=== PATIENT | female | born 1965 | race Caucasian/White ===

== ENCOUNTER 2017-10-22 17:03 | Emergency (ER) | payer OTHER, SELFPAY ==
[2017-10-22 17:06] VITALS: BP 119/74; PULSE 96; RESP 20; TEMP 36.6; O2SAT 99; BMI 36.6
[2017-10-22 17:31] VITALS: BP 131/81; PULSE 89; RESP 20; TEMP 36.6; O2SAT 98; BMI 36.6
--- NOTE | 2017-10-22 17:33 | XR_ITS ---
XR foot RT min 3V HISTORY: Posttraumatic pain ITS.REASON: FALL ORDERING PHYSICIAN: Alessia Welsh PATIENT AGE: 51 years COMPARISON: None FINDINGS: No fracture or dislocation. No lytic or blastic change. There is normal mineralization.. The joint spaces are well-preserved. No significant degenerative/arthritic changes. No erosive changes evident. Nonspecific decreased density is noted at the distal fifth metatarsal and proximal aspect of the proximal phalanx of the toe may be due to subcortical cyst. IMPRESSION: No acute finding
--- NOTE | 2017-10-22 17:33 | XR_ITS ---
XR ankle RT min 3V HISTORY: Pain following injury ITS.REASON: FALL ORDERING PHYSICIAN: Alessia Welsh PATIENT AGE: 51 years COMPARISON: None FINDINGS: No fracture or dislocation. No lytic or blastic change. There is normal mineralization.. The joint spaces are well-preserved. No significant degenerative/arthritic changes. No erosive changes evident. Mild soft tissues swelling laterally IMPRESSION: No acute fracture. Soft tissue swelling laterally
--- NOTE | 2017-10-22 18:29 | HMH.EDUTC ---
[facility] [place] Impression: Right ankle sprain Qualifiers: Encounter type: initial encounter Involved ligament of ankle: unspecified ligament Qualified Code(s): S93.401A - Sprain of unspecified ligament of right ankle, initial encounter Disposition: Home, Self-Care Condition on Discharge: Good Instructions: DI for Ankle Sprain, How To Perform RICE (Rest, Ice, Compress, Elevate), How to Apply an Jeff Wrap, How to Use Crutches Additional Instructions: * weight bearing as tolerated * Rest * ice 15-20 mins 3-4 times a day * Jeff wrap and ankle brace for support and swelling unless in shower. Be sure not too tight but not too loose either * Elevate as discussed as much as possible to help reduce swelling and therefore, pain * Ibuprofen every 6 hours as needed for pain and inflammation. If you need something more, you can take tylenol every 4 hours as needed as long as your primary care provider has told you it is ok to take both. Referrals: Faith Russell MD [Primary Care Provider] - (Follow up IMMEDIATELY for new or worsening symptoms OR no noticeable improvement over the next 3-5 days.) Time of Disposition: 18:52 Medical Decision Making Vital Signs: 10/22/17 17:06 10/22/17 17:31 Temperature 98 F 97.9 F Temperature Source Tympanic Temporal Artery Scan Pulse Rate [Right Radial] 96 H 89 Respiratory Rate 20 20 Blood Pressure [Right Arm] 119/74 131/81 Blood Pressure Mean [Right Arm] 89 97 02 Sat by Pulse Oximetry 99 98 Oxygen Delivery Method Room Air Orders (Tests/Meds): ORDERS Category Date Time Status XR ankle RT min 3V Stat Exams 10/22/17 17:33 Taken XR foot RT min 3V Stat Exams 10/22/17 17:33 Taken - Radiology Data #1 Image(s): Ankle, Foot/Toes Image Reviewed: Yes I reviewed the patient's radiology image w/the ED provider Preliminary Findings: Normal/NAD Rvwd w/ MARCELLA Hernandez MD. - [place] Inquiry Pt receiving controlled substance: No [facility] [place] - General Stated complaint: AO 10/22/17 @ 1630 Fell inj to right ankle Time Seen by Provider: 10/22/17 17:30 Mode of Arrival: Wheelchair Source of Information: Patient Limitations: No Limitations Description of Symptoms (Recalled from Triage Doc. by RN): PT STATES SHE FELL AND HURT RIGHT FOOT AND IS NON WEIGHT BEARING. HEENT Symptoms (Recalled from RN notes): No Resp Symptoms (Recalled from RN notes): No Skin Symptoms (Recalled from RN notes): No MS Symptoms (Recalled from RN notes): Yes (RIGHT FOOT INJURY) Functional Status (Recalled from RN notes): NA - History of Present Illness Provider Complaint: c/o right ankle and foot pain. Reports that approx one hour before arrival she twisted her ankles. Walked down steps on porch and as she planted her left foot, ankle twisted causing her to twist the right. Minimal pain left ankle like a bruise. I am not worried about it. but having trouble bearing weight on right. No treatment before arrival. Pain worse with ambulation and ROM. Denies N/T - Related Data Allergies Allergy/AdvReac Type Severity Reaction Status Date / Time No Known Allergies Allergy Verified 10/22/17 17:37 - Worker's Comp Is this a Worker's Comp case?: No [facility] History I have reviewed the patient's past medical history: Yes (denies PMHx) Medical History: Denies:: Cancer, Diabetes Mellitus Type 1, Diabetes Mellitus Type 2, Hypertension, MRSA Other Surgeries: Yes: Other (cholecystectomy) Amputation: No Fractures: No - Social History Smoking Status: Current every day smoker Tobacco Type: cigarettes Alcohol Intake: never - Psychiatric History Expresses thoughts of harming self/others: None Suicide Plan Description: No Plan ROS Obtained: Yes Systems reviewed as appropriate & no additional complaints - Musculoskeletal Musculoskeletal: Reports as per HPI, Reports joint swelling (right ankle), Reports radiating pain into limb (into foot) - Integumentary/Breasts Skin/Breast: Denies change in skin color, Rama
--- NOTE | 2017-10-22 18:33 | ED_ITS ---
[facility] [place] Clinical Impression: Right ankle sprain Qualifiers: Encounter type: initial encounter Involved ligament of ankle: unspecified ligament Qualified Code(s): S93.401A - Sprain of unspecified ligament of right ankle, initial encounter Disposition: Home, Self-Care Condition on Discharge: Good Instructions: DI for Ankle Sprain, How To Perform RICE (Rest, Ice, Compress, Elevate), How to Apply an Jeff Wrap, How to Use Crutches Additional Instructions: * weight bearing as tolerated * Rest * ice 15-20 mins 3-4 times a day * Jeff wrap and ankle brace for support and swelling unless in shower. Be sure not too tight but not too loose either * Elevate as discussed as much as possible to help reduce swelling and therefore , pain * Ibuprofen every 6 hours as needed for pain and inflammation. If you need something more, you can take tylenol every 4 hours as needed as long as your primary care provider has told you it is ok to take both. Referrals: Faith Russell MD [Primary Care Provider] - (Follow up IMMEDIATELY for new or worsening symptoms OR no noticeable improvement over the next 3-5 days.) Time of Disposition: 18:52 Medical Decision Making Vital Signs: 10/22/17 17:06 10/22/17 17:31 Temperature 98 F 97.9 F Temperature Source Tympanic Temporal Artery Scan Pulse Rate [Right Radial] 96 H 89 Respiratory Rate 20 20 Blood Pressure [Right Arm] 119/74 131/81 Blood Pressure Mean [Right Arm] 89 97 02 Sat by Pulse Oximetry 99 98 Oxygen Delivery Method Room Air Orders (Tests/Meds): ORDERS Category Date Time Status XR ankle RT min 3V Stat Exams 10/22/17 17:33 Taken XR foot RT min 3V Stat Exams 10/22/17 17:33 Taken - Radiology Data #1 Image(s): Ankle, Foot/Toes Image Reviewed: Yes I reviewed the patient's radiology image w/the ED provider Preliminary Findings: Normal/NAD Rvwd w/ MARCELLA Hernandez MD. - Bienvenido Inquiry Pt receiving controlled substance: No [facility] [place] HPI - General Stated complaint: AO 10/22/17 @ 1630 Fell inj to right ankle Time Seen by Provider: 10/22/17 17:30 Mode of Arrival: Wheelchair Source of Information: Patient Limitations: No Limitations Description of Symptoms (Recalled from Triage Doc. by RN): PT STATES SHE FELL AND HURT RIGHT FOOT AND IS NON WEIGHT BEARING. HEENT Symptoms (Recalled from RN notes): No Resp Symptoms (Recalled from RN notes): No Skin Symptoms (Recalled from RN notes): No MS Symptoms (Recalled from RN notes): Yes (RIGHT FOOT INJURY) Functional Status (Recalled from RN notes): NA - History of Present Illness Provider Complaint: c/o right ankle and foot pain. Reports that approx one hour before arrival she twisted her ankles. Walked down steps on porch and as she planted her left foot, ankle twisted causing her to twist the right. Minimal pain left ankle like a bruise. I am not worried about it. but having trouble bearing weight on right. No treatment before arrival. Pain worse with ambulation and ROM. Denies N/T - Related Data Allergies Allergy/AdvReac Type Severity Reaction Status Date / Time No Known Allergies Allergy Verified 10/22/17 17:37 - Worker's Comp Is this a Worker's Comp case?: No [facility] History I have reviewed the patient's past medical history: Yes (denies PMHx) Medical History: Denies:: Cancer, Diabetes Mellitus Type 1, Diabetes Mellitus Type 2, Hypertension, MRSA Other Surgeries: Yes: Other (chol
[2017-10-22 18:45] VITALS: BP 126/85; PULSE 76; RESP 18; TEMP 36.8; O2SAT 99
== END 2017-10-22 18:45 | disposition home or self-care (01) ==
LOC: ER 17:11 → UTC 17:12
PROVIDERS: Emergency Provider Nurse Practitioner Family; Family Provider Family Medicine; PCP Family Medicine
DX: S93.401A Sprain of unspecified ligament of right ankle, initial encounter (principal); W10.9XXA Fall (on) (from) unspecified stairs and steps, initial encounter; Y92.019 Unspecified place in single-family (private) house as the place of occurrence of the external cause; Z90.49 Acquired absence of other specified parts of digestive tract; F17.210 Nicotine dependence, cigarettes, uncomplicated
CPT/HCPCS: 73610; 73630; 99202; 99281

== ENCOUNTER → 2019-05-14 08:18 | Outpatient (CLI) | payer OTHER, SELFPAY ==
--- NOTE | 2019-05-14 08:22 | CT_ITS ---
PROCEDURE: CT LUNG SCREENING CLINICAL INDICATION: CURRENT TOBACCO USE Eighty pack-year smoking history, asymptomatic for lung cancer. COMPARISON: No exams were available for comparison TECHNIQUE: The exam was performed on a GE Light Speed [address] scanner using 2.90 mGy CTDI. A low dose helical CT CHEST was performed on a multi-detector scanner. All CT scans at the facility use one or more dose reduction, viz: automated exposure control, ma/kV adjustment per patient size (including targeted exams where dose is matched to indication, i.e. head), or iterative reconstruction technique. The LDCT was performed in a facility that meets the criteria for the screening program. Data regarding this exam was submitted to ACR which is an approved registry. The order for this exam indicates that it came as a result of a lung cancer screening counseling shard decision-making visit that included all the elements required of such a visit including smoking cessation. The radiologist interpreting this exam meets the CMS criteria for the LDCT lung cancer screening program. The exam is reported using the Lung-RADS classification scale and reported to the ACR registry. NOTE: This study was performed for the specific purposes of lung cancer screening and is not an alternative to diagnostic chest CT. RADIATION DOSE: CTDI vol(CT dose Index-volume) = 2.90mG DLP (Dose Length Product) = 99.4 mGcm FINDINGS: Centrilobular emphysema. Bronchial thickening with hyperinflation consistent with bronchitis. There are 2 nodular densities in the right upper lobe measuring 3 mm each nonspecific. 4 mm noncalcified nodule right upper lobe anteriorly. 4 mm noncalcified nodule right middle lobe. Calcified granuloma right middle lobe. 4 mm nodule superior segment right lower lobe 5 mm nodule central aspect right lower lobe. Calcified nodule right lower lobe posterior laterally. 5 mm nodule lingula. Mild atelectatic or fibrotic changes are present in the lingula. Calcified nodule lingula inferiorly. OTHER FINDINGS: Left adrenal nodule at 2 cm consistent with an adenoma. IMPRESSION: Lung rads category 3 probably benign findings. There are multiple noncalcified nodules. Suggest 6 month follow-up COPD/centrilobular emphysema. Left adrenal adenoma Recommend six-month diagnostic CT to confirm short term stability of the multiple nodules Dictated by: Teo Maurice MD 05/16/2019 09:48 Electronically signed by Teo Maurice MD in [place] 05/20/2019 10:44
== END ==
PROVIDERS: PCP Family Medicine; Visit Provider Family Medicine
DX: Z87.891 Personal history of nicotine dependence (principal); Z12.2 Encounter for screening for malignant neoplasm of respiratory organs
CPT/HCPCS: 36415

== ENCOUNTER → 2020-03-26 11:09 | Outpatient (CLI) | payer OTHER, SELFPAY ==
[2020-03-26 11:45] VITALS: PULSE 89; PULSE 92
--- NOTE | 2020-03-26 12:10 | CT_ITS ---
PROCEDURE: CT CHEST W CON CLINCAL INDICATION: PULMONARY NODULE Follow-up pulmonary nodule COMPARISON: CT CT LUNG SCREENING from 05/14/2019 TECHNIQUE: IV Contrast: 75ml Optiray 350 Axial images obtained with sagittal and coronal reformats. All CT scans at the facility use one or more dose reduction, viz: automated exposure control, ma/kV adjustment per patient size (including targeted exams where dose is matched to indication, i.e. head), or iterative reconstruction technique. FINDINGS: HEART AND MEDIASTINAL STRUCTURES: No mediastinal or hilar mass or adenopathy. No evidence of aortic aneurysm or central pulmonary embolus. There is minimal thickening of the pericardium anteriorly. LUNGS AND PLEURAL SPACES: COPD with centrilobular emphysema. There is a mild degree of motion artifact which somewhat obscures fine detail. There are stable small bilateral pulmonary nodules as previously described. A subpleural nodular density noted in the superior segment right lower lobe series 3, image 45 is present along the major fissure measuring 4 mm not significantly changed. There is evidence of old granulomatous disease. There is some mild diffuse bronchial thickening. Minimal nodularity also noted in the left major fissure unchanged superiorly. Subpleural nodule superior segment left lower lobe at 3 mm image 35 series 3 unchanged faint 4 mm sub solid nodule in the lingula image 55 series 3 unchanged. No new nodules are evident. There are some fibrotic changes in the left lung base. The BONY STRUCTURES: No acute bony abnormalities apparent. UPPER ABDOMEN: The no change in the 1.3 cm left adrenal nodule the ADDITIONAL FINDINGS: No other significant abnormalities. IMPRESSION: COPD with centrilobular emphysema with stable appearance of the chest. No change in the small pulmonary nodules with no new nodules evident. Recommend annual LD CT for follow-up. Dictated b Teo Maurice MD 03/27/2020 10:17 Teo Maurice MD in [place] 03/27/2020 10:17
== END ==
PROVIDERS: PCP Family Medicine; Visit Provider Family Medicine
DX: R06.02 Shortness of breath (principal)
CPT/HCPCS: 71260; 94060; 94640; Q9967

== ENCOUNTER → 2021-06-17 12:18 | Outpatient (CLI) | payer OTHER, SELFPAY ==
--- NOTE | 2021-06-17 12:30 | XR_ITS ---
PROCEDURE: XR CHEST PORTABLE CLINICAL HISTORY: COVID TESTING, no symptoms, smoking history COMPARISON: CT CT CHEST W CON from 03/26/2020 FINDINGS: The cardiomediastinal silhouette and pulmonary vascularity are within normal limits. The lungs are clear without infiltrates, suspicious nodules, or pleural effusions. No acute bony abnormalities. IMPRESSION: No acute findings. Dictated by: Dr. Zackary Ovalles MD 06/17/2021 12:47 Dr. Zackary Ovalles MD in [place] 06/17/2021 12:47
[2021-06-17 13:12] LABS: Basophils % 0.4 % (0.1-2.0); Eosinophils # 0.1 K/mm3 (0.0-0.4); Eosinophils % 1.2 % (0.1-12.0); Hematocrit 45.1 % (37.0-47.0); Hemoglobin 14.3 g/dL (12.2-16.2); Lymphocytes # 1.8 K/mm3 (0.7-4.5); Lymphocytes % 20.8 % (10-50); Mean Corpuscular HGB Conc 31.7 g/dL (31.8-35.4); Mean Corpuscular Hemoglobin 28.7 pg (27.0-31.2); Mean Corpuscular Volume 90.5 fl (81-99); Mean Platelet Volume 7.5 fl (7.4-10.4); Monocytes # 0.3 K/mm3 (0.1-1.0); Monocytes % 3.3 % (1.7-9.3); Neutrophils # 6.5 K/mm3 (1.8-7.8); Neutrophils % 74.2 % (37.0-80.0); Platelet Count 328 K/mm3 (142-424); Red Blood Count 4.99 M/mm3 (4.20-5.40); Red Cell Distribution Width 13.4 % (11.5-17.5); White Blood Count 8.7 K/mm3 (4.8-10.8)
== END ==
PROVIDERS: PCP Family Medicine; Visit Provider Family Medicine
DX: Z20.822 Contact with and (suspected) exposure to COVID-19 (principal)
CPT/HCPCS: 36415; 71045; 85025; C9803; U0003; U0005

== ENCOUNTER → 2021-09-28 17:36 | Outpatient (CLI) | payer OTHER, SELFPAY ==
[2021-09-28 18:14] VITALS: BMI 22.3
== END ==
PROVIDERS: Visit Provider Nurse Practitioner
DX: U07.1 COVID-19 (principal)
CPT/HCPCS: C9803; U0003; U0005

== ENCOUNTER → 2021-11-17 09:44 | Outpatient (CLI) | payer OTHER, SELFPAY ==
--- NOTE | 2021-11-17 | US_ITS ---
FINAL REPORT CLINICAL HISTORY: .sore throat FINDINGS: THYROID ULTRASOUND Sonographic images of the thyroid was obtained. The right lobe of the thyroid measures 4.1 x 1.5 x 1.3 cm. The left lobe of the thyroid measures 4.0 x 1.7 x 1.4 cm. The isthmus measures 3 mm. There is a 1.4 x 0.8 x 0.9 cm nodule in the right lobe which is predominantly solid and hypoechoic, TI-RADS 4. In the left lobe there are the following nodules: 1.2 x 1.1 x 0.9 cm predominately cystic with septations, TI-RADS 1. 0.3 x 0.3 x 0.3 cm in the lower pole which is solid and hypoechoic, TI-RADS 4. A 0.7 x 0.6 solid and hypoechoic, TI-RADS 4. IMPRESSION: Bilateral nodules as described. Recommend follow-up ultrasound in 6 months. Reviewed, Interpreted and Dictated by Tony Bar III, MD Transcribed by Billie Wilkes Authenticated by Tony Bar III, MD on 11/17/2021 11:28:[address] [facility]
--- NOTE | 2021-11-17 09:47 | US_ITS ---
FINAL REPORT CLINICAL HISTORY: CERVICAL LYMPHADENOPATHY; SORE THROAT; AREA OF PAIN UPPER RT NECK FINDINGS: Sonographic images of the neck soft tissue were obtained. There are small normal size lymph nodes in the neck bilaterally. No other mass or fluid collection is identified. IMPRESSION: No abnormal mass or fluid collection identified. Reviewed, Interpreted and Dictated by Tony Bar III, MD Transcribed by Krystal Anderson Authenticated by Tony Bar III, MD on 11/17/2021 03:47:39 PM [facility]
== END ==
LOC: RAD 09:44
PROVIDERS: PCP Family Medicine; Visit Provider Nurse Practitioner
DX: R59.0 Localized enlarged lymph nodes (principal)
CPT/HCPCS: 76536

== ENCOUNTER → 2022-04-06 07:01 | Outpatient (CLI) | payer OTHER, SELFPAY | LOC: LAB.DROPOF 04-07 07:01 | PROVIDERS: PCP Nurse Practitioner; Visit Provider Nurse Practitioner | DX: N30.01 Acute cystitis with hematuria (principal); R30.0 Dysuria | CPT/HCPCS: 87086 ==

== ENCOUNTER 2022-05-28 18:09 | Emergency (ER) | payer OTHER, SELFPAY ==
[2022-05-28 19:10] VITALS: BP 122/69; PULSE 87; RESP 19; TEMP 36.8; O2SAT 96; BMI 32.9
--- NOTE | 2022-05-28 19:27 | EXP.UTC ---
Discharge Plan Disposition Patient Disposition: Home, Self-Care Condition: Good Prescriptions Prescriptions: New benzonatate [benzonatate] 100 mg capsule 100 mg PO TIDP PRN (Reason: Cough) Qty: 30 0RF ondansetron 4 mg Tablet,Disintegrating 4 mg PO Q8H PRN (Reason: Nausea) Qty: 12 0RF No Action cefuroxime axetil 500 mg tablet 500 mg PO BID 7 Days Qty: 14 0RF Referrals Follow up/Referrals: Newton Chatterjee MD [Primary Care Provider] - See instructions Activity Restrictions/Add. Instructions Additional Instructions/Restrictions: Drink plenty of fluids. Take tylenol or ibuprofen for pain or fever. Take the medications as directed. Follow up with your regular doctor. GO TO THE ER FOR ANY WORSENING SYMPTOMS Quarantine until you know the results of your covid-19 test. Notify your school or workplace of your results and follow their instructions regarding return to work/school. Clinical Impressions Clinical Impression: Viral syndrome Instructions Patient Instructions: Coronavirus Disease 2019, Preventing the Spread of Coronavirus Discharge Instructions Discharge ED Provider: Anoop Walker [facility] General Stated complaint: covid test Mode of Arrival: Ambulatory Source of Information: Patient Limitations: No Limitations Time Seen by Provider: 05/28/22 19:26 HEENT Symptoms (Recalled from RN notes): Yes Resp Symptoms (Recalled from RN notes): Yes Skin Symptoms (Recalled from RN notes): No MS Symptoms (Recalled from RN notes): No Functional Status (Recalled from RN notes): n/a History of Present Illness Provider Complaint: pt here for covid test. She was exposed Tuesday. symptoms include headache, body aches, fever, chills, cough. Related Data Previous Rx's Medication Instructions Recorded cefuroxime axetil 500 mg tablet 500 mg PO BID 7 days #14 tabs 04/06/22 benzonatate 100 mg capsule 100 mg PO TIDP PRN Cough #30 caps 05/28/22 ondansetron 4 mg disintegrating 4 mg PO Q8H PRN Nausea #12 tabs 05/28/22 tablet Allergies Allergy/AdvReac Type Severity Reaction Status Date / Time No Known Allergies Allergy Verified 05/28/22 19:13 Worker's Comp Is this a Worker's Comp case?: No [facility] Social History Smoking Status: Current every day smoker tobacco type: cigarettes alcohol intake: never current occupational status: employed Travel in the last 8 weeks: None ROS Obtained: Yes All systems reviewed & no additional complaints except as documented Constitutional Constitutional: Reports chills and Reports fever(s) Eyes Eyes: Denies eye discharge ENT Ears, Nose, Mouth, and Throat: Reports as per HPI Cardiovascular Cardiovascular: Denies chest pain Respiratory Respiratory: Denies chest congestion and Reports cough Gastrointestinal Gastrointestingal: Reports nausea; Denies abdominal pain, constipation, cramping, diarrhea or vomiting Musculoskeletal Musculoskeletal: Denies arthralgias Integumentary/Breasts Skin/Breast: Denies rash Neurologic Neurologic: Denies paresthesias Physical Exam General General appearance: alert and in no apparent distress Head Head exam: atraumatic, normocephalic and normal inspection Eye Eye exam: Present normal appearance, PERRL and EOMI ENT ENT exam: Present normal exam, normal oropharynx, mucous membranes moist, TM's normal bilaterally and normal external ear exam Neck Neck exam: Present normal inspection, full ROM and trachea midline; Absent meningismus or lymphadenopathy Chest Chest inspection: Present normal inspection and symmetric chest wall rise; Absent tenderness Respiratory Respiratory exam: Present normal lung sounds bilaterally; Absent respiratory distress Cardiovascular Cardiovascular exam: Present regular rate and normal rhythm; Absent JVD Abdominal Exam Abdominal exam: Present soft and normal bowel sounds; Absent distention, tenderness or guarding Extremities Exam Ex
[2022-05-28 19:35] VITALS: BP 122/69; PULSE 87; RESP 19; TEMP 36.8
== END 2022-05-28 19:52 | disposition home or self-care (01) ==
PROVIDERS: Emergency Provider Nurse Practitioner Family; PCP Family Medicine
DX: U07.1 COVID-19 (principal)
CPT/HCPCS: 99212; C9803; G0463; U0003; U0005

== ENCOUNTER → 2022-07-12 13:57 | Outpatient (CLI) | payer OTHER, SELFPAY ==
--- NOTE | 2022-07-12 14:01 | XR_ITS ---
FINAL REPORT CLINICAL HISTORY: COPD exacerbation, RLL pneumonia, former smoker, quit today. COMPARISON: 06/17/2021 FINDINGS: 2 views of the chest were obtained . The heart is normal in size. The mediastinum is within normal limits. There is mild bronchial wall thickening which may represent bronchitis. There is no pneumothorax. Osseous structures are unremarkable. IMPRESSION: Mild bronchial wall thickening which may represent bronchitis . Reviewed, Interpreted and Dictated by Tony Bar III, MD Transcribed by Bertha Alonzo Authenticated and [facility]
== END ==
PROVIDERS: PCP Family Medicine; Visit Provider Nurse Practitioner
DX: J18.9 Pneumonia, unspecified organism (principal); J44.1 Chronic obstructive pulmonary disease with (acute) exacerbation
CPT/HCPCS: 71046

== ENCOUNTER → 2022-07-14 16:58 | Outpatient (CLI) | payer OTHER, SELFPAY ==
[2022-07-14 17:02] LABS: Adenovirus,PCR Not Detected (NotDetected); Bordetella Pertussis Not Detected (NotDetected); Chlamydophila Pneumoniae, PCR Not Detected (NotDetected); Coronavirus 19, PCR Not Detected (NotDetected); Coronavirus 229E Not Detected (NotDetected); Coronavirus NL63 Not Detected (NotDetected); Coronavirus OC43 Not Detected (NotDetected); Coronovirus HKU1,PCR Not Detected (NotDetected); Human Metapneumovirus Not Detected (NotDetected); Influenza A, PCR Not Detected (NotDetected); Influenza AH1, 2009 Not Detected (NotDetected); Influenza AH1, PCR Not Detected (NotDetected); Influenza AH3,PCR Not Detected (NotDetected); Influenza B, PCR Not Detected (NotDetected); Mycoplasma Pneumoniae, PCR Not Detected (NotDetected); Parainfluenza 1, PCR Not Detected (NotDetected); Parainfluenza 2, PCR Not Detected (NotDetected); Parainfluenza 3, PCR Not Detected (NotDetected); Parainfluenza 4, PCR Not Detected (NotDetected); Rhinovirus/Enterovirus Not Detected (NotDetected)
[2022-07-14 17:33] LABS: Basophils # 0.1 K/mm3 (0-0.2); Basophils % 1.2 % (0.1-2.0); Eosinophils # 0.2 K/mm3 (0.0-0.4); Eosinophils % 2.2 % (0.1-12.0); Hematocrit 46.6 % (37.0-47.0); Lymphocytes # 2.9 K/mm3 (0.7-4.5); Lymphocytes % 29.5 % (10-50); Mean Corpuscular HGB Conc 32.3 g/dL (31.8-35.4); Mean Corpuscular Hemoglobin 27.7 pg (27.0-31.2); Mean Corpuscular Volume 85.8 fl (81-99); Mean Platelet Volume 8.4 fl (7.4-10.4); Monocytes # 0.3 K/mm3 (0.1-1.0); Monocytes % 3.3 % (1.7-9.3); Neutrophils # 6.3 K/mm3 (1.8-7.8); Neutrophils % 63.7 % (37.0-80.0); Platelet Count 322 K/mm3 (142-424); Red Blood Count 5.43 M/mm3 (4.20-5.40); Red Cell Distribution Width 14.8 % (11.5-17.5); White Blood Count 9.9 K/mm3 (4.8-10.8)
[2022-07-14 18:52] LABS: Chloride 98 mmol/L (98-107); Potassium 5.1 mmoL/L (3.5-5.1); Sodium 137 mmol/L (136-145)
[2022-07-14 18:55] LABS: Alanine Aminotransferase 64 U/L (12-78); Albumin/Globulin Ratio 1.3 (1.1-1.8); Alkaline Phosphatase 111 U/L (38-126); Anion Gap 10.1 mEq/L (5-15); Aspartate Amino Transferase 43 U/L (14-36); Bilirubin,Total 0.2 mg/dl (0.2-1.3); Blood Urea Nitrogen 14 mg/dl (7-17); Carbon Dioxide 34 mmol/L (22.0-30.0); Estimated Glomerular Filt Rate 74 ml/min (>60); GFR (African American) 89 ML/MIN (>60)
[2022-07-14 18:56] LABS: Calcium 9.7 mg/dl (8.4-10.2); Glucose 94 mg/dl (74-100)
[2022-07-14 21:15] LABS: Respiratory Syncytial Virus Detected (NotDetected)
[2022-07-19 17:54] LABS: Histoplasma Gal'mannan Ag Ur <0.5 (<0.5 ng/mL)
== END ==
LOC: LAB 16:58
PROVIDERS: PCP Family Medicine; Visit Provider Nurse Practitioner
DX: J18.9 Pneumonia, unspecified organism (principal); J44.1 Chronic obstructive pulmonary disease with (acute) exacerbation; B97.4 Respiratory syncytial virus as the cause of diseases classified elsewhere
CPT/HCPCS: 36415; 80053; 85025; 87070; 87116; 87186; 87205; 87206; 87385; 87581; 87632; 87798; C9803; U0003; U0005

== ENCOUNTER → 2022-07-20 14:54 | Outpatient (CLI) | payer OTHER, SELFPAY ==
--- NOTE | 2022-07-20 15:00 | CT_ITS ---
FINAL REPORT TECHNIQUE: Axial CT images of the chest were obtained with contrast. Coronal reformatted images were also obtained. This study was performed with techniques to keep radiation doses as low as reasonably achievable, (ALARA). Individualized dose reduction techniques using automated exposure control or adjustment of mA and/or KV according to the patient's size were employed. CLINICAL HISTORY: LLL pneumonia COMPARISON: March 2020 FINDINGS: There is no evidence of mediastinal or hilar mass or adenopathy. No axillary mass or adenopathy is identified. Scattered tiny nodular areas are stable compatible with inflammatory nodules. No acute pulmonary opacity. Chronic bronchial wall thickening compatible with bronchitis. Underlying emphysema. Stable left adrenal nodule most likely an adenoma. IMPRESSION: No acute lung disease. Stable scattered tiny nodules, most likely postinflammatory. Reviewed, Interpreted and Dictated by Faith Claudio MD Transcribed by Fuad Jimenez Authenticated and . [facility]
== END ==
LOC: RAD 14:57
PROVIDERS: PCP Family Medicine; Visit Provider Nurse Practitioner
DX: J44.1 Chronic obstructive pulmonary disease with (acute) exacerbation (principal); J18.9 Pneumonia, unspecified organism
CPT/HCPCS: 71260; Q9967

== ENCOUNTER 2023-05-29 21:03 | Inpatient (IN) | payer OTHER, SELFPAY ==
[2023-05-29] VITALS (7 sets, daily range): BP systolic 120–142; BP diastolic 70–91; PULSE 100–124; RESP 18–29; TEMP 36.6–36.8; O2SAT 88–95; BMI 36.6; BMI 36.1
--- NOTE | 2023-05-29 21:06 | ECG_ITS ---
APPROVED REPORT Exam: Resting ECG HR:119 bpm ECG Measurements Heart Rate 119 AXES [place] 161 P 80 QRSd 73 QRS 77 QT 288 T 68 QTc 359 Conclusion SINUS TACHYCARDIA ABNORMAL RHYTHM ECG UNCONFIRMED REPORT Electronically signed by : Elan Ley MD 05/30/2023 19:39:14
--- NOTE | 2023-05-29 21:26 | XR_ITS ---
PROCEDURE INFORMATION: Exam: XR Chest Exam date and time: 05/29/2023 9:52 PM Age: 57 years old Clinical indication: Cough and shortness of breath and other: Tightness; Smoker's cough; Additional info: Dyspnea TECHNIQUE: Imaging protocol: Radiologic exam of the chest. Views: 1 view. COMPARISON: CT CHEST W CON 07/20/2022 3:13 PM FINDINGS: Lungs: No evidence of acute pulmonary disease or infiltrates; lung bland appear clear. Pleural spaces: No evidence of pleural effusion, pneumothorax, or pleural thickening in the visualized pleural spaces. Heart/Mediastinum: No evidence of mediastinal widening or cardiac silhouette enlargement; the mediastinum and heart appear within normal limits for contour and size. Diaphragm: Slight elevation of left hemidiaphragm Bones/joints: No evidence of acute osseous abnormalities within the visualized portions of the thoracic spine and ribs. Osseous structures appear appropriate for patient age. IMPRESSION: No dense parenchymal consolidation, pleural effusion, or pneumothorax.
--- NOTE | 2023-05-29 21:28 | HMH.EDGENADL ---
Discharge Plan Disposition Patient Disposition: Still a Patient Prescriptions Prescriptions: No Action No Known Home Medications Referrals Follow up/Referrals: Annette Resendiz APRN [Primary Care Provider] - See instructions Clinical Impressions Clinical Impression: Acute exacerbation of chronic obstructive airways disease, Hypoxemia requiring supplemental oxygen, Acute hypercapnic respiratory failure Discharge ED Provider: Cheli Flowers General Adult HPI General Chief complaint: Shortness of Breath/Dyspnea Stated complaint: chest tightness/COPE Time Seen by Provider: 05/29/23 21:16 Mode of Arrival: Ambulatory Source of Information: Patient Limitations: No Limitations Description of Symptoms (Recalled from ER Triage Doc. by RN): pt reports increase SOA and chest tightness since yesterday am, reports productive cough. States she has COPD. History of Present Illness HPI narrative: Patient is a 57-year-old female with a history of COPD who for the last 2 days has had cough fevers chills headache cough increasing sputum production increasing wheezing and shortness of breath over the last 48 hours. She has not had her flu vaccine or COVID vaccines in the past. She has not had any sick contacts that she is aware of. Tmax has been 98 but she states she is felt febrile at home. No chest pain chest tightness. Denies any history of heart failure or any other past medical history. Related Data Home Medications Medication Instructions Recorded Confirmed No Known Home Medications 05/29/23 05/29/23 Allergies Allergy/AdvReac Type Severity Reaction Status Date / Time No Known Allergies Allergy Verified 07/14/22 15:29 [facility] Disclaimer: The information contained in this section may have been updated after the patient was seen, as this information can be updated by other users. Medical History (Updated 05/29/23 @ 22:24 by Cheli Flowers MD) Chronic obstructive pulmonary disease Surgical History (Updated 07/14/22 @ 15:31 by Veronica Saeed) History of cholecystectomy Family History (Updated 07/14/22 @ 15:31 by Veronica Saeed) Other Cancer Diabetes Hyperlipidemia Hypertension Social History Smoking Status: Current every day smoker tobacco type: cigarettes alcohol intake: never current occupational status: employed Travel in the last 8 weeks: None ROS Obtained: Yes All systems reviewed & no additional complaints except as documented Physical Exam General General appearance: alert and in no apparent distress Respiratory Respiratory exam: Present other (Diffuse expiratory wheezing primarily in the bilateral bases no excess or muscle use no respiratory distress oxygen saturations 88% on room air onto his nasal cannula oxygen saturations 94%) Cardiovascular Cardiovascular exam: Present regular rate; Absent tachycardia Neurological Exam Neurological exam: Present alert and oriented X3 Medical Decision Making Bienvenido Inquiry Pt receiving controlled substance: No Vital Signs: 05/29/23 21:03 05/29/23 21:31 05/29/23 22:01 Temperature 98.2 F Temperature Source Oral Pulse Rate 112 H 108 H Pulse Rate [Right] 124 H Respiratory Rate 24 22 Blood Pressure 139/72 Blood Pressure [Right Arm] 142/91 H Blood Pressure Mean 101 Blood Pressure Mean [Right Arm] 108 Blood Pressure Source [Right Arm] Automatic Cuff Blood Pressure Position [Right Arm] Supine 02 Sat by Pulse Oximetry 88 L 95 Oxygen Delivery Method Room Air Room Air 05/29/23 22:01 Temperature Temperature Source Pulse Rate 111 H Pulse Rate [Right] Respiratory Rate Blood Pressure Blood Pressure [Right Arm] Blood Pressure Mean Blood Pressure Mean [Right Arm] Blood Pressure Source [Right Arm] Blood Pressure Position [Right Arm] 02 Sat by Pulse Oximetry Oxygen Delivery Method Lab Data Lab results reviewed: Yes I
[2023-05-29 21:44] LABS: Basophils % 0.3 % (0.1-2.0); Eosinophils # 0.2 K/mm3 (0.0-0.4); Eosinophils % 2.3 % (0.1-12.0); Hematocrit 48.6 % (37.0-47.0); Hemoglobin 15.4 g/dL (12.2-16.2); Lymphocytes # 1.6 K/mm3 (0.7-4.5); Lymphocytes % 19.8 % (10-50); Mean Corpuscular HGB Conc 31.7 g/dL (31.8-35.4); Mean Corpuscular Hemoglobin 27.3 pg (27.0-31.2); Mean Platelet Volume 8.4 fl (7.4-10.4); Monocytes # 0.4 K/mm3 (0.1-1.0); Monocytes % 4.8 % (1.7-9.3); Neutrophils # 5.7 K/mm3 (1.8-7.8); Neutrophils % 72.8 % (37.0-80.0); Platelet Count 306 K/mm3 (142-424); Red Blood Count 5.66 M/mm3 (4.20-5.40); Red Cell Distribution Width 13.9 % (11.5-17.5); White Blood Count 7.8 K/mm3 (4.8-10.8)
[2023-05-29 21:47] LABS: Alanine Aminotransferase 30 U/L (12-78); Albumin Level 4.6 g/dl (3.5-5.0); Alkaline Phosphatase 109 U/L (38-126); Anion Gap 14.2 mEq/L (5-15); Aspartate Amino Transferase 35 U/L (14-36); Bilirubin,Total 0.4 mg/dl (0.2-1.3); Blood Urea Nitrogen 10 mg/dl (7-17); Calcium 8.9 mg/dl (8.4-10.2); Carbon Dioxide 29 mmol/L (22.0-30.0); Chloride 100 mmol/L (98-107); Creatinine Clearance Estimated 145 mL/min (50-200); Estimated Glomerular Filt Rate 102 ml/min (>60); GFR (African American) 124 ML/MIN (>60); Globulin 4.5 g/dL (1.3-3.2); Glucose 117 mg/dl (74-100); Potassium 4.2 mmoL/L (3.5-5.1); Sodium 139 mmol/L (136-145); Total Protein,Serum 9.1 g/dl (6.3-8.2)
[2023-05-29 21:58] LABS: VBG Base Excess -0.7 mmol/L (-2.4-2.3); VBG HCO3 26.5 mmol/L (23-30); VBG Oxygen Saturation 85.1 % (50-70); VBG PH 7.25 mmol/L (7.31-7.41); VBG PO2 51.8 mmol/L (28-40); VBG Total CO2 28.4 mmol/L (23-27)
[2023-05-29 21:58] LABS: NT Pro Brain Natriuretic Pep. 115 pg/mL (0-125)
[2023-05-29 22:02] LABS: VBG PCO2 61.2 mmol/L (35-51)
[2023-05-29 22:03] LABS: Troponin I < 0.01 ng/ml (0.00-0.034)
--- NOTE | 2023-05-29 22:04 | PC.NURSE ---
Will from [facility] called with critical values from the ABG. CO2- 61.2. PO2- 51. O2 sat- 85%. Advised RN and MD of results. CR
--- NOTE | 2023-05-29 22:26 | PC.NURSE ---
Called house for admission
[2023-05-29 22:48] LABS: Coronavirus 19, PCR Not Detected (NotDetected); Influenza A, PCR Not Detected (NotDetected); Influenza B, PCR Not Detected (NotDetected)
--- NOTE | 2023-05-29 22:55 | EXP.HP ---
History of Present Illness *Admission Date: 05/29/23 *Reason for visit:: SOB *History of present illness: This is a 57-year-old female with a PMHx of COPD and obesity who has had chills, headache and cough, increased wheezing and shortness of breath over the last 48 hours. She has not had any sick contacts that she is aware of. Tmax has been 98 but she states she is felt febrile at home. No chest pain chest tightness. Denied any history of heart failure or any other past medical history. Admitted for further treatment. [facility] Disclaimer: The information contained in this section may have been updated after the patient was seen, as this information can be updated by other users. Medical History (Updated 05/30/23 @ 04:14 by Wilfredo Rosenbaum APRN) Chronic obstructive pulmonary disease Surgical History (Updated 07/14/22 @ 15:31 by Veronica Saeed) History of cholecystectomy Family History (Updated 07/14/22 @ 15:31 by Veronica Saeed) Diabetes Hyperlipidemia Cancer Hypertension Social History Smoking Status: Current every day smoker tobacco type: cigarettes alcohol intake: never current occupational status: employed Travel in the last 8 weeks: None Review of Systems Review of Systems Review of systems:: pertinent systems reviewed and negative unless documented below Meds Home Medications and Allergies Home Medications Medication Instructions Recorded Confirmed Type albuterol sulfate 90 mcg/actuation 1 inh inhalation QIDP PRN 05/29/23 05/30/23 History aerosol inhaler (ProAir HFA) Shortness Of Breath ipratropium 0.5 mg-albuterol 3 mg 3 ml inhalation Q4HP PRN Shortness 05/29/23 05/30/23 History (2.5 mg base)/3 mL nebulization Of Breath soln umeclidinium 62.5 mcg-vilanterol 1 ea inhalation DAILY Breathing 05/29/23 05/29/23 History 25 mcg/actuation powdr for Problems inhalation (Anoro Ellipta) New Prescriptions to Start Prescriptions: Allergies Allergy/AdvReac Type Severity Reaction Status Date / Time No Known Allergies Allergy Verified 07/14/22 15:29 Exam Data for Last 24 hours Vital signs and Labs for Last 24 Hours: Temp Pulse Resp BP Pulse Ox O2 Del Method 97.9 F 100 H 24 120/71 94 L BiPAP 05/29/23 22:48 05/29/23 22:48 05/29/23 22:48 05/29/23 22:48 05/29/23 22:30 05/29/23 22:48 Laboratory Results - last 24 hr 05/29/23 21:08: WBC 7.8, RBC 5.66 H, Hgb 15.4, Hct 48.6 H, MCV 86.0, MCH 27.3, MCHC 31.7 L, RDW 13.9, Plt Count 306, MPV 8.4, Neut % (Auto) 72.8, Lymph % (Auto) 19.8, Mcculloch % (Auto) 4.8, Eos % (Auto) 2.3, Baso % (Auto) 0.3, Neut # (Auto) 5.7, Lymph # (Auto) 1.6, Mcculloch # (Auto) 0.4, Eos # (Auto) 0.2, Baso # (Auto) 0.0, Sodium 139, Potassium 4.2, Chloride 100, Carbon Dioxide 29, Anion Gap 14.2, BUN 10, Creatinine 0.60, Estimated Creat Clear 145, Estimated GFR 102, Est GFR ( Amer) 124, Glucose 117 H, Calcium 8.9, Total Bilirubin 0.4, AST 35, ALT 30, Alkaline Phosphatase 109, Troponin I < 0.01, NT-Pro-B Natriuret Pep 115, Total Protein 9.1 H D, Albumin 4.6, Globulin 4.5 H, Albumin/Globulin Ratio 1.0 L 05/29/23 21:29: VBG pH 7.25 L, VBG pCO2 61.2 H, VBG pO2 51.8 H, VBG HCO3 26.5, VBG Total CO2 28.4 H, VBG O2 Saturation 85.1 H, VBG Base Excess -0.7 05/29/23 22:14: Lactate 1.0 I & O for Last 24 hours: Intake & Output 05/26/23 05/27/23 05/28/23 05/29/23 23:59 23:59 23:59 23:59 Weight 90.718 kg Constitutional Constitutional: mild distress and cooperative *Routine HEENT Exam Head: Present normocephalic and atraumatic Eye: Present EOMI, PERRL and normal accommodation ENT: Present mucous membranes moist *Routine Neck Exam Neck: Present supple, full ROM and trachea midline *Routine Respiratory Exam Respiratory: Present wheezes, diminished air movement, normal respiratory effort and able to speak in complete sentences *Routine Cardiovascular Exam Cardiovascular: Present RRR, Normal S1,
--- NOTE | 2023-05-29 23:13 | PC.NURSE ---
Patient arrived to floor via stretcher at 22:56.
[2023-05-30] VITALS (9 sets, daily range): BP systolic 119–141; BP diastolic 65–78; PULSE 86–105; RESP 16–20; TEMP 36.7–37; O2SAT 90–96; BMI 36.1
[2023-05-30 00:58] LABS: Troponin I < 0.01 ng/ml (0.00-0.034)
[2023-05-30 04:09] LABS: Troponin I < 0.01 ng/ml (0.00-0.034)
[2023-05-30 06:58] LABS: Basophils % 0.2 % (0.1-2.0); Eosinophils # 0.1 K/mm3 (0.0-0.4); Hematocrit 44.6 % (37.0-47.0); Hemoglobin 14.4 g/dL (12.2-16.2); Lymphocytes # 0.7 K/mm3 (0.7-4.5); Mean Corpuscular HGB Conc 32.3 g/dL (31.8-35.4); Mean Corpuscular Hemoglobin 27.8 pg (27.0-31.2); Monocytes # 0.1 K/mm3 (0.1-1.0); Monocytes % 1.7 % (1.7-9.3); Neutrophils # 5.5 K/mm3 (1.8-7.8); Platelet Count 265 K/mm3 (142-424); Red Blood Count 5.18 M/mm3 (4.20-5.40); Red Cell Distribution Width 13.9 % (11.5-17.5); White Blood Count 6.4 K/mm3 (4.8-10.8)
[2023-05-30 07:02] LABS: MANUAL DIFFERENTIAL MANUAL DIFFERENTIAL (MANUAL DIFF)
[2023-05-30 07:04] LABS: Chloride 103 mmol/L (98-107); Potassium 4.7 mmoL/L (3.5-5.1); Sodium 137 mmol/L (136-145)
[2023-05-30 07:06] LABS: Alanine Aminotransferase 23 U/L (12-78); Aspartate Amino Transferase 30 U/L (14-36); Blood Urea Nitrogen 9 mg/dl (7-17); Creatinine Clearance Estimated 142 mL/min (50-200); Estimated Glomerular Filt Rate 102 ml/min (>60); GFR (African American) 124 ML/MIN (>60)
[2023-05-30 07:07] LABS: Albumin Level 4.2 g/dl (3.5-5.0); Albumin/Globulin Ratio 1.1 (1.1-1.8); Alkaline Phosphatase 98 U/L (38-126); Anion Gap 13.7 mEq/L (5-15); Bilirubin,Total 0.3 mg/dl (0.2-1.3); Calcium 8.4 mg/dl (8.4-10.2); Carbon Dioxide 25 mmol/L (22.0-30.0); Globulin 3.9 g/dL (1.3-3.2); Glucose 158 mg/dl (74-100); Magnesium 2.5 mg/dl (1.6-2.3); Total Protein,Serum 8.1 g/dl (6.3-8.2)
--- NOTE | 2023-05-30 07:19 | PC.NURSE ---
pt admitted for resp acidosis, pt alert and oriented x3, o2@2l/nc, blood cx.v sputum cx pending, abx given
[2023-05-30 07:53] LABS: Lymphocytes % 6 % (10-50); Monocytes % 2 % (2-9); Neutrophils % 90 % (42-76); Total Cells Counted 100
[2023-05-30 07:58] LABS: Platelet Estimate Normal; RBC Morphology Normal
[2023-05-30 08:30] LABS: Adenovirus,PCR Not Detected (NotDetected); Coronavirus 19, PCR Not Detected (NotDetected); Coronavirus 229E Not Detected (NotDetected); Coronavirus NL63 Not Detected (NotDetected); Coronovirus HKU1,PCR Not Detected (NotDetected); Human Metapneumovirus Not Detected (NotDetected); Influenza A, PCR Not Detected (NotDetected); Influenza AH1, 2009 Not Detected (NotDetected); Influenza AH1, PCR Not Detected (NotDetected); Influenza AH3,PCR Not Detected (NotDetected); Influenza B, PCR Not Detected (NotDetected); Parainfluenza 1, PCR Not Detected (NotDetected); Parainfluenza 2, PCR Not Detected (NotDetected); Parainfluenza 3, PCR Not Detected (NotDetected); Parainfluenza 4, PCR Not Detected (NotDetected); Respiratory Syncytial Virus Not Detected (NotDetected); Rhinovirus/Enterovirus Not Detected (NotDetected)
--- NOTE | 2023-05-30 11:18 | EXP.ACUTE.PN ---
Subjective *Date: 05/30/23 *Time: 12:58 Interval history: Continues to have dyspnea and new oxygen requirement this morning. Wheezy on exam. Afebrile overnight. No nausea or vomiting. Unable to move without drops in her oxygen saturation. Denies chest pain or confusion. On 1 L oxygen this morning. Medical Exam Vital signs and Labs for Last 24 Hours: Vital Signs Temp Pulse Pulse Resp BP BP Pulse Ox 05/30/23 11:14 101 H 05/30/23 11:14 105 H 05/30/23 11:14 94 L 05/30/23 09:00 05/30/23 08:00 94 L 05/30/23 07:59 98.6 F 99 H 18 141/77 H 90 L 05/30/23 07:20 94 L 05/30/23 07:00 05/30/23 05:00 05/30/23 04:00 98.2 F 86 20 134/78 96 05/30/23 03:00 05/30/23 01:00 05/29/23 23:00 05/29/23 23:34 05/29/23 23:24 98.1 F 103 H 18 124/73 95 05/29/23 22:48 97.9 F 100 H 24 120/71 05/29/23 22:30 101 H 29 H 120/71 94 L 05/29/23 22:00 108 H 28 H 123/70 95 05/29/23 22:01 111 H 05/29/23 22:01 108 H 05/29/23 21:31 112 H 22 139/72 95 05/29/23 21:03 98.2 F 124 H 24 142/91 H 88 L O2 Del Method O2 Flow Rate 05/30/23 11:14 05/30/23 11:14 05/30/23 11:14 Nasal Cannula 2 05/30/23 09:00 Room Air 05/30/23 08:00 Room Air 05/30/23 07:59 Room Air 05/30/23 07:20 Room Air 05/30/23 07:00 Nasal Cannula 2 05/30/23 05:00 Nasal Cannula 2 05/30/23 04:00 Nasal Cannula 05/30/23 03:00 Nasal Cannula 2 05/30/23 01:00 Nasal Cannula 2 05/29/23 23:00 Nasal Cannula 2 05/29/23 23:34 Nasal Cannula 2 05/29/23 23:24 Nasal Cannula 2 05/29/23 22:48 BiPAP 05/29/23 22:30 05/29/23 22:00 05/29/23 22:01 05/29/23 22:01 05/29/23 21:31 Room Air 05/29/23 21:03 Room Air Intake and Output 05/29/23 05/30/23 05/30/23 23:59 07:59 15:59 Intake Total 840 / 840 Output Total 0 / 0 0 / 0 Balance 0 / 0 840 / 840 0 / 840 Intake: Intake, Oral Amount 840 / 840 Output: Output, Urine Amount 0 / 0 0 / 0 Other: Number of Unmeasured Voids 1 3 1 Weight 88.989 kg 88.989 kg Patient Weight 05/30/23 23:59 Weight 88.989 kg Laboratory Results - last 24 hr 05/29/23 21:08: WBC 7.8, RBC 5.66 H, Hgb 15.4, Hct 48.6 H, MCV 86.0, MCH 27.3, MCHC 31.7 L, RDW 13.9, Plt Count 306, MPV 8.4, Neut % (Auto) 72.8, Lymph % (Auto) 19.8, Morton % (Auto) 4.8, Eos % (Auto) 2.3, Baso % (Auto) 0.3, Neut # (Auto) 5.7, Lymph # (Auto) 1.6, Morton # (Auto) 0.4, Eos # (Auto) 0.2, Baso # (Auto) 0.0, Sodium 139, Potassium 4.2, Chloride 100, Carbon Dioxide 29, Anion Gap 14.2, BUN 10, Creatinine 0.60, Estimated Creat Clear 145, Estimated GFR 102, Est GFR ( Amer) 124, Glucose 117 H, Calcium 8.9, Total Bilirubin 0.4, AST 35, ALT 30, Alkaline Phosphatase 109, Troponin I < 0.01, NT-Pro-B Natriuret Pep 115, Total Protein 9.1 H D, Albumin 4.6, Globulin 4.5 H, Albumin/Globulin Ratio 1.0 L 05/29/23 21:29: VBG pH 7.25 L, VBG pCO2 61.2 H, VBG pO2 51.8 H, VBG HCO3 26.5, VBG Total CO2 28.4 H, VBG O2 Saturation 85.1 H, VBG Base Excess -0.7 05/29/23 22:14: Lactate 1.0 05/29/23 22:43: SARS-CoV-2 (PCR) Not detected, Influenza A Untype (PCR) Not detected, Influenza Type B (PCR) Not detected 05/30/23 00:15: Troponin I < 0.01 05/30/23 03:32: Troponin I < 0.01 05/30/23 06:10: WBC 6.4, RBC 5.18, Hgb 14.4, Hct 44.6, MCV 86.0, MCH 27.8, MCHC 32.3, RDW 13.9, Plt Count 265, MPV 9.0, Neut % (Auto) 86.0 H, Lymph % (Auto) 11.0, Morton % (Auto) 1.7, Eos % (Auto) 1.0, Baso % (Auto) 0.2, Neut # (Auto) 5.5, Lymph # (Auto) 0.7, Morton # (Auto) 0.1, Eos # (Auto) 0.1, Baso # (Auto) 0.0, Total Counted 100, Neutrophils % (Manual) 90 H, Band Neutrophils % 2.0, Lymphocytes % (Manual) 6 L, Monocytes % (Manual) 2, Platelet Estimate Normal, RBC Morphology Normal, Sodium 137, Potassium 4.7, Chloride 103, Carbon Dioxide 25, Anion Gap 13.7, BUN 9, Creatinine 0.60, Estimated Creat Clear 142, Estimated GFR 102, Est GFR ( Amer) 124,
[2023-05-30 12:39] LABS: Coronavirus OC43 Detected (NotDetected)
[2023-05-31 04:00] VITALS: BP 130/73; PULSE 89; RESP 16; TEMP 36.7; O2SAT 96; BMI 36.1
--- NOTE | 2023-05-31 05:07 | PC.NURSE ---
Patient has had a restful night. Has remained on 1L NC and not complained of being SOB. Has been up to the bathroom independently. No issues noted by patient
[2023-05-31 06:14] VITALS: PULSE 93; PULSE 96; O2SAT 96
[2023-05-31 06:35] LABS: Basophils % 0.2 % (0.1-2.0); Eosinophils # 0.1 K/mm3 (0.0-0.4); Eosinophils % 0.9 % (0.1-12.0); Hemoglobin 12.8 g/dL (12.2-16.2); Lymphocytes # 1.7 K/mm3 (0.7-4.5); Lymphocytes % 24.6 % (10-50); Mean Corpuscular Hemoglobin 27.9 pg (27.0-31.2); Mean Corpuscular Volume 87.1 fl (81-99); Mean Platelet Volume 8.2 fl (7.4-10.4); Monocytes # 0.4 K/mm3 (0.1-1.0); Monocytes % 5.3 % (1.7-9.3); Neutrophils # 4.8 K/mm3 (1.8-7.8); Platelet Count 232 K/mm3 (142-424); Red Blood Count 4.59 M/mm3 (4.20-5.40); Red Cell Distribution Width 14.1 % (11.5-17.5); White Blood Count 6.9 K/mm3 (4.8-10.8)
[2023-05-31 06:47] LABS: Chloride 103 mmol/L (98-107); Potassium 3.7 mmoL/L (3.5-5.1); Sodium 137 mmol/L (136-145)
[2023-05-31 06:50] LABS: Anion Gap 9.7 mEq/L (5-15); Blood Urea Nitrogen 7 mg/dl (7-17); Calcium 7.9 mg/dl (8.4-10.2); Carbon Dioxide 28 mmol/L (22.0-30.0); Creatinine Clearance Estimated 142 mL/min (50-200); Estimated Glomerular Filt Rate 102 ml/min (>60); GFR (African American) 124 ML/MIN (>60); Glucose 99 mg/dl (74-100)
[2023-05-31 07:44] VITALS: BP 124/68; PULSE 94; RESP 18; TEMP 36.5; O2SAT 97
[2023-05-31 08:00] VITALS: O2SAT 95
--- NOTE | 2023-05-31 10:21 | EXP.DC.SUM ---
General Admission date:: 05/29/23 Discharge date: 05/31/23 HPI HPI HPI: This is a 57-year-old female with a PMHx of COPD and obesity who has had chills, headache and cough, increased wheezing and shortness of breath over the last 48 hours. She has not had any sick contacts that she is aware of. Tmax has been 98 but she states she is felt febrile at home. No chest pain chest tightness. Denied any history of heart failure or any other past medical history. Admitted for further treatment. Hospital Course Hospital Course Hospital Course: The patient was admitted to the telemetry unit with continuous pulse oximetry monitoring. Tobacco cessation was provided and nicotine replacement therapy was added to her regiment. Her laboratory studies and inflammatory markers were trended and identified stability. Her chest x-ray identified no acute disease. Nursing staff reported that she remained afebrile with stable vital signs and saturated appropriately on room air. A 6-minute walk test was acquired prior to discharge. She identified improvement and inquired about discharge home. She was encouraged to discontinue smoking and speak with her PCP concerning an outpatient sleep study. She will be discharged on a short course of steroids with PPI therapy and doxycycline twice daily for 7 days. I spent 35 minutes in [id number] time with the patient and nursing staff concerning the discharge process. We discussed the admitting diagnoses and hospital course. We discussed identified improvement and the patient's desire to be discharged. We reviewed inpatient studies and imaging. The patient voiced understanding on the importance of follow-up with her primary care provider and specialist(s). The patient plans to be compliant with the medication regimen prescribed and follow-up appointments. She understands that she can return to the emergency department with any sudden changes or concerns. Exam Data for Last 24 hours Vital signs and Labs for Last 24 Hours: Temp Pulse Resp BP Pulse Ox O2 Del Method O2 Flow Rate 97.7 F 94 H 18 124/68 95 Nasal Cannula 1 05/31/23 07:44 05/31/23 07:44 05/31/23 07:44 05/31/23 07:44 05/31/23 08:00 05/31/23 09:58 05/31/23 09:58 Laboratory Results - last 24 hr 05/30/23 08:15: Chlamy pneumoniae PCR TNP, Adenovirus (PCR) Not detected, B. pertussis DNA (PCR) TNP, Coronavirus OC43 (PCR) Detected A, Coronavirus HKU1 (PCR) Not detected, Coronavirus 229E (PCR) Not detected, SARS-CoV-2 (PCR) Not detected, Coronavirus NL63 (PCR) Not detected, Human Metapneumovir PCR Not detected, Influenza A (H1) PCR Not detected, Influ A (H1N1/09) PCR Not detected, Influenza A (H3) PCR Not detected, Influenza Type A (PCR) Not detected, Influenza Type B (PCR) Not detected, M. pneumoniae (PCR) TNP, Parainfluenza 1 (PCR) Not detected, Parainfluenza 2 (PCR) Not detected, Parainfluenza 3 (PCR) Not detected, Parainfluenza 4 (PCR) Not detected, RSV (PCR) Not detected, Entero/Rhino (PCR) Not detected 05/31/23 06:15: WBC 6.9, RBC 4.59, Hgb 12.8, Hct 40.0, MCV 87.1, MCH 27.9, MCHC 32.0, RDW 14.1, Plt Count 232, MPV 8.2, Neut % (Auto) 69.0, Lymph % (Auto) 24.6, Delta % (Auto) 5.3, Eos % (Auto) 0.9, Baso % (Auto) 0.2, Neut # (Auto) 4.8, Lymph # (Auto) 1.7, Delta # (Auto) 0.4, Eos # (Auto) 0.1, Baso # (Auto) 0.0, Sodium 137, Potassium 3.7 D, Chloride 103, Carbon Dioxide 28, Anion Gap 9.7, BUN 7, Creatinine 0.60, Estimated Creat Clear 142, Estimated GFR 102, Est GFR ( Amer) 124, Glucose 99, Calcium 7.9 L I & O for Last 24 hours: Intake & Output 05/28/23 05/29/23 05/30/23 05/31/23 23:59 23:59 23:59 23:59 Intake Total 1550 / 1700 370 / 370 Output Total 0 / 0 0 / 0 0 / 0 Balance 0 / 0 1550 / 1700 370 / 370 Weight 88.989 kg 88.989 kg 89 kg Constitutional Constitutional: no acute distress and cooperative *Routine HEENT Exam Head: Present normocephalic *Routine Respiratory Exam Respiratory: Present rhonchi, normal respiratory effort
--- NOTE | 2023-05-31 10:43 | HMH.PHAINT1 ---
Pharmacy Intervention Comments: DISCHARGE MEDICATION COUNSELING PROVIDED. DISCUSSED STARTING THE FOLLOWING: -PROTONIX (FOR REFLUX/SOUR STOMACH, DAILY, TAKE 30 MINUTES BEFORE BREAKFAST, HEADACHE POSSIBLE) -DOXYCYCLINE (ANTIBIOTIC, TWICE DAILY, TAKE WITH FOOD, N/V/D, SUN SENSITIVITY POSSIBLE) -PREDNISONE (DAILY, TAKE WITH BREAKFAST, UPSET STOMACH, INSOMNIA POSSIBLE) PATIENT VERBALIZED NO QUESTIONS AT THIS TIME.
[2023-05-31 11:58] VITALS: PULSE 89
--- NOTE | 2023-05-31 13:02 | PC.NURSE ---
walking ra 87% 91% resting.
--- NOTE | 2023-05-31 13:42 | SW/DCPLANNER ---
Addendum entered by Destiney Hdez 05/31/23 14:01: Caro ackerman/ [facility] stated that portable O2 tank will be delivered to [facility] soon. Original Note: Patient information/order has been faxed to [facility] for home O2 (failed 6 minute walk test). I will follow up tyron/ [facility] once information/order is reviewed. Patient will discharge home today.
--- NOTE | 2023-06-01 16:24 | CARE MANAGER ---
Called and spoke with patient regarding recent discharge. Patient stated that she is doing well, no concerns at time of call. Discussed some issues that the patient had while in our facility and I will notify Nichelle Angel and Krystal Romero.
--- NOTE | 2023-06-03 15:52 | CARE MANAGER ---
CM received a phone call from [facility] today. Patient has refused a home concentrator and is planning to return the portable tank to [facility]. I called and spoke with patient who stated that her PCP is working on getting her a portable device that she can carry to work (maybe an [employer]). I explained that she should not be without supplemental oxygen and she stated that she would be fine, that she only needs it when she walks . I called to let [facility] know what I discussed with patient.
== END 2023-05-31 14:28 | disposition home or self-care (01) | DRG 189 ==
LOC: ER 22:24 → 2ND 22:30
PROVIDERS: Nurse Practitioner Family; Admitting Provider Internal Medicine Adolescent Medicine; Emergency Provider Student in an Organized Health Care Education/Training Program; PCP Nurse Practitioner; Visit Provider Internal Medicine Adolescent Medicine
DX: J96.01 Acute respiratory failure with hypoxia (principal); U07.1 COVID-19; J44.1 Chronic obstructive pulmonary disease with (acute) exacerbation; J96.02 Acute respiratory failure with hypercapnia; F17.210 Nicotine dependence, cigarettes, uncomplicated; E66.9 Obesity, unspecified; Z68.36 Body mass index [BMI] 36.0-36.9, adult; Z28.310 Unvaccinated for COVID-19; Z71.6 Tobacco abuse counseling
CPT/HCPCS: 36415; 71045; 80048; 80053; 82803; 83605; 83735; 83880; 84484; 85007; 85025; 87040; 87070; 87205; 87632; 87635; 87636; 93005; 94618; 94640; 94760; 99291; J0131; J0696; J3475

== ENCOUNTER → 2023-06-10 09:03 | Outpatient (CLI) | payer OTHER, SELFPAY ==
[2023-06-09 19:37] LABS: Anion Gap 15.7 mEq/L (5-15); Blood Urea Nitrogen 9 mg/dl (7-17); Carbon Dioxide 29 mmol/L (22.0-30.0); Chloride 97 mmol/L (98-107); Estimated Glomerular Filt Rate 102 ml/min (>60); GFR (African American) 124 ML/MIN (>60); Glucose 98 mg/dl (74-100); Potassium 4.7 mmoL/L (3.5-5.1); Sodium 137 mmol/L (136-145)
[2023-06-09 19:39] LABS: Hemoglobin A1C 5.4 % (4.0-6.0)
[2023-06-09 19:44] LABS: Basophils # 0.1 K/mm3 (0-0.2); Basophils % 0.3 % (0.1-2.0); Eosinophils # 0.1 K/mm3 (0.0-0.4); Eosinophils % 0.5 % (0.1-12.0); Hematocrit 45.2 % (37.0-47.0); Lymphocytes # 2.9 K/mm3 (0.7-4.5); Lymphocytes % 20.4 % (10-50); Mean Corpuscular HGB Conc 33.1 g/dL (31.8-35.4); Mean Corpuscular Volume 87.6 fl (81-99); Mean Platelet Volume 10.1 fl (7.4-10.4); Monocytes # 0.6 K/mm3 (0.1-1.0); Monocytes % 3.9 % (1.7-9.3); Neutrophils # 10.5 K/mm3 (1.8-7.8); Neutrophils % 74.8 % (37.0-80.0); Platelet Count 351 K/mm3 (142-424); Red Blood Count 5.17 M/mm3 (4.20-5.40); Red Cell Distribution Width 13.8 % (11.5-17.5); White Blood Count 14.1 K/mm3 (4.8-10.8)
[2023-06-09 20:08] LABS: Thyroid Stimulating Hormone 1.31 uIU/mL (0.465-4.68)
[2023-06-09 20:27] LABS: Vitamin B12 467 pg/mL (239-931)
== END ==
LOC: LAB.DROPOF 09:05
PROVIDERS: PCP Nurse Practitioner; Visit Provider Nurse Practitioner
DX: R42 Dizziness and giddiness (principal); R20.2 Paresthesia of skin
CPT/HCPCS: 80048; 82607; 83036; 84443; 85025

== ENCOUNTER 2024-02-13 10:46 | Emergency (ER) | payer OTHER, SELFPAY ==
[2024-02-13 12:10] VITALS: BP 152/81; PULSE 83; RESP 18; TEMP 36.8; O2SAT 96; BMI 36.6
--- NOTE | 2024-02-13 12:21 | EXP.UTC ---
Discharge Plan Disposition Patient Disposition: Home, Self-Care Condition: Good Prescriptions Prescriptions: No Action acetaminophen-codeine 300-30 mg tablet 1 tab PO TID PRN (Reason: pain) Qty: 20 0RF doxycycline hyclate 100 mg tablet 100 mg PO BID 10 Days Qty: 20 0RF methylprednisolone [Medrol (Gerald)] 4 mg tablets,dose pack See Rx Instructions PO PER PKG DIR Qty: 21 0RF Rx Instructions: PO PER PKG DIR ipratropium-albuterol 0.5 mg-3 mg(2.5 mg base)/3 mL Solution For Nebulization 3 ml INHALATION Q4HP PRN (Reason: Shortness Of Breath) albuterol sulfate [ProAir HFA] 90 mcg/actuation Hfa Aerosol Inhaler 1 inh INHALATION QIDP PRN (Reason: Shortness Of Breath) Anoro Ellipta 62.5-25 mcg/actuation Blister With Device 1 ea INHALATION DAILY pantoprazole 40 mg Tablet,Delayed Release (Dr/Ec) 40 mg PO DAILY Qty: 30 0RF Referrals Follow up/Referrals: Newton Chatterjee MD [Primary Care Provider] - See instructions Activity Restrictions/Add. Instructions Additional Instructions/Restrictions: Take Tylenol/Motrin as need for pain. Keep site clean and dry. Clinical Impressions Clinical Impression: Laceration of left knee without complication Instructions Patient Instructions: DI for Laceration Repair-Skin Glue Discharge ED Provider: Beverly Clement [facility] General Stated complaint: cut on left knee Time Seen by Provider: 02/13/24 12:21 History of Present Illness Provider Complaint: Pt reports that she was hanging wall paper and as she came down a ladder the gill box fixer came down and cut her left knee. She states that as the night went on she had a lot of pain in that knee. Related Data Home Medications Medication Instructions Recorded Confirmed albuterol sulfate 90 mcg/actuation 1 inh inhalation QIDP PRN 05/29/23 06/20/23 aerosol inhaler (ProAir HFA) Shortness Of Breath ipratropium 0.5 mg-albuterol 3 mg 3 ml inhalation Q4HP PRN Shortness 05/29/23 06/20/23 (2.5 mg base)/3 mL nebulization Of Breath soln umeclidinium 62.5 mcg-vilanterol 1 ea inhalation DAILY Breathing 05/29/23 06/20/23 25 mcg/actuation powdr for Problems inhalation (Anoro Ellipta) Previous Rx's Medication Instructions Recorded pantoprazole 40 mg tablet,delayed 40 mg PO DAILY #30 tabs 05/31/23 release acetaminophen 300 mg-codeine 30 mg 1 tab PO TID PRN pain #20 tabs 06/17/23 tablet Allergies Allergy/AdvReac Type Severity Reaction Status Date / Time No Known Allergies Allergy Verified 02/13/24 12:27 [facility] Disclaimer: The information contained in this section may have been updated after the patient was seen, as this information can be updated by other users. Medical History Chronic obstructive pulmonary disease Obesity (BMI 30-39.9) Surgical History History of cholecystectomy Family History Other Cancer Diabetes Hyperlipidemia Hypertension Social History Smoking Status: Current every day smoker tobacco type: cigarettes alcohol intake: never current occupational status: employed Travel in the last 8 weeks: None ROS Obtained: Yes All systems reviewed & no additional complaints except as documented Constitutional Constitutional: Reports system reviewed and no additional complaints, except as documented Eyes Eyes: Reports system reviewed and no additional complaints, except as documented ENT Ears, Nose, Mouth, and Throat: Reports system reviewed and no additional complaints, except as documented Cardiovascular Cardiovascular: Reports system reviewed and no additional complaints, except as documented Respiratory Respiratory: Reports system reviewed and no additional complaints, except as documented Gastrointestinal Gastrointestingal: Reports system reviewed and no additional complaints, except as documented Musculoskeletal Musculoskeletal: Reports system reviewed and no additional complaints, except as documented Comments: left knee pain Integumentary/Breasts Skin/Breast: Reports system reviewed and no additional complaints, except as documented, Reports as per HPI and Reports wounds Neurologic Neurologic: Reports system reviewed and no additional complaints, except as documented Endocrine Endocrine: Reports system reviewed and no additional complaints, except as documented Hematologic/Lymphatic Henatologic/Lymphatic: Reports system reviewed and no additional complaints, except as documented Allergic/Immunologic Allergic/Immunologic: Reports system reviewed and no additional complaints, except as documented Physical Exam General General appearance: alert and in no apparent distress Head Head exam: atraumatic and normocephalic Eye Eye exam: Present normal appearance and PERRL ENT ENT exam: Present normal exam and normal oropharynx Neck Neck exam: Present normal inspection Chest Chest inspection: Present normal inspection and symmetric chest wall rise Respiratory Respiratory exam: Present normal lung sounds bilaterally Cardiovascular Cardiovascular exam: Present regular rate, normal rhythm and normal heart sounds Abdominal Exam Abdominal exam: Present soft and normal bowel sounds Extremities Exam Extremities exam: Present normal inspection, full ROM and tenderness (left knee around laceration site.) Back Exam Back exam: Present normal inspection Neurological Exam Neurological exam: Present alert and oriented X3 Psychiatric Psychiatric exam: Present normal affect and normal mood Skin Skin exam: Present warm, dry and other Expanded Skin Exam Type of lesion: Present laceration Distribution: LLE Description: Present size (1/4 inch) and tenderness Comment: Site glued Medical Decision Making Bienvenido Inquiry Pt receiving controlled substance: No Bienvenido was queried for this patient: No Procedures Laceration Laceration 1: Site: lower extremity Side (If applicable): left Size (cm): 0.6 Description: linear and clean Depth: involves subcutaneous layer Skin layer closed with: Dermabond
[2024-02-13] MEDS: TET/DIPHTH/PERT-ADULT 0.5ML SYRINGE 0.5 ML IM (12:42)
[2024-02-13 12:50] VITALS: BP 152/81; PULSE 83; RESP 18; TEMP 36.8; O2SAT 96
== END 2024-02-13 12:50 | disposition home or self-care (01) ==
PROVIDERS: Emergency Provider Nurse Practitioner Family; PCP Family Medicine
DX: S81.012A Laceration without foreign body, left knee, initial encounter (principal); W26.8XXA Contact with other sharp object(s), not elsewhere classified, initial encounter; Z23 Encounter for immunization
CPT/HCPCS: 12001; 90471; 90715; 99213; 99214; G0463

== ENCOUNTER 2024-07-11 09:23 | Outpatient (CLI) | payer OTHER, SELFPAY ==
[2024-07-11 18:06] LABS: Basophils % 0.5 % (0.1-2.0); Eosinophils # 0.2 K/mm3 (0.0-0.4); Eosinophils % 2.6 % (0.1-12.0); Hematocrit 45.9 % (37.0-47.0); Hemoglobin 15.3 g/dL (12.2-16.2); Lymphocytes # 1.6 K/mm3 (0.7-4.5); Lymphocytes % 24.7 % (10-50); Mean Corpuscular HGB Conc 33.3 g/dL (31.8-35.4); Mean Corpuscular Hemoglobin 29.1 pg (27.0-31.2); Mean Corpuscular Volume 87.3 fl (81-99); Mean Platelet Volume 9.6 fl (7.4-10.4); Monocytes # 0.3 K/mm3 (0.1-1.0); Neutrophils # 4.5 K/mm3 (1.8-7.8); Neutrophils % 68.2 % (37.0-80.0); Platelet Count 285 K/mm3 (142-424); Red Blood Count 5.26 M/mm3 (4.20-5.40); Red Cell Distribution Width 14.1 % (11.5-17.5); White Blood Count 6.6 K/mm3 (4.8-10.8)
[2024-07-11 18:28] LABS: Alanine Aminotransferase 17 U/L (12-78); Albumin Level 4.2 g/dl (3.5-5.0); Albumin/Globulin Ratio 1.4 (1.1-1.8); Alkaline Phosphatase 118 U/L (38-126); Anion Gap 14.1 mEq/L (5-15); Aspartate Amino Transferase 21 U/L (14-36); Bilirubin,Total 0.5 mg/dl (0.2-1.3); Blood Urea Nitrogen 6 mg/dl (7-17); Calcium 9.1 mg/dl (8.4-10.2); Carbon Dioxide 27 mmol/L (22.0-30.0); Chloride 102 mmol/L (98-107); Estimated Glomerular Filt Rate 102 ml/min (>60); GFR (African American) 123 ML/MIN (>60); Glucose 95 mg/dl (74-100); Lipase 374 U/L (23-300); Potassium 4.1 mmoL/L (3.5-5.1); Sodium 139 mmol/L (136-145); Total Protein,Serum 7.2 g/dl (6.3-8.2)
[2024-07-11 20:00] LABS: Vitamin B12 413 pg/mL (239-931)
[2024-07-11 20:15] LABS: Hemoglobin A1C 5.5 % (4.0-6.0)
[2024-07-11 21:29] LABS: Thyroid Stimulating Hormone 2.57 uIU/mL (0.465-4.68)
== END 2024-07-11 23:59 | disposition home or self-care (01) ==
LOC: LAB.DROPOF 07-12 06:59
PROVIDERS: PCP Nurse Practitioner; Visit Provider Nurse Practitioner
DX: E66.9 Obesity, unspecified (principal); J44.1 Chronic obstructive pulmonary disease with (acute) exacerbation; Z13.220 Encounter for screening for lipoid disorders; Z13.1 Encounter for screening for diabetes mellitus; Z68.38 Body mass index [BMI] 38.0-38.9, adult; Z72.0 Tobacco use
CPT/HCPCS: 80050; 80053; 82607; 83036; 83690; 84443; 85025

== ENCOUNTER → 2024-07-12 10:40 | Outpatient (CLI) | payer OTHER, SELFPAY | LOC: SL 10:41 | PROVIDERS: PCP Nurse Practitioner Family; Visit Provider Nurse Practitioner Family | DX: G47.33 Obstructive sleep apnea (adult) (pediatric) (principal); R06.83 Snoring; R40.0 Somnolence; F17.200 Nicotine dependence, unspecified, uncomplicated | CPT/HCPCS: G0399 ==

== ENCOUNTER 2024-07-18 10:32 | Outpatient (CLI) | payer OTHER, SELFPAY ==
--- NOTE | 2024-07-18 10:37 | XR_ITS ---
FINAL REPORT CLINICAL HISTORY: COPD exacerbation, SOBOE COMPARISON: 07/12/2022 FINDINGS: PA and lateral views of the chest are obtained. The cardiac and mediastinal silhouettes are within normal limits. Lingular atelectasis is noted. The lungs are otherwise clear. There is no pleural effusion, pneumothorax, or acute osseous abnormality. IMPRESSION: No radiographic evidence of acute cardiac or pulmonary disease. Reviewed, Interpreted and Dictated by Nadira Moreira MD Transcribed by Portia Castañeda Authenticated and [facility]
--- NOTE | 2024-07-18 11:03 | ECG_ITS ---
APPROVED REPORT Exam: Resting ECG HR:84 bpm ECG Measurements Heart Rate 84 AXES NJ 155 P 70 QRSd 62 QRS 80 QT 337 T 52 QTc 378 Conclusion SINUS RHYTHM LOW QRS VOLTAGE IN PRECORDIAL LEADS [QRS DEFLECTION < 1.0 mV IN CHEST LEADS] BORDERLINE ECG UNCONFIRMED REPORT Electronically signed by : Elan Ley MD 07/20/2024 14:13:43
[2024-07-18 20:15] LABS: Chol/HDL Ratio 3.3 (1-3.5); Cholesterol 192 mg/dl (140-200); HDL Cholesterol 59 mg/dl (40-60); Lipase 191 U/L (23-300); Triglycerides 119 mg/dl (30-150); VLDL Cholesterol 24 mg/dL (0-40)
[2024-07-18 20:27] LABS: Direct LDL Cholesterol 118.63 mg/dL (100-129)
== END 2024-07-18 23:59 | disposition home or self-care (01) ==
LOC: RAD 10:34
PROVIDERS: PCP Nurse Practitioner; Visit Provider Nurse Practitioner
DX: J44.1 Chronic obstructive pulmonary disease with (acute) exacerbation (principal); R06.00 Dyspnea, unspecified; R74.8 Abnormal levels of other serum enzymes
CPT/HCPCS: 71046; 80061; 83690; 93005

== ENCOUNTER 2025-03-03 20:18 | Emergency (ER) | payer OTHER, SELFPAY ==
[2025-03-03] VITALS (7 sets, daily range): BP systolic 119–149; BP diastolic 54–91; PULSE 101–124; RESP 16–18; TEMP 36.4–37.3; O2SAT 88–99; BMI 36.6
--- NOTE | 2025-03-03 20:28 | XR_ITS ---
PROCEDURE INFORMATION: Exam: XR Chest Exam date and time: 03/03/2025 8:47 PM Age: 59 years old Clinical indication: Cough; Additional info: Shortness of breath, cough TECHNIQUE: Imaging protocol: Radiologic exam of the chest. Views: 2 views. COMPARISON: CR XR CHEST 2V 07/18/2024 10:47 AM FINDINGS: Lungs: Unremarkable. No consolidation. Pleural spaces: Unremarkable. No pleural effusion. No pneumothorax. Heart/Mediastinum: Unremarkable. No cardiomegaly. Bones/joints: Unremarkable. IMPRESSION: No acute findings. No infiltration identified.
--- NOTE | 2025-03-03 20:36 | ED_ITS ---
Discharge Plan Disposition Patient Disposition: Home, Self-Care Prescriptions Prescriptions: New azithromycin 250 mg tablet 250 mg PO DAILY 4 Days Qty: 4 0RF Rx Instructions: start on day 2 of therapy prednisone 20 mg tablet 40 mg PO DAILY 5 Days Qty: 10 0RF No Action Esme Thompson 100-62.5-25 mcg blister with device 1 inh inhalation DAILY 90 Days Qty: 3 1RF ipratropium-albuterol 0.5 mg-3 mg(2.5 mg base)/3 mL solution for nebulization 3 ml INHALATION Q4HP PRN (Reason: Shortness Of Breath) Qty: 180 3RF Referrals Follow up/Referrals: Annette Resendiz APRN [Primary Care Provider, Family Practice] - See instructions Activity Restrictions/Add. Instructions Additional Instructions/Restrictions: Follow-up with your primary care physician if symptoms do not improve. You are being prescribed azithromycin and steroids for treatment of your COPD exacerbation. You can call the hospital to get the results of your viral swab. If you develop any new or worsening symptoms, or if you become concerned for your health for any reason, return to the emergency department for evaluation. Clinical Impressions Clinical Impression: COPD exacerbation Print Language Print Language: Ugandan Discharge ED Provider: August Flores Adult HPI General Chief complaint: Shortness of Breath/Dyspnea Stated complaint: SOA,Cough Time Seen by Provider: 03/03/25 20:23 Mode of Arrival: Ambulatory Source of Information: Patient Description of Symptoms (Recalled from ER Triage Doc. by RN): pt presents to the Ed d/t cough going on a couple of days. pt states daughter was sick on thrusday and she has been having productive cough. pt states hx of copd and soa. pt is alert and ambulatory into room. History of Present Illness HPI narrative: Mariann Barr is a 59-year-old female with history of COPD not on oxygen who presents to the ED for complaints of shortness of breath. Patient states that she was exposed to her daughter who had a viral illness yesterday and then became more short of breath with a productive cough with yellow sputum that worsened today. She states that her chest feels tight. She tried at home nebulizer treatments without relief of her symptoms. She denies any history of heart failure, fever or abdominal pain. She states that this feels similar to her previous COPD exacerbation. She denies any history of heart attacks or heart failure. Related Data Previous Rx's ?Medication ?Instructions ?Recorded ipratropium 0.5 mg-albuterol 3 mg 3 ml inhalation Q4HP PRN Shortness 03/27/24 (2.5 mg base)/3 mL nebulization Of Breath #180 mL soln fluticasone fur. 100 mcg-umeclid 1 inh inhalation JEANCARLOS Y 90 days #3 07/11/24 62.5 mcg-vilant 25 mcg ea inhalat.powder (Trelegy Ellipta) azithromycin 250 mg tablet 250 mg PO DAILY 4 days #4 t abs 03/03/25 prednisone 20 mg tablet 40 mg (2 x 20 mg) PO DAILY 5 days 03/03/25 #10 tabs Allergies Allergy/AdvReac Type Severity Reaction Status Date / Time No Known Allergies Allergy Verified 01/30/25 10:15 [facility] Disclaimer: The information contained in this section may have been updated after the patient was seen, as this information can be updated by other users. Medical History MCKENNA (obstructive sleep apnea) Nocturnal hypoxia Elevated lipase Obesity (BMI 30-39.9) Chronic obstructive pulmonary disease Surgical History History of cholecystectomy Family History Other Cancer Diabetes Hyperlipidemia Hypertension Social History Smoking Status: Current every day smoker tobacco type: cigarettes packs per day: 1 alcohol intake: never substance use type: denies use current occupational status: employed Travel in the last 8 weeks?: None household members: spouse housing: house marital status: number of children: 3 Have you lived/traveled outside US in past 30 days?: No Contact w/someone who lives/traveled outside US past 30 days?: No Exposure to someone with infectious disease in past 14 days?: No Do you have a fever (greater than 100.4 F or 38 C)?: No Have you tested positive for COVID-19?: No Exposed to someone with COVID-19 in past 14 days?: No Do you have a sore throat?: No Do you have a cough?: No Do you have any weakness?: No Do you have any diarrhea?: No Are you experiencing any unusual bleeding?: No Do you have any muscle aches/pain?: No Do you have any abdominal pain?: No Are you experiencing loss of taste or smell?: No Other Medical History Have you received the Flu Vaccine for this season: No Have you received the Pneumonia Vaccine: No ROS Obtained: Yes Systems reviewed as appropriate & no additional complaints except as documented Physical Exam General General appearance: alert Comment: Mild to moderate respiratory distress. Head Head exam: atraumatic Eye Eye exam: Present normal appearance ENT ENT exam: Present normal external ear exam Neck Neck exam: Present full ROM Chest Chest inspection: Present symmetric chest wall rise Respiratory Respiratory exam: Present respiratory distress (increased work with breathing, speaking in shortened sentences); Absent normal lung sounds bilaterally (Diminished breath sounds bilaterally with mild end expiratory wheezing) Cardiovascular Cardiovascular exam: Present normal rhythm and tachycardia Abdominal Exam Abdominal exam: Present soft; Absent tenderness or guarding Extremities Exam Extremities exam: Present normal inspection Back Exam Back exam: Present normal inspection Neurological Exam Neurological exam: Present alert and oriented X3 Psychiatric Psychiatric exam: Present normal affect Skin Skin exam: Present warm and dry Medical Decision Making Medical Records Screening: Per USPSTF and CDC recommendations, given the prevalence of disease in our region, it is our hospital?s policy to screen for HIV and viral Hepatitis for all patients aged 18 and over and those with ongoing risk factors. Bienvenido Inquiry Pt receiving controlled substance: No Vital Signs: 03/03/25 20:29 03/03/25 21:30 03/03/25 22:00 Temperature 99.1 F Temperature Source Oral Pulse Rate 106 H 105 H Pulse Rate [Right Radial] 124 H Respiratory Rate 18 16 Blood Pressure 119/54 L 145/75 H Blood Pressure [Right Arm] 149/87 H Blood Pressure Mean 75 86 Blood Pressure Mean [Right Arm] 107 Blood Pressure Position Blood Pressure Position [Right Arm] Supine 02 Sat by Pulse Oximetry 88 L 95 94 L Oxygen Delivery Method Room Air 03/03/25 22:14 03/03/25 22:30 03/03/25 23:00 Temperature 97.6 F Temperature Source Pulse Rate 117 H 105 H 101 H Pulse Rate [Right Radial] Respiratory Rate 16 16 Blood Pressure 132/70 149/91 H Blood Pressure [Right Arm] Blood Pressure Mean 94 105 Blood Pressure Mean [Right Arm] Blood Pressure Position Blood Pressure Position [Right Arm] 02 Sat by Pulse Oximetry 94 L 94 L Oxygen Delivery Method 03/03/25 23:18 Temperature 97.6 F Temperature Source Oral Pulse Rate 101 H Pulse Rate [Right Radial] Respiratory Rate 16 Blood Pressure 149/91 H Blood Pressure [Right Arm] Blood Pressure Mean Blood Pressure Mean [Right Arm] Blood Pressure Position Supine Blood Pressure Position [Right Arm] 02 Sat by Pulse Oximetry Oxygen Delivery Method Room Air Lab Data Lab Results 03/03/25 20:28: VBG pH 7.30 L, VBG pCO2 57.3 H, VBG pO2 33.5, VBG HCO3 27.2, VBG Total CO2 29.0 H, VBG O2 Saturation 63.2, VBG Base Excess 0.7, VBG Lactic Acid 2.6 H 03/03/25 20:52: WBC 15.8 H, RBC 5.13, Hgb 14.2, Hct 44.3, MCV 86.4, MCH 27.7, MCHC 32.1, RDW 13.2, Plt Count 312, MPV 9.9, Neut % (Auto) 85.8 H, Lymph % (Auto) 9.1 L, [place] % (Auto) 4.1, Eos % (Auto) 0.3, Baso % (Auto) 0.3, Neut # (Auto) 13.6 H, Lymph # (Auto) 1.4, [place] # (Auto) 0.7, Eos # (Auto) 0.1, Baso # (Auto) 0.0, Sodium 137, Potassium 3.7, Chloride 93 L, Carbon Dioxide 31 H, Anion Gap 16.7 H, BUN 6 L, Creatinine 0.70, Estimated Creat Clear 85, Estimated GFR 85, Est GFR ( Amer) 103, Glucose 117 H, Calcium 9.3, Total Bilirubin 1.1, AST 29, ALT 25, Alkaline Phosphatase 124, Troponin I < 0.01, NT-Pro-B Natriuret Pep 143 H, Total Protein 8.7 H, Albumin 4.5, Globulin 4.2 H, Albumin/Globulin Ratio 1.1 03/03/25 22:41: Chlamy pneumoniae PCR Not detected, Adenovirus (PCR) Not detected, B. pertussis DNA (PCR) Not detected, Coronavirus OC43 (PCR) Not detected, Coronavirus HKU1 (PCR) Not detected, Coronavirus 229E (PCR) Not detected, SARS-CoV-2 (PCR) Not detected, Coronavirus NL63 (PCR) Not detected, Human Metapneumovir PCR Not detected, Influenza A (H1) PCR Not detected, Influ A (H1N1/09) PCR Not detected, Influenza A (H3) PCR Not detected, Influenza Type A (PCR) Not detected, Influenza Type B (PCR) Not detected, M. pneumoniae (PCR) Not detected, Parainfluenza 1 (PCR) Not detected, Parainfluenza 2 (PCR) Not detected, Parainfluenza 3 (PCR) Not detected, Parainfluenza 4 (PCR) Not detected, RSV (PCR) Not detected, Entero/Rhino (PCR) Not detected 03/03/25 20:52 03/03/25 20:52 Orders (Tests/Meds): ED MEDICATIONS Discontinued Medications Generic Name Dose Route Start Last Admin Trade Name Freq PRN Reason Stop Dose Admin Albuterol/Ipratropium 9 ml 03/03/25 20:28 03/03/25 20:50 Ipratropium/Albuterol 3 Ml Neb IH 03/03/25 20:29 9 ml ONCE ONE Administration Magnesium Sulfate 2 gm in 50 mls @ 50 mls/hr 03/03/25 20:28 03/03/25 20:40 Magnesium Sulfate 2gm/50ml Premix IV 03/03/25 21:27 50 mls/hr ONCE ONE Administration Azithromycin 500 mg/ Sodium 250 mls @ 250 mls/hr 03/03/25 20:30 03/03/25 20:39 Chloride IV 03/03/25 20:31 250 mls/hr ONCE ONE Administration Methylprednisolone Sodium Succinate 125 mg 03/03/25 20:28 03/03/25 20:39 Methylprednisolone Sod Succ 125mg Vial IV 03/03/25 20:29 125 mg ONCE ONE Administration ORDERS Category Date Time Status CXR 2 view (NOT portable) [XR chest 2V] Stat Exams 03/03/25 20:28 Completed BNP [NT Pro Brain Natriuretic Pep.] Stat Lab 03/03/25 20:52 Completed CBC w/Auto Diff [Complete Blood Count Auto Diff] Stat Lab 03/03/25 20:52 Completed CMP [Comprehensive Metabolic Panel] Stat Lab 03/03/25 20:52 Completed Full Resp Panel w/COVID ([facility]) Routine Lab 03/03/25 22:41 Completed Troponin I Stat Lab 03/03/25 20:52 Completed VBG [Venous Blood Gas] Stat RT 03/03/25 20:28 Completed EKG Request [ECG Request] Stat Y 03/03/25 20:35 Ordered Medical Decision Narrative: Mariann Barr is a 59-year-old female with history of COPD not on oxygen who presents to the ED for complaints of shortness of breath. Patient states that she was exposed to her daughter who had a viral illness yesterday and then became more short of breath with a productive cough with yellow sputum that worsened today. She states that her chest feels tight. She tried at home nebulizer treatments without relief of her symptoms. She denies any history of heart failure, fever or abdominal pain. She states that this feels similar to her previous COPD exacerbation. She denies any history of heart attacks or heart failure. On arrival, patient is tachycardic with a heart rate of 124, mildly hypertensive, oxygen 88% on room air and was placed on 2 L nasal cannula upon arrival with improvement to 95% SpO2. Afebrile. Physical exam, as stated above, revealed an overall well-appearing female in mild to moderate respiratory distress, speaking in shortened sentences. She has an active cough. Cardiopulmonary exam revealed tachycardia but no murmurs. She has diminished breath sounds bilaterally and some mild end expiratory wheezing. Abdomen is soft, nontender nondistended. She does not have any significant peripheral edema. She is mentating appropriately. Differential diagnosis includes, but is not limited to: COPD exacerbation, pneumonia, pneumothorax, viral respiratory illness, ACS. Patient has not had any hemoptysis, leg swelling or history of DVT and there is low concern for pulmonary embolism at this time. Patient states that her symptomatology is consistent with previous COPD exacerbations. Will administer 125 mg IV Solu- Medrol, continuous DuoNeb treatment (9 mL), and 2 g IV magnesium sulfate over 20 minutes. Workup in the emergency department included: Chest x-ray, CBC, VBG with lactate, CMP, troponin, BNP, full respiratory panel. Chest x-ray interpreted by me personally. No focal consolidation, pneumothorax, widening of the mediastinum. Cardiac silhouette does not appear enlarged. See final radiology report for details. Laboratory studies show leukocytosis with left shift with white blood cell count of 15.8 and 85.8% neutrophils. pH mildly low at 7.3 with mild hypercapnia with pCO2 57.3. Lactic acid mildly elevated at 2.6. Patient's anion gap is mildly elevated at 16.7 (likely related to patient's mildly elevated lactic acid)., Dioxide mildly elevated at 31. No IZA. Glucose normal at 117. No troponin less than 0.01. BNP very mildly elevated at 143 but no evidence of volume overload on chest x-ray or physical exam. Viral respiratory panel pending at this time (machine that runs test is currently not working). EKG interpreted by me personally. Sinus tachycardia with ventricular rate of [address] elevation or depression. QTc normal at 386. No ischemic changes. On reassessment, patient reports objective improvement in her ease of breathing and no longer has chest tightness. On lung exam, she has much improved breath sounds without wheezing. She is no longer on oxygen and maintaining oxygen saturations above 92% SpO2. She is eager to get home at this time. While sleeping, her heart rate was within normal limits but came very slightly tachycardic with awakening. Is felt that her symptomatology is still best explained by COPD exacerbation and will improve over time with course of prednisone and azithromycin for increased cough production. She is in agreement with this plan. She was instructed to follow with her primary care physician if symptoms do not improve. She was encouraged to follow-up the results of her viral panel on [facility] or to call the hospital for the results as the results will not private branch exchange service advisor at this time. Strict return precautions were given. All questions were answered. She demonstrated understanding and was in agreement this plan. She was then discharged from the emergency department in stable condition. Critical Care Critical Care Time Critical Care Time: Yes Attestation: On 03/03/25, the high probability of a clinically significant, sudden or life threatening deterioration of the following system(s) required my full and direct attention, intervention and personal management. The time I documented below is in addition to time spent performing reported procedures but includes the following listed in this critical care notation. Total Time Total Critical Care Time: 35
--- OUTSIDE RECORDS SUMMARY | 2025-03-03 20:38 | XMS_ITS | Clinical Summary ---
Author Organization [facility] Address [address] [place] [address] Phone Care Team Providers Care Driver'S Education Instructor Name Role Phone Unavailable Primary Care Provider Unavailabl e Allergies No known active allergies Medical History Medical History Date Comments Anxiety COPD (chronic obstructive pulmonary disease) (HC C) Social History Tobacco Use Types Packs/Day Years Used Date Smoking Tobacco: Every Day Cigarettes Alcohol Use Standard Drinks/Week Comments No 0 (1 standard drink = 0.6 oz pur e alcohol) Comments No Sex and Gender Information Value Date Recorded Sex Assigned at Not on file Legal Sex Female 7:02 AM EDT Gender Identity Not on file Sexual Orientation Not on file Obstetrics History Last Filed Vital Signs Vital Sign Reading Time Taken Comments Blood Pressure 127/78 08/04/2012 3:23 PM EST Pulse 90 08/04/2012 3:23 PM EST Temperature 36.4 C (97.5 F) 08/04/2012 3:23 PM EST Respiratory Rate 20 08/04/2012 3:23 PM EST Oxygen Saturation 99% 08/04/2012 3:23 PM EST Inhaled Oxygen Concentration - - Weight 81.6 kg (180 lb) 08/04/2012 3:23 PM EST Height 154.9 cm (5' 1 ) 08/04/2012 3:23 PM EST Body Mass Index 34.01 08/04/2012 3:23 PM EST Plan of Treatment Health Maintenance Due Date Last Done Comments Annual Wellness Exam 11/29/1966 Hepatitis C Screening 11/29/1981 DTaP/TDaP/Td (1 - Tdap) 11/29/1982 Cervical Cancer Screening 11/29/1984 Pap Smear 11/29/1984 HPV/Pap Cotest 11/29/1993 Breast Cancer Screening 12/24/2007 12/24/19, 12/29/2004, 12/24/2004 Cologuard 11/29/2008 Colon Cancer Screening 11/29/2008 Colonoscopy 11/29/2008 FIT 11/29/2008 Sigmoidoscopy 11/29/2008 Virtual Colonography 11/29/2008 Pneumococcal Vaccine 50+ (1 of 1 - PCV) 11/29/2013 Zoster (1 of 2) 11/29/2013 COVID-19 Vaccine (1 - 2023-2 5 season) 2024 Influenza Vaccine (#1) 2025 Hepatitis B Vaccine Aged Out No longe r eligible based on patient's age to complete this topic Meningococcal B Vaccine Aged Out No l onger eligible based on patient's age to complete this topic Procedures Procedure Name Priority Date/Time Associated Diagnosis Comments MV MAMMO SCREEN W/CAD PANEL Routine 12/23/2005 2:00 PM EDT from Last 3 Months or Most Recently Relevant to Health Maintenance Results * MM MAMMO SCREEN W/CAD PANEL (12/23/2005 2:00 PM EDT) Anatomical Region Laterality Modality Other 12/23/2005 2:00 PM EDT Narrative 12/26/2005 8:25 AM EDT Procedure-MV MAMMO SCREEN W/CAD PANEL Mobile Screening Mammogram Bilateral CC and MLO view(s) were taken. Prior study comparison- December 24, 2004, bilateral mobile screening mammogram. There are scattered fibroglandular densities. No significant changes when compared with prior studies. IMPRESSION- No radiographic evidence of malignancy ([id number]) RECOMMENDATION- Routine screening mammogram in 1 year. * The patient with a palpable abnormality, unexplained by breast imaging, should be managed on clinical basis by the attending physician. * Breast imaging has a false negative rate of 15%. * The patient was notified by mail of the results of this examination. The mammogram was reviewed by a Radiologist and CAD. Septic Tank Servicer- MIRELA LEMUS Reading Radiologist- ELAN MELENDEZ MD Released Date Time- 12/26/05 2133 Procedure Note Elan Melendez - 10/29/2009 Procedure-MV MAMMO SCREEN W/CAD PANEL Mobile Screening Mammogram Bilateral CC and MLO view(s) were taken. Prior study comparison- December 24, 2004, bilateral mobile screening mammogram. There are scattered fibroglandular densities. No significant changes when compared with prior studies. IMPRESSION- No radiographic evidence of malignancy ([id number]) RECOMMENDATION- Routine screening mammogram in 1 year. * The patient with a palpable abnormality, unexplained by breast imaging, should be managed on clinical basis by the attending physician. * Breast imaging has a false negative rate of 15%. * The patient was notified by mail of the results of this examination. The mammogram was reviewed by a Radiologist and CAD. Septic Tank Servicer- MIRELA Patel Radiologist- ELAN MELENDEZ MD Released Date Time- 12/26/05 2133 [facility] Justino Perez [facility] HISTORICAL Fin al Result from Last 3 Months or Most Recently Relevant to Health Maintenance Insurance [employer]
[2025-03-03] MEDS: METHYLPREDNISOLONE SOD SUCC 125MG VIAL 125 MG IV (20:39)
[2025-03-03] MEDS: AZITHROMYCIN 500 MG in 0.9 % SODIUM CHLORIDE 250 ML 250 MG IV (20:39)
[2025-03-03] MEDS: MAGNESIUM SULFATE IN WATER 2 GM/50 ML PIGGYBACK IV (20:40)
[2025-03-03] MEDS: IPRATROPIUM/ALBUTEROL 3 ML NEB 9 ML IH (20:50)
[2025-03-03 21:01] LABS: VBG HCO3 27.2 mmol/L (23-30); VBG PH 7.30 mmol/L (7.31-7.41); VBG PO2 33.5 mmol/L (28-40)
[2025-03-03 21:03] LABS: Lactate Venous 2.6 mmol/L (0.4-2.0); VBG PCO2 57.3 mmol/L (35-51)
[2025-03-03 21:07] LABS: Hematocrit 44.3 % (37.0-47.0); Hemoglobin 14.2 g/dL (12.2-16.2); Immature Granulocytes % 0.4 %; Mean Corpuscular HGB Conc 32.1 g/dL (31.8-35.4); Mean Corpuscular Hemoglobin 27.7 pg (27.0-31.2); Mean Corpuscular Volume 86.4 fl (81-99); Nucleated Red Blood Cells % 0 %; Platelet Count 312 K/mm3 (142-424); Red Blood Count 5.13 M/mm3 (4.20-5.40); Red Cell Distribution Width-SD 41.5 fL; White Blood Count 15.8 K/mm3 (4.8-10.8)
[2025-03-03 21:19] LABS: Albumin Level 4.5 g/dl (3.5-5.0); Chloride 93 mmol/L (98-107); Potassium 3.7 mmoL/L (3.5-5.1); Sodium 137 mmol/L (136-145)
[2025-03-03 21:22] LABS: Alanine Aminotransferase 25 U/L (12-78); Albumin/Globulin Ratio 1.1 (1.1-1.8); Alkaline Phosphatase 124 U/L (38-126); Anion Gap 16.7 mEq/L (5-15); Aspartate Amino Transferase 29 U/L (14-36); Bilirubin,Total 1.1 mg/dl (0.2-1.3); Blood Urea Nitrogen 6 mg/dl (7-17); Carbon Dioxide 31 mmol/L (22.0-30.0); Creatinine Clearance Estimated 85 mL/min (50-200); Creatinine,Serum 0.70 mg/dl (0.52-1.04); Estimated Glomerular Filt Rate 85 ml/min (>60); GFR (African American) 103 ML/MIN (>60); Globulin 4.2 g/dL (1.3-3.2); Total Protein,Serum 8.7 g/dl (6.3-8.2)
[2025-03-03 21:23] LABS: Calcium 9.3 mg/dl (8.4-10.2); Glucose 117 mg/dl (74-100)
[2025-03-03 21:32] LABS: NT Pro Brain Natriuretic Pep. 143 pg/mL (0-125)
[2025-03-03 21:38] LABS: Troponin I < 0.01 ng/ml (0.00-0.034)
--- NOTE | 2025-03-03 22:39 | ECG_ITS ---
APPROVED REPORT Exam: Resting ECG HR:106 bpm ECG Measurements Heart Rate 106 AXES NC 161 P 71 QRSd 83 QRS 67 QT 324 T 69 QTc 386 Conclusion SINUS TACHYCARDIA NONSPECIFIC T-WAVE ABNORMALITY ABNORMAL RHYTHM ECG UNCONFIRMED REPORT Sinus tachycardia with ventricular rate of [address] elevation or depression. PAC noted Electronically signed by : PAVAN SANCHEZ, 03/04/2025 11:07:09
[2025-03-03 22:50] LABS: Adenovirus,PCR Not Detected (NotDetected); Chlamydophila Pneumoniae, PCR Not Detected (NotDetected); Coronavirus 19, PCR Not Detected (NotDetected); Coronovirus HKU1,PCR Not Detected (NotDetected); Influenza A, PCR Not Detected (NotDetected); Influenza AH1, 2009 Not Detected (NotDetected); Influenza AH1, PCR Not Detected (NotDetected); Influenza AH3,PCR Not Detected (NotDetected); Influenza B, PCR Not Detected (NotDetected); Mycoplasma Pneumoniae, PCR Not Detected (NotDetected); Parainfluenza 1, PCR Not Detected (NotDetected); Parainfluenza 2, PCR Not Detected (NotDetected); Parainfluenza 3, PCR Not Detected (NotDetected); Parainfluenza 4, PCR Not Detected (NotDetected)
[2025-03-04 01:02] LABS: Reflex Lactic Add Lactic Reflex
== END 2025-03-03 23:22 | disposition home or self-care (01) ==
PROVIDERS: Emergency Provider Student in an Organized Health Care Education/Training Program; PCP Nurse Practitioner
DX: J44.1 Chronic obstructive pulmonary disease with (acute) exacerbation (principal); R07.89 Other chest pain; J43.9 Emphysema, unspecified; G47.33 Obstructive sleep apnea (adult) (pediatric); F17.210 Nicotine dependence, cigarettes, uncomplicated
CPT/HCPCS: 0223U; 71046; 80053; 82803; 83880; 84484; 85025; 87633; 93005; 96365; 96375; 99291; J0456; J2919; J3475; J7050

== ENCOUNTER 2025-03-05 15:49 | Inpatient (IN) | payer OTHER, SELFPAY ==
[2025-03-05] VITALS (10 sets, daily range): BP systolic 125–149; BP diastolic 70–79; PULSE 99–104; RESP 16–20; TEMP 36.4–37; O2SAT 92–96; BMI 36.6; BMI 36.8
--- NOTE | 2025-03-05 17:35 | ECG_ITS ---
APPROVED REPORT Exam: Resting ECG HR:102 bpm ECG Measurements Heart Rate 102 AXES ME 155 P 74 QRSd 85 QRS 74 QT 330 T 73 QTc 389 Conclusion SINUS TACHYCARDIA ABNORMAL RHYTHM ECG UNCONFIRMED REPORT Electronically signed by : Anoop Flowers, 03/05/2025 23:29:03
--- OUTSIDE RECORDS SUMMARY | 2025-03-05 17:35 | XMS_ITS | Clinical Summary ---
Author Organization [facility] Address [address] [place] [address] Phone Care Team Providers Care Quarter Backer Name Role Phone Unavailable Primary Care Provider [...] studies. IMPRESSION- No radiographic evidence of malignancy ([id number]) RECOMMENDATION- Routine screening mammogram in 1 year. * The patient with a palpable abnormality, unexplained by breast imaging, should be managed on clinical basis by the attending physician. * Breast imaging has a false negative rate of 15%. * The patient was notified by mail of the results of this examination. The mammogram was reviewed by a Radiologist and CAD. Bank Teller Machine Mechanic- MIRELA LEMUS Reading Radiologist- ELAN MELENDEZ MD Released Date Time- 12/26/05 2133 Procedure Note Elan Melendez - 10/29/2009 Procedure-MV MAMMO SCREEN W/CAD PANEL Mobile Screening Mammogram Bilateral CC and MLO view(s) were taken. Prior study comparison- December 24, 2004, bilateral mobile screening mammogram. There are scattered fibroglandular densities. No significant changes when compared with prior studies. IMPRESSION- No radiographic evidence of malignancy ([id number]) RECOMMENDATION- Routine screening mammogram in 1 year. * The patient with a palpable abnormality, unexplained by breast imaging, should be managed on clinical basis by the attending physician. * Breast imaging has a false negative rate of 15%. * The patient was notified by mail of the results of this examination. The mammogram was reviewed by a Radiologist and CAD. Bank Teller Machine Mechanic- MIRELA Patel Radiologist- ELAN MELENDEZ MD Released Date Time- 12/26/05 2133 [facility] Justino Perez [facility] RAD HISTORICAL Fin al Result from Last 3 Months or Most Recently Relevant to Health Maintenance Insurance [employer]
--- NOTE | 2025-03-05 17:50 | ED_ITS ---
<Statement entered by Cheli Flowers MD - 03/05/25 23:24> I was consulted by the RAIZA, and we discussed the complexity of the problems being addressed. I approved the treatment and management plan for this patient's care in the emergency department, thus performing a substantive portion of the medical decision making. Cheli Flowers MD, BRENDA, FACEP Discharge Plan Disposition Chief Complaint: Shortness of Breath/Dyspnea Prescriptions Prescriptions: No Action Trelegy Ellipta 100-62.5-25 mcg blister with device 1 inh inhalation DAILY 90 Days Qty: 3 1RF ipratropium-albuterol 0.5 mg-3 mg(2.5 mg base)/3 mL solution for nebulization 3 ml INHALATION Q4HP PRN (Reason: Shortness Of Breath) Qty: 180 3RF azithromycin 250 mg tablet 250 mg PO DAILY 4 Days Qty: 4 0RF Rx Instructions: start on day 2 of therapy prednisone 20 mg tablet 40 mg PO DAILY 5 Days Qty: 10 0RF Referrals Follow up/Referrals: Provider,Referral, [Primary Care Provider, Medical] - See instructions Print Language Print Language: Moldovan Discharge ED Provider: Cheli Flowers HPI <SERAFIN Quintero - Last Filed: 03/05/25 19:23> General Chief Complaint: Shortness of Breath/Dyspnea Stated Complaint: harish PHILIPPE is low Time Seen by Provider: 03/05/25 17:38 Mode of Arrival: Wheelchair Source of Information: Patient Description of Symptoms (Recalled from ER Triage Doc. by RN): Patient states she has been feeling short of breath for 3 days. States she was seen in the ER on Tuesday03/03/25 and had testing done and was given presciptions for presnisone, breathing treatments and antibiotics. Patient states she saw Dr. Russell today for follow up and was sent to the ER because she isn't feeling any better. History of Present Illness HPI narrative: 59-year-old female presents to the emergency department with productive cough, shortness of air for the last 2 days, patient was recently seen in the emergency department on 03/03/2025 for similar complaint, treated/diagnosed with COPD exacerbation, was treated with DuoNebs, IV steroids, was sent home with p.o. azithromycin and p.o. prednisone he been taking as prescribed, patient states she has had little no relief of her symptomatology, and complains of more dyspnea on exertion today with her oxygen saturation dropping into the 80s , according to patient and at the bedside, patient is not currently on any at home oxygen therapy. Patient admits to recent sick contact on 03/02/2025, with a nonspecific viral illness, denies any fever or chills, denies any overt chest pain, denies any abdominal pain, does have some nausea at times, denies any constipation diarrhea no urinary type symptomatology, patient is a current everyday smoker, denies any alcohol or drug use. Patient was seen by her PCP today, who advised her to come to the emergency department to be admitted . Other past medical history consistent with COPD, MCKENNA, obesity. Related Data Previous Rx's ?Medication ?Instructions ?Recorded ipratropium 0.5 mg-albuterol 3 mg 3 ml inhalation Q4HP PRN Shortness 03/27/24 (2.5 mg base)/3 mL nebulization Of Breath #180 mL soln fluticasone fur. 100 mcg-umeclid 1 inh inhalation JEANCARLOS Y 90 days #3 07/11/24 62.5 mcg-vilant 25 mcg ea inhalat.powder (Trelegy Ellipta) azithromycin 250 mg tablet 250 mg PO DAILY 4 days #4 t abs 03/03/25 prednisone 20 mg tablet 40 mg (2 x 20 mg) PO DAILY 5 days 03/03/25 #10 tabs Allergies Allergy/AdvReac Type Severity Reaction Status Date / Time No Known Allergies Allergy Verified 03/05/25 14:21 [facility] <SERAFIN Quintero - Last Filed: 03/05/25 19:23> [facility] Disclaimer: The information contained in this section may have been updated after the patient was seen, as this information can be updated by other users. Medical History MCKENNA (obstructive sleep apnea) Nocturnal hypoxia Elevated lipase Obesity (BMI 30-39.9) Chronic obstructive pulmonary disease Surgical History History of cholecystectomy Family History Other Cancer Diabetes Hyperlipidemia Hypertension Social History Smoking Status: Current every day smoker tobacco type: cigarettes packs per day: 1 alcohol intake: never substance use type: denies use current occupational status: employed Travel in the last 8 weeks?: None household members: spouse housing: house marital status: number of children: 3 Have you lived/traveled outside US in past 30 days?: No Contact w/someone who lives/traveled outside US past 30 days?: No Exposure to someone with infectious disease in past 14 days?: No Do you have a fever (greater than 100.4 F or 38 C)?: No Have you tested positive for COVID-19?: No Exposed to someone with COVID-19 in past 14 days?: No Do you have a sore throat?: No Do you have a cough?: No Do you have any weakness?: No Do you have any diarrhea?: No Are you experiencing any unusual bleeding?: No Do you have any muscle aches/pain?: No Do you have any abdominal pain?: No Are you experiencing loss of taste or smell?: No Other Medical History Have you received the Flu Vaccine for this season: No Have you received the Pneumonia Vaccine: No <SERAFIN Quintero - Last Filed: 03/05/25 19:23> ROS Obtained: Yes All systems reviewed & no additional complaints except as documented Physical Exam <SERAFIN Quintero - Last Filed: 03/05/25 19:23> General General appearance: alert and in no apparent distress Head Head exam: atraumatic and normocephalic Eye Eye exam: Present PERRL and EOMI ENT ENT exam: Present mucous membranes moist Neck Neck exam: Present normal inspection Chest Chest inspection: Present normal inspection and symmetric chest wall rise Respiratory Respiratory exam: Present wheezes and other (Mild diffuse wheezes heard bilaterally, right worse than left, there are moderate wheezes and some crackles/Rales auscultated); Absent normal lung sounds bilaterally, respiratory distress or accessory muscle use Cardiovascular Cardiovascular exam: Present regular rate and normal rhythm Abdominal Exam Abdominal exam: Present soft; Absent tenderness, guarding, rebound or rigidity Extremities Exam Extremities exam: Present normal inspection Neurological Exam Neurological exam: Present alert and oriented X3 Psychiatric Psychiatric exam: Present normal affect Skin Skin exam: Present warm and dry HEART Score <SERAFIN Quintero - Last Filed: 03/05/25 19:23> HEART Score HEART Score assessment performed?: No Critical Care <SERAFIN Quintero - Last Filed: 03/05/25 19:23> Critical Care Time Critical Care Time: No <Cheli Flowers MD - Last Filed: 03/05/25 19:34> Critical Care Time Critical Care Time: Yes Attestation: On 03/05/25, the high probability of a clinically significant, sudden or life threatening deterioration of the following system(s) required my full and direct attention, intervention and personal management. The time I documented below is in addition to time spent performing reported procedures but includes the following listed in this critical care notation. Total Time Total Critical Care Time: 35 Medical Decision Making <SERAFIN Quintero - Last Filed: 03/05/25 19:23> Medical Records Medical records reviewed: Yes I reviewed the patient's medical records. Bienvenido Inquiry Pt receiving controlled substance: No Bienvenido was queried for this patient: No Vital Signs Vital Signs: 03/05/25 17:35 Temperature 98.6 F Temperature Source Oral Pulse Rate [Right Brachial] 103 H Respiratory Rate 16 Blood Pressure [Right Arm] 137/70 Blood Pressure Mean [Right Arm] 92 Blood Pressure Source [Right Arm] Automatic Cuff Blood Pressure Position [Right Arm] Sitting 02 Sat by Pulse Oximetry 92 L Oxygen Delivery Method Room Air Lab Data Lab results reviewed: Yes I reviewed the patient's lab results. Labs: Lab Results 03/05/25 17:51: VBG pH 7.36, VBG pCO2 54.3 H, VBG pO2 28.1, VBG HCO3 30.1 H, VBG Total CO2 31.8 H, VBG O2 Saturation 53.6, VBG Base Excess 4.7 H, VBG Lactic Acid 2.6 H 03/05/25 17:55: WBC 15.8 H, RBC 4.80, Hgb 13.7, Hct 41.7, MCV 86.9, MCH 28.5, MCHC 32.9, RDW 13.3, Plt Count 366, MPV 9.9, Neut % (Auto) 90.8 H, Lymph % (Auto) 5.8 L, Petroleum % (Auto) 2.7, Eos % (Auto) 0.0 L, Baso % (Auto) 0.1, Neut # (Auto) 14.4 H, Lymph # (Auto) 0.9, Petroleum # (Auto) 0.4, Eos # (Auto) 0.0, Baso # (Auto) 0.0, Sodium 138, Potassium 4.3, Chloride 92 L, Carbon Dioxide 31 H, Anion Gap 19.3 H, BUN 9 D, Creatinine 0.60, Estimated Creat Clear 85, Estimated GFR 102, Est GFR ( Amer) 123, Glucose 138 H, Calcium 9.2, Magnesium 2.3, Total Bilirubin 0.5, AST 23, ALT 22, Alkaline Phosphatase 107, Troponin I < 0.01, NT-Pro-B Natriuret Pep 324 H, Total Protein 8.3 H, Albumin 4.4, Globulin 3.9 H, Albumin/Globulin Ratio 1.1 03/05/25 17:55 03/05/25 17:55 Response Orders (Tests/Meds): ED MEDICATIONS Generic Name Dose Route Start Last Admin Trade Name Freq PRN Reason Stop Dose Admin Ceftriaxone Sodium 1 gm/ 50 mls @ 100 mls/hr 03/05/25 19:16 Sodium Chloride IV 03/05/25 19:45 ONCE ONE Discontinued Medications Generic Name Dose Route Start Last Admin Trade Name Freq PRN Reason Stop Dose Admin Albuterol/Ipratropium 6 ml 03/05/25 18:04 03/05/25 18:57 Ipratropium/Albuterol 3 Ml Neb IH 03/05/25 18:05 6 ml ONCE ONE Administration Azithromycin 500 mg/ Sodium 250 mls @ 250 mls/hr 03/05/25 19:17 Chloride IV 03/05/25 19:18 ONCE ONE Methylprednisolone Sodium Succinate 125 mg 03/05/25 18:04 03/05/25 18:58 Methylprednisolone Sod Succ 125mg Vial IV 03/05/25 18:05 125 mg ONCE ONE Administration ORDERS Category Date Time Status XR chest portable Stat Exams 03/05/25 17:51 Completed Complete Blood Count Auto Diff Stat Lab 03/05/25 17:55 Completed Comprehensive Metabolic Panel Stat Lab 03/05/25 17:55 Completed Magnesium Stat Lab 03/05/25 17:55 Completed NT Pro Brain Natriuretic Pep. Stat Lab 03/05/25 17:55 Completed Troponin I Q3H Lab 03/05/25 21:00 Ordered Troponin I Q3H Lab 03/06/25 00:00 Ordered Troponin I Stat Lab 03/05/25 17:55 Completed VBG [Venous Blood Gas] Stat RT 03/05/25 17:51 Completed MDM Narrative Medical Decision Narrative: 59-year-old female presents the emergency department with shortness of breath for 3 days, differential diagnose include but not limited to, ACS, cardiac arrhythmia, electrolyte disturbance, pneumonia, pneumonitis, new onset/CHF exacerbation, COPD exacerbation, acute bronchitis, acute hypoxemic respiratory failure among others. Will obtain basic laboratory studies, troponin, proBNP, chest x-ray, EKG, magnesium level, and VBG, will give 6 mm DuoNeb per RT, 125 mg IV methylprednisone. VBG is notable for normal pH, pCO2 is minimal elevated at 54.3, bicarb is minimally elevated at 30.1, venous lactic acid levels minimally elevated 2.6 otherwise unremarkable. CBC is noted for mild leukocytosis of 15.8, which is similar to 2 days prior. Otherwise unremarkable CBC Troponin is less than 0.01 and proBNP is mildly elevated at 324. I reviewed the patient's chest x-ray along the corresponding radiologic report, no acute radiographic finding identified, left lower lung zone density summation artifact versus infiltration. Patient had episode of hypoxia where her SpO2 dropped around 88 to 89% on room air, just resting at the bedside, will place patient on 2 L nasal cannula. Attempted walk test by nursing staff, patient without nasal cannula, patient's ox saturation dropped to around 88 to 89% will place patient back on 2 L nasal cannula. I attempted to discuss this patient's case with the hospitalist service at approximately 7:13 PM, I did speak with FIELD SALES AGENT, she is currently in the patient's room and will call me back. Will start IV ceftriaxone and IV azithromycin here in the emergency department. I discussed patient case with attending physician Dr. Flowers shift change, he will be assuming the patient's care/workup, disposition will be pending hospitalist callback, most likely admission for COPD exacerbation, with failure of outpatient therapy and new onset oxygen requirement. <Cheli Flowers MD - Last Filed: 03/05/25 19:34> Vital Signs Vital Signs: 03/05/25 17:35 Temperature 98.6 F Temperature Source Oral Pulse Rate [Right Brachial] 103 H Respiratory Rate 16 Blood Pressure [Right Arm] 137/70 Blood Pressure Mean [Right Arm] 92 Blood Pressure Source [Right Arm] Automatic Cuff Blood Pressure Position [Right Arm] Sitting 02 Sat by Pulse Oximetry 92 L Oxygen Delivery Method Room Air Lab Data Labs: Lab Results 03/05/25 17:51: VBG pH 7.36, VBG pCO2 54.3 H, VBG pO2 28.1, VBG HCO3 30.1 H, VBG Total CO2 31.8 H, VBG O2 Saturation 53.6, VBG Base Excess 4.7 H, VBG Lactic Acid 2.6 H 03/05/25 17:55: WBC 15.8 H, RBC 4.80, Hgb 13.7, Hct 41.7, MCV 86.9, MCH 28.5, MCHC 32.9, RDW 13.3, Plt Count 366, MPV 9.9, Neut % (Auto) 90.8 H, Lymph % (Auto) 5.8 L, Petroleum % (Auto) 2.7, Eos % (Auto) 0.0 L, Baso % (Auto) 0.1, Neut # (Auto) 14.4 H, Lymph # (Auto) 0.9, Petroleum # (Auto) 0.4, Eos # (Auto) 0.0, Baso # (Auto) 0.0, Sodium 138, Potassium 4.3, Chloride 92 L, Carbon Dioxide 31 H, Anion Gap 19.3 H, BUN 9 D, Creatinine 0.60, Estimated Creat Clear 85, Estimated GFR 102, Est GFR ( Amer) 123, Glucose 138 H, Calcium 9.2, Magnesium 2.3, Total Bilirubin 0.5, AST 23, ALT 22, Alkaline Phosphatase 107, Troponin I < 0.01, NT-Pro-B Natriuret Pep 324 H, Total Protein 8.3 H, Albumin 4.4, Globulin 3.9 H, Albumin/Globulin Ratio 1.1 Response Orders (Tests/Meds): ED MEDICATIONS Generic Name Dose Route Start Last Admin Trade Name Freq PRN Reason Stop Dose Admin Ceftriaxone Sodium 1 gm/ 50 mls @ 100 mls/hr 03/05/25 19:16 Sodium Chloride IV 03/05/25 19:45 ONCE ONE Discontinued Medications Generic Name Dose Route Start Last Admin Trade Name Freq PRN Reason Stop Dose Admin Albuterol/Ipratropium 6 ml 03/05/25 18:04 03/05/25 18:57 Ipratropium/Albuterol 3 Ml Neb IH 03/05/25 18:05 6 ml ONCE ONE Administration Azithromycin 500 mg/ Sodium 250 mls @ 250 mls/hr 03/05/25 19:17 Chloride IV 03/05/25 19:18 ONCE ONE Methylprednisolone Sodium Succinate 125 mg 03/05/25 18:04 03/05/25 18:58 Methylprednisolone Sod Succ 125mg Vial IV 03/05/25 18:05 125 mg ONCE ONE Administration ORDERS Category Date Time Status XR chest portable Stat Exams 03/05/25 17:51 Completed Complete Blood Count Auto Diff Stat Lab 03/05/25 17:55 Completed Comprehensive Metabolic Panel Stat Lab 03/05/25 17:55 Completed Magnesium Stat Lab 03/05/25 17:55 Completed NT Pro Brain Natriuretic Pep. Stat Lab 03/05/25 17:55 Completed Troponin I Q3H Lab 03/05/25 21:00 Ordered Troponin I Q3H Lab 03/06/25 00:00 Ordered Troponin I Stat Lab 03/05/25 17:55 Completed VBG [Venous Blood Gas] Stat RT 03/05/25 17:51 Completed
--- NOTE | 2025-03-05 17:51 | XR_ITS ---
PROCEDURE INFORMATION: Exam: XR Chest Exam date and time: 03/05/2025 6:00 PM Age: 59 years old Clinical indication: Shortness of breath; Additional info: SOA, copd x 10 yrs, 50 yr smoker, new cough TECHNIQUE: Imaging protocol: Radiologic exam of the chest. Views: 1 view. COMPARISON: CR XR CHEST 2V 03/03/2025 8:47 PM FINDINGS: Lungs: Left lower lung zone density. Pleural spaces: Unremarkable. No pleural effusion. No pneumothorax. Heart/Mediastinum: Unremarkable. No cardiomegaly. Bones/joints: Unremarkable. IMPRESSION: No acute radiographic findings identified. Left lower lung zone density summation artifact versus infiltration.
[2025-03-05 18:02] LABS: VBG HCO3 30.1 mmol/L (23-30); VBG PH 7.36 mmol/L (7.31-7.41); VBG PO2 28.1 mmol/L (28-40)
[2025-03-05 18:03] LABS: Hematocrit 41.7 % (37.0-47.0); Hemoglobin 13.7 g/dL (12.2-16.2); Immature Granulocytes % 0.6 %; Mean Corpuscular HGB Conc 32.9 g/dL (31.8-35.4); Mean Corpuscular Hemoglobin 28.5 pg (27.0-31.2); Mean Corpuscular Volume 86.9 fl (81-99); Nucleated Red Blood Cells % 0 %; Platelet Count 366 K/mm3 (142-424); Red Blood Count 4.80 M/mm3 (4.20-5.40); Red Cell Distribution Width-SD 42.3 fL; White Blood Count 15.8 K/mm3 (4.8-10.8)
[2025-03-05 18:07] LABS: Lactate Venous 2.6 mmol/L (0.4-2.0); VBG PCO2 54.3 mmol/L (35-51)
[2025-03-05 18:23] LABS: Alanine Aminotransferase 22 U/L (12-78); Albumin Level 4.4 g/dl (3.5-5.0); Albumin/Globulin Ratio 1.1 (1.1-1.8); Alkaline Phosphatase 107 U/L (38-126); Anion Gap 19.3 mEq/L (5-15); Aspartate Amino Transferase 23 U/L (14-36); Bilirubin,Total 0.5 mg/dl (0.2-1.3); Blood Urea Nitrogen 9 mg/dl (7-17); Calcium 9.2 mg/dl (8.4-10.2); Carbon Dioxide 31 mmol/L (22.0-30.0); Chloride 92 mmol/L (98-107); Creatinine Clearance Estimated 85 mL/min (50-200); Creatinine,Serum 0.60 mg/dl (0.52-1.04); Estimated Glomerular Filt Rate 102 ml/min (>60); GFR (African American) 123 ML/MIN (>60); Globulin 3.9 g/dL (1.3-3.2); Glucose 138 mg/dl (74-100); Magnesium 2.3 mg/dl (1.6-2.3); Potassium 4.3 mmoL/L (3.5-5.1); Sodium 138 mmol/L (136-145); Total Protein,Serum 8.3 g/dl (6.3-8.2)
[2025-03-05 18:35] LABS: NT Pro Brain Natriuretic Pep. 324 pg/mL (0-125)
[2025-03-05 18:37] LABS: Troponin I < 0.01 ng/ml (0.00-0.034)
[2025-03-05] MEDS: IPRATROPIUM/ALBUTEROL 3 ML NEB 6 ML IH (18:57)
[2025-03-05] MEDS: METHYLPREDNISOLONE SOD SUCC 125MG VIAL 125 MG IV (18:58)
[2025-03-05] MEDS: AZITHROMYCIN 500 MG in 0.9 % SODIUM CHLORIDE 250 ML 250 MG IV (19:54)
--- NOTE | 2025-03-05 20:52 | PC.NURSE ---
Patient arrived to floor via wheelchair from ED at 20:49.
--- NOTE | 2025-03-05 21:07 | P.HP_ITS ---
History of Present Illness *Admission Date: 03/05/25 *Reason for visit:: Shortness of breath *History of present illness: This is a 59-year-old female with a past medical history of COPD not on O2 at home, who presents emergency department today with worsening hypoxia and shortness of breath. She was seen in the emergency department on 713 for COPD exacerbation and was discharged home on prednisone and azithromycin. Followed up with Dr. Russell today in [place] who sent her here to be admitted. She reports last night her oxygen saturations were in the 70s but had improvement after her nebulizer. She presented to the outpatient office today with oxygen saturations in the high 80s. She endorses worsening shortness of breath and cough. Yellow sputum production. Denies fever. States that she feels winded no matter what. Does not endorse significant orthopnea. Emergency Department workup notable for probable left lower lobe pneumonia noted on chest imaging. She is hypoxic requiring 3 L nasal cannula to maintain oxygen saturation greater than 90%. Given her new oxygen requirement and continued difficulty breathing is felt she would benefit from hospitalization. She is admitted to hospitalist [facility] Disclaimer: The information contained in this section may have been updated after the patient was seen, as this information can be updated by other users. Medical History MCKENNA (obstructive sleep apnea) Nocturnal hypoxia Elevated lipase Obesity (BMI 30-39.9) Chronic obstructive pulmonary disease Surgical History History of cholecystectomy Family History Other Cancer Diabetes Hyperlipidemia Hypertension Social History Smoking Status: Current every day smoker tobacco type: cigarettes packs per day: 1 alcohol intake: never substance use type: denies use current occupational status: employed Travel in the last 8 weeks?: None household members: spouse housing: house marital status: number of children: 3 Have you lived/traveled outside US in past 30 days?: No Contact w/someone who lives/traveled outside US past 30 days?: No Exposure to someone with infectious disease in past 14 days?: No Do you have a fever (greater than 100.4 F or 38 C)?: No Have you tested positive for COVID-19?: No Exposed to someone with COVID-19 in past 14 days?: No Do you have a sore throat?: No Do you have a cough?: No Do you have any weakness?: No Do you have any diarrhea?: No Are you experiencing any unusual bleeding?: No Do you have any muscle aches/pain?: No Do you have any abdominal pain?: No Are you experiencing loss of taste or smell?: No Other Medical History Have you received the Flu Vaccine for this season: No Have you received the Pneumonia Vaccine: No Review of Systems Review of Systems Review of systems:: pertinent systems reviewed and negative unless documented below Review of systems (narrative): Negative except for HPI Meds Home Medications and Allergies Home Medications ?Medication ?Instructions ?Recorded ?Confirmed ?Type ipratropium 0.5 mg-albuterol 3 mg 3 ml inhalation Q4HP PRN Shortness 03/27/24 03/05/25 Rx (2.5 mg base)/3 mL nebulization Of Breath #180 mL soln fluticasone fur. 100 mcg-umeclid 1 inh inhalation JEANCARLOS Y 90 days #3 07/11/24 03/05/25 Rx 62.5 mcg-vilant 25 mcg ea inhalat.powder (Trelegy Ellipta) azithromycin 250 mg tablet 250 mg PO DAILY 4 days #4 t abs 03/03/25 03/05/25 Rx prednisone 20 mg tablet 40 mg (2 x 20 mg) PO DAILY 5 days 03/03/25 03/05/25 Rx #10 tabs New Prescriptions to Start Prescriptions: Allergies Allergy/AdvReac Type Severity Reaction Status Date / Time No Known Allergies Allergy Verified 03/05/25 14:21 Exam Data for Last 24 hours Vital signs and Labs for Last 24 Hours: Temp Pulse Resp BP Pulse Ox O2 Del Method O2 Flow Rate 98.2 F 100 H 20 143/77 H 94 L Nasal Cannula 2 03/05/25 20:59 03/05/25 20:59 03/05/25 20:59 03/05/25 20:59 03/05/25 20:59 03/05/25 20:59 03/05/25 20:59 Laboratory Results - last 24 hr 03/05/25 17:51: VBG pH 7.36, VBG pCO2 54.3 H, VBG pO2 28.1, VBG HCO3 30.1 H, VBG Total CO2 31.8 H, VBG O2 Saturation 53.6, VBG Base Excess 4.7 H, VBG Lactic Acid 2.6 H 03/05/25 17:55: WBC 15.8 H, RBC 4.80, Hgb 13.7, Hct 41.7, MCV 86.9, MCH 28.5, MCHC 32.9, RDW 13.3, Plt Count 366, MPV 9.9, Neut % (Auto) 90.8 H, Lymph % (Auto) 5.8 L, [place] % (Auto) 2.7, Eos % (Auto) 0.0 L, Baso % (Auto) 0.1, Neut # (Auto) 14.4 H, Lymph # (Auto) 0.9, [place] # (Auto) 0.4, Eos # (Auto) 0.0, Baso # (Auto) 0.0, Sodium 138, Potassium 4.3, Chloride 92 L, Carbon Dioxide 31 H, Anion Gap 19.3 H, BUN 9 D, Creatinine 0.60, Estimated Creat Clear 85, Estimated GFR 102, Est GFR ( Amer) 123, Glucose 138 H, Calcium 9.2, Magnesium 2.3, Total Bilirubin 0.5, AST 23, ALT 22, Alkaline Phosphatase 107, Troponin I < 0.01, NT-Pro-B Natriuret Pep 324 H, Total Protein 8.3 H, Albumin 4.4, Globulin 3.9 H, Albumin/Globulin Ratio 1.1 I & O for Last 24 hours: Intake & Output 03/02/25 03/03/25 03/04/25 03/05/25 23:59 23:59 23:59 23:59 Weight 90.718 kg Constitutional Constitutional: no acute distress *Routine HEENT Exam Head: Present normocephalic Eye: Present EOMI and PERRL ENT: Present mucous membranes moist *Routine Neck Exam Neck: Present supple; Absent lymphadenopathy *Routine Respiratory Exam Respiratory: Present accessory muscle use, wheezes and crackles *Routine Cardiovascular Exam Cardiovascular: Present RRR *Routine Abdominal Exam Abdominal: Present soft and normoactive bowel sounds; Absent tenderness *Routine Rectal Exam Rectal:: deferred *Routine Genitalia Exam Genitalia:: deferred *Routine Extremities Exam Extremities: Absent cyanosis, clubbing or edema *Routine Skin Exam Skin: Present warm; Absent rash *Routine Neurological Exam Neurological: Present alert and oriented X3 Assessment and Plan *Assessment and plan (1) COPD (chronic obstructive pulmonary disease): Status: Acute Category: Medical Code(s): J44.9 - Chronic obstructive pulmonary disease, unspecified (2) Acute and chronic respiratory failure with hypoxia: Status: Acute Category: Medical Code(s): J96.21 - Acute and chronic respiratory failure with hypoxia (3) Obesity (BMI 30-39.9): Status: Chronic Category: Medical Code(s): E66.9 - Obesity, unspecified Plan #Acute on chronic respiratory failure with hypoxia #COPD exacerbation #Pneumonia Chest x-ray with opacity at the left lower lung field likely secondary to pneumonia. Continue Doxycycline and Rocephin Continue bronchodilators and corticosteroids Continue mucolytic's Obtain sputum culture when able Pulmonary toilet, wean oxygen as tolerated. Patient is on room air at home. #Obesity Complicates all aspects of care
[2025-03-05 22:05] LABS: Reflex Lactic Add Lactic Reflex
[2025-03-05] MEDS: guaiFENesin 600 MG TAB.ER.12H PO (22:08)
[2025-03-05 22:12] LABS: Troponin I < 0.01 ng/ml (0.00-0.034)
[2025-03-05 22:28] LABS: Lactic Acid Follow Up (RFLX 1) 3.1 mmol/L (0.7-2.1)
[2025-03-05] MEDS: IPRATROPIUM/ALBUTEROL 3 ML NEB IH (23:13)
[2025-03-05 23:48] LABS: Reflex Lactic (2 hrs) Add Lactic Reflex
[2025-03-06] VITALS (11 sets, daily range): BP systolic 113–135; BP diastolic 62–76; PULSE 79–102; RESP 16–19; TEMP 36.4–36.9; O2SAT 91–96; BMI 36.6
[2025-03-06 00:38] LABS: Lactic Acid Follow up (RFLX 2) 3.2 mmol/L (0.7-2.1)
[2025-03-06 01:03] LABS: Troponin I < 0.01 ng/ml (0.00-0.034)
[2025-03-06] MEDS: ACETAMINOPHEN 325MG TAB 650 MG PO ×2 (03:59→09:29)
--- NOTE | 2025-03-06 04:46 | PC.NURSE ---
Pt. was admitted to [facility] last night from the ED. Pt. was seen in the ED 03/03/25 for COPD exacerbation. Pt. was discharged home and had followup 03/05 with PMD> Pt. had SOB and low oxygen saturations. Pt. sent to the ED and admitted with resp failure with hypoxia, COPD exacerbation and LLL pneumonia. Pt. alert and orientated x 4. Pt. on oxygen 3 liters per nasal cannula. Pt. does not wear oxygen at baseline. Pt. has sheri congested and productive cough. sputum sample sent to lab. Pt. able to speak in full sentences. Does c/o some shortness of breath. Pt. up to bathroom to void and is more sob with activity. wears oxygen to walk to BR.. Pt. c/o stress headach. Medicated with Tylenol . SCD's in place. Pt. resting but has not slept much. Personal items and call zaragoza in reach.
[2025-03-06] MEDS: IPRATROPIUM/ALBUTEROL 3 ML NEB IH ×5 (06:03→21:53)
[2025-03-06 06:46] LABS: Hematocrit 38.9 % (37.0-47.0); Hemoglobin 12.5 g/dL (12.2-16.2); Immature Granulocytes % 0.5 %; Mean Corpuscular HGB Conc 32.1 g/dL (31.8-35.4); Mean Corpuscular Hemoglobin 28.2 pg (27.0-31.2); Mean Corpuscular Volume 87.8 fl (81-99); Nucleated Red Blood Cells % 0 %; Platelet Count 352 K/mm3 (142-424); Red Blood Count 4.43 M/mm3 (4.20-5.40); Red Cell Distribution Width-SD 43.0 fL; White Blood Count 14.8 K/mm3 (4.8-10.8)
[2025-03-06 07:01] LABS: Anion Gap 15.4 mEq/L (5-15); Blood Urea Nitrogen 8 mg/dl (7-17); Calcium 9.1 mg/dl (8.4-10.2); Carbon Dioxide 32 mmol/L (22.0-30.0); Chloride 94 mmol/L (98-107); Creatinine Clearance Estimated 85 mL/min (50-200); Creatinine,Serum 0.80 mg/dl (0.52-1.04); Estimated Glomerular Filt Rate 73 ml/min (>60); GFR (African American) 88 ML/MIN (>60); Glucose 125 mg/dl (74-100); Potassium 4.4 mmoL/L (3.5-5.1); Sodium 137 mmol/L (136-145)
--- NOTE | 2025-03-06 08:31 | HMH.PHAINT1 ---
Pharmacy Intervention Comments: MEDICATION RECONCILIATION COMPLETED ON PATIENT USING EXTERNAL FILL HISTORY FROM PHARMACY. -LASHAE OWEN, ATIFD
[2025-03-06] MEDS: guaiFENesin 600 MG TAB.ER.12H PO ×2 (09:29→20:45)
--- NOTE | 2025-03-06 10:00 | EXP.PULM.CON ---
History of Present Illness History of present illness: Ms. Barr is a 59-year-old female with reported history of COPD current smoker greater than [id number] smoking not using any inhalers or oxygen supplementation at baseline presented to the ER with worsening respiratory distress and pulmonary was called for further evaluation and management. Patient was recently seen in the ER on 03/03/2025 for presumed COPD exacerbation, discharged home on azithromycin and prednisone. Admits sick contacts last week and, symptoms started with worsening respiratory distress body aches and subjective fevers. [facility] Disclaimer: The information contained in this section may have been updated after the patient was seen, as this information can be updated by other users. Medical History MCKENNA (obstructive sleep apnea) Nocturnal hypoxia Elevated lipase Obesity (BMI 30-39.9) Chronic obstructive pulmonary disease Surgical History History of cholecystectomy Family History Other Cancer Diabetes Hyperlipidemia Hypertension Social History (Updated 03/05/25 @ 21:41 by Libby Rhodes RN) Smoking Status: Current every day smoker tobacco type: cigarettes packs per day: 1 alcohol intake: never substance use type: denies use current occupational status: retired Travel in the last 8 weeks?: None household members: spouse housing: house marital status: number of children: 3 Have you lived/traveled outside US in past 30 days?: No Contact w/someone who lives/traveled outside US past 30 days?: No Exposure to someone with infectious disease in past 14 days?: No Do you have a fever (greater than 100.4 F or 38 C)?: No Have you tested positive for COVID-19?: No Exposed to someone with COVID-19 in past 14 days?: No Do you have a sore throat?: No Do you have a cough?: No Do you have any weakness?: No Are you experiencing any nausea/vomitting?: No Do you have any diarrhea?: No Are you experiencing any unusual bleeding?: No Do you have any muscle aches/pain?: No Do you have any abdominal pain?: No Are you experiencing loss of taste or smell?: No Review of Systems Constitutional Constitutional: Reports body ache(s), Reports fever(s) and Reports lethargy Eyes Eyes: Denies eye discharge, Denies dry eyes, Denies irritation and Denies itchy eyes ENT Ears, Nose, Mouth, and Throat: Denies epistaxis, Denies facial pain, Denies lip swelling and Denies throat swelling *Cardiovascular Cardiovascular: Reports dyspnea and Reports dyspnea on exertion *Respiratory Respiratory: Denies change in phlegm color, Reports chest congestion, Reports cough, Reports dyspnea, Reports dyspnea on exertion, Reports excessive phlegm production, Denies hemoptysis, Denies pain on inspiration, Denies pain with cough and Reports wheezing *Gastrointestinal Gastrointestinal: Denies abdominal pain, Denies belching and Denies cramping *Musculoskeletal Musculoskeletal: Reports back pain, Reports myalgias and Reports other (No small joint swelling or Pain) Psychiatric Psychiatric: Denies homicidal ideation and Denies suicidal ideation Endocrine Endocrine: Denies heat intolerance Hematologic/Lymphatic Hematologic/Lymphatic: Denies easy bleeding and Denies lymphadenopathy Allergic/Immunologic Allergic/Immunologic: Denies itchy eyes, Denies lip swelling, Denies throat swelling and Reports wheezing Pulmonology Exam Inpatient Vital signs and Labs for Last 24 Hours: Temp Pulse Resp BP Pulse Ox O2 Del Method O2 Flow Rate 97.8 F 84 16 114/62 95 Nasal Cannula 3 03/06/25 08:00 03/06/25 08:00 03/06/25 08:00 03/06/25 08:00 03/06/25 08:00 03/06/25 08:00 03/06/25 08:00 Laboratory Results - last 24 hr 03/05/25 17:51: VBG pH 7.36, VBG pCO2 54.3 H, VBG pO2 28.1, VBG HCO3 30.1 H, VBG Total CO2 31.8 H, VBG O2 Saturation 53.6, VBG Base Excess 4.7 H, VBG Lactic Acid 2.6 H 03/05/25 17:55: WBC 15.8 H, RBC 4.80, Hgb 13.7, Hct 41.7, MCV 86.9, MCH 28.5, MCHC 32.9, RDW 13.3, Plt Count 366, MPV 9.9, Neut % (Auto) 90.8 H, Lymph % (Auto) 5.8 L, [place] % (Auto) 2.7, Eos % (Auto) 0.0 L, Baso % (Auto) 0.1, Neut # (Auto) 14.4 H, Lymph # (Auto) 0.9, [place] # (Auto) 0.4, Eos # (Auto) 0.0, Baso # (Auto) 0.0, Sodium 138, Potassium 4.3, Chloride 92 L, Carbon Dioxide 31 H, Anion Gap 19.3 H, BUN 9 D, Creatinine 0.60, Estimated Creat Clear 85, Estimated GFR 102, Est GFR ( Amer) 123, Glucose 138 H, Calcium 9.2, Magnesium 2.3, Total Bilirubin 0.5, AST 23, ALT 22, Alkaline Phosphatase 107, Troponin I < 0.01, NT-Pro-B Natriuret Pep 324 H, Total Protein 8.3 H, Albumin 4.4, Globulin 3.9 H, Albumin/Globulin Ratio 1.1 03/05/25 21:35: Lactate 3.1 H, Troponin I < 0.01 03/06/25 00:09: Lactate 3.2 H, Troponin I < 0.01 03/06/25 05:52: WBC 14.8 H, RBC 4.43, Hgb 12.5, Hct 38.9, MCV 87.8, MCH 28.2, MCHC 32.1, RDW 13.3, Plt Count 352, MPV 10.4, Neut % (Auto) 87.8 H, Lymph % (Auto) 9.0 L, [place] % (Auto) 2.6, Eos % (Auto) 0.0 L, Baso % (Auto) 0.1, Neut # (Auto) 13.0 H, Lymph # (Auto) 1.3, [place] # (Auto) 0.4, Eos # (Auto) 0.0, Baso # (Auto) 0.0, Sodium 137, Potassium 4.4, Chloride 94 L, Carbon Dioxide 32 H, Anion Gap 15.4 H, BUN 8, Creatinine 0.80 D, Estimated Creat Clear 85, Estimated GFR 73, Est GFR ( Amer) 88 D, Glucose 125 H, Calcium 9.1 I & O for Labs for Last 24 Hours: Intake & Output 03/03/25 03/04/25 03/05/25 03/06/25 23:59 23:59 23:59 23:59 Intake Total 240 / 240 Output Total 600 / 600 Balance -360 / -360 Weight 200 lb 200 lb Microbiology Reports for the Last 24 Hours: Microbiology 03/05/25 22:00 Sputum - Expectorated Sputum Gram Stain - Final Constitutional: Present severe distress Head: Present normocephalic and atraumatic ENT: Present normal exam, normal oropharynx and mucous membranes moist Neck: Present normal inspection and full ROM Respiratory: Present respiratory distress, wheezes and able to speak in complete sentences; Absent distant breath sounds Cardiac: Present S1/S2, Tachycardia and radial pulses present GI: Present soft and distention; Absent tenderness or guarding Rectal (female): Present deferred (female): Present deferred Skin: Present intact; Absent cyanosis or jaundice Neuro: Present alert, awake and oriented x 3 Extremities: Present normal inspection; Absent clubbing or cyanosis Psychiatric: Present normal affect and cooperative Meds Home Medications and Allergies Home Medications ?Medication ?Instructions ?Recorded ?Confirmed ?Type azithromycin 250 mg tablet 250 mg PO DAILY 03/06/25 03/06/25 History prednisone 20 mg tablet 40 mg PO DAILY 03/06/25 03/06/25 History New Prescriptions to Start Prescriptions: Allergies Allergy/AdvReac Type Severity Reaction Status Date / Time No Known Allergies Allergy Verified 03/05/25 14:21 Results Laboratory Findings 03/06/25 05:52 03/06/25 05:52 Abnormal lab findings: Abnormal Labs 03/05/25 03/05/25 03/05/25 17:51 17:55 21:35 WBC 15.8 H Neut % (Auto) 90.8 H Lymph % (Auto) 5.8 L Eos % (Auto) 0.0 L Neut # (Auto) 14.4 H VBG pCO2 54.3 H VBG HCO3 30.1 H VBG Total CO2 31.8 H VBG Base Excess 4.7 H VBG Lactic Acid 2.6 H Chloride 92 L Carbon Dioxide 31 H Anion Gap 19.3 H Glucose 138 H Lactate 3.1 H NT-Pro-B Natriuret Pep 324 H Total Protein 8.3 H Globulin 3.9 H 03/06/25 03/06/25 00:09 05:52 WBC 14.8 H Neut % (Auto) 87.8 H Lymph % (Auto) 9.0 L Eos % (Auto) 0.0 L Neut # (Auto) 13.0 H VBG pCO2 VBG HCO3 VBG Total CO2 VBG Base Excess VBG Lactic Acid Chloride 94 L Carbon Dioxide 32 H Anion Gap 15.4 H Glucose 125 H Lactate 3.2 H NT-Pro-B Natriuret Pep Total Protein Globulin Assessment and Plan *Assessment and plan (1) Acute and chronic respiratory failure with hypoxia: Status: Acute Category: Medical Code(s): J96.21 - Acute and chronic respiratory failure with hypoxia (2) COPD exacerbation: Status: Acute Category: Medical Code(s): J44.1 - Chronic obstructive pulmonary disease with (acute) exacerbation Plan Ms. Barr is a 59-year-old female with reported history of COPD current smoker greater than [id number] smoking not using any inhalers or oxygen supplementation at baseline presented to the ER with worsening respiratory distress and pulmonary was called for further evaluation and management. Patient was recently seen in the ER on 03/03/2025 for presumed COPD exacerbation, discharged home on azithromycin and prednisone. Admits sick contacts last week and, symptoms started with worsening respiratory distress body aches and subjective fevers. Afebrile. Hemodynamically stable. Neutrophilic predominant leukocytosis. Blood gas upon admission mild hypercarbic respiratory failure VBG, pH 7.36 and pCO2 54.3. Chest x-ray from her ER admission on from 03/05/2025 no acute pulmonary parenchymal opacities noted. Questionable left lower lobe opacity. Moderate to severe respiratory distress on examination. Bilateral diffuse wheezing noted. Plan: Will hold off on performing CT PE protocol pending clinical improvement Continue oxygen supplementation to maintain O2 saturation goal of 90% and above, currently needing 3 to 4 L. DuoNebs every 4 hours along with Pulmicort every 12 scheduled Continue doxycycline 100 mg p.o. twice daily Continue prednisone 40 mg daily Follow-up with respiratory viral PCR panel
[2025-03-06] MEDS: DOXYCYCLINE HYCL 100 MG TABLET PO ×2 (10:33→20:45)
[2025-03-06 10:38] LABS: Adenovirus,PCR Not Detected (NotDetected); Chlamydophila Pneumoniae, PCR Not Detected (NotDetected); Coronavirus 19, PCR Not Detected (NotDetected); Coronovirus HKU1,PCR Not Detected (NotDetected); Influenza A, PCR Not Detected (NotDetected); Influenza AH1, 2009 Not Detected (NotDetected); Influenza AH1, PCR Not Detected (NotDetected); Influenza AH3,PCR Not Detected (NotDetected); Influenza B, PCR Not Detected (NotDetected); Mycoplasma Pneumoniae, PCR Not Detected (NotDetected); Parainfluenza 1, PCR Not Detected (NotDetected); Parainfluenza 2, PCR Not Detected (NotDetected); Parainfluenza 3, PCR Not Detected (NotDetected); Parainfluenza 4, PCR Not Detected (NotDetected)
--- NOTE | 2025-03-06 11:56 | EXP.ACUTE.PN ---
Subjective *Date: 03/06/25 *Time: 17:09 Interval history: Patient is sitting up in bed, states she is doing okay. Oxygen saturation 95% on 3 L, discussed with patient continue to wean to room air. Patient still seems very short of breath, has a hard time finishing sentences. Lungs are still very tight and wheezy. Will add Pulmicort. Discussed starting a maintenance inhaler for her COPD. Medical Exam Vital signs and Labs for Last 24 Hours: Vital Signs Temp Pulse Pulse Resp BP BP Pulse Ox 03/06/25 11:05 84 03/06/25 11:05 88 03/06/25 11:00 03/06/25 09:00 03/06/25 08:00 03/06/25 08:00 97.8 F 84 16 114/62 95 03/06/25 07:00 03/06/25 06:04 79 03/06/25 06:04 84 03/06/25 06:04 96 03/06/25 05:00 03/06/25 04:00 97.5 F L 83 18 126/76 96 03/06/25 03:00 03/06/25 01:00 03/06/25 00:00 98 F 97 H 19 135/68 94 L 03/05/25 23:14 102 H 03/05/25 23:14 104 H 03/05/25 23:14 96 03/05/25 23:00 03/05/25 21:45 20 94 L 03/05/25 20:59 98.2 F 100 H 20 143/77 H 94 L 03/05/25 20:52 97.6 F 101 H 16 143/77 H 03/05/25 20:30 101 H 16 143/77 H 94 L 03/05/25 20:00 102 H 125/74 94 L 03/05/25 19:30 101 H 131/71 95 03/05/25 18:30 149/79 H 03/05/25 18:00 99 H 128/78 92 L 03/05/25 17:35 98.6 F 103 H 16 137/70 92 L O2 Del Method O2 Flow Rate 03/06/25 11:05 03/06/25 11:05 03/06/25 11:00 Nasal Cannula 3 03/06/25 09:00 Nasal Cannula 3 03/06/25 08:00 Nasal Cannula 3 03/06/25 08:00 Nasal Cannula 3 03/06/25 07:00 Nasal Cannula 3 03/06/25 06:04 03/06/25 06:04 03/06/25 06:04 Nasal Cannula 3 03/06/25 05:00 Nasal Cannula 3 03/06/25 04:00 Room Air 03/06/25 03:00 Nasal Cannula 3 03/06/25 01:00 Nasal Cannula 3 03/06/25 00:00 Nasal Cannula 3 03/05/25 23:14 03/05/25 23:14 03/05/25 23:14 Nasal Cannula 3 03/05/25 23:00 Nasal Cannula 3 03/05/25 21:45 Nasal Cannula 3 03/05/25 20:59 Nasal Cannula 2 03/05/25 20:52 Room Air 03/05/25 20:30 Nasal Cannula 3 03/05/25 20:00 03/05/25 19:30 03/05/25 18:30 03/05/25 18:00 03/05/25 17:35 Room Air Intake and Output 03/05/25 03/06/25 03/06/25 23:59 07:59 15:59 Intake Total 240 / 240 Output Total 0 / 600 600 / 600 Balance 0 / -360 -360 / -360 Intake: Intake, Oral Amount 240 / 240 Output: Output, Urine Amount 0 / 600 600 / 600 Other: Number of Voids 0 Weight 90.718 kg 90.718 kg Patient Weight 03/06/25 23:59 Weight 90.718 kg Laboratory Results - last 24 hr 03/05/25 17:51: VBG pH 7.36, VBG pCO2 54.3 H, VBG pO2 28.1, VBG HCO3 30.1 H, VBG Total CO2 31.8 H, VBG O2 Saturation 53.6, VBG Base Excess 4.7 H, VBG Lactic Acid 2.6 H 03/05/25 17:55: WBC 15.8 H, RBC 4.80, Hgb 13.7, Hct 41.7, MCV 86.9, MCH 28.5, MCHC 32.9, RDW 13.3, Plt Count 366, MPV 9.9, Neut % (Auto) 90.8 H, Lymph % (Auto) 5.8 L, [place] % (Auto) 2.7, Eos % (Auto) 0.0 L, Baso % (Auto) 0.1, Neut # (Auto) 14.4 H, Lymph # (Auto) 0.9, [place] # (Auto) 0.4, Eos # (Auto) 0.0, Baso # (Auto) 0.0, Sodium 138, Potassium 4.3, Chloride 92 L, Carbon Dioxide 31 H, Anion Gap 19.3 H, BUN 9 D, Creatinine 0.60, Estimated Creat Clear 85, Estimated GFR 102, Est GFR ( Amer) 123, Glucose 138 H, Calcium 9.2, Magnesium 2.3, Total Bilirubin 0.5, AST 23, ALT 22, Alkaline Phosphatase 107, Troponin I < 0.01, NT-Pro-B Natriuret Pep 324 H, Total Protein 8.3 H, Albumin 4.4, Globulin 3.9 H, Albumin/Globulin Ratio 1.1 03/05/25 21:35: Lactate 3.1 H, Troponin I < 0.01 03/06/25 00:09: Lactate 3.2 H, Troponin I < 0.01 03/06/25 05:52: WBC 14.8 H, RBC 4.43, Hgb 12.5, Hct 38.9, MCV 87.8, MCH 28.2, MCHC 32.1, RDW 13.3, Plt Count 352, MPV 10.4, Neut % (Auto) 87.8 H, Lymph % (Auto) 9.0 L, [place] % (Auto) 2.6, Eos % (Auto) 0.0 L, Baso % (Auto) 0.1, Neut # (Auto) 13.0 H, Lymph # (Auto) 1.3, [place] # (Auto) 0.4, Eos # (Auto) 0.0, Baso # (Auto) 0.0, Sodium 137, Potassium 4.4, Chloride 94 L, Carbon Dioxide 32 H, Anion Gap 15.4 H, BUN 8, Creatinine 0.80 D, Estimated Creat Clear 85, Estimated GFR 73, Est GFR ( Amer) 88 D, Glucose 125 H, Calcium 9.1 I & O for Labs for Last 24 Hours: Intake & Output 03/03/25 03/04/25 03/05/25 03/06/25 23:59 23:59 23:59 23:59 Intake Total 240 / 240 Output Total 600 / 600 Balance -360 / -360 Weight 90.718 kg 90.718 kg Microbiology Reports for the Last 24 Hours: Microbiology 03/05/25 22:00 Sputum - Expectorated Sputum Gram Stain - Final Constitutional: Present mild distress and cooperative Head: Present atraumatic Eyes: Present as per HPI ENT: Present normal exam Neck: Present normal inspection and full ROM Respiratory: Present wheezes and diminished air movement; Absent able to speak in complete sentences Cardiac: Present Reg Rate and Rhythm GI: Present soft and normal bowel sounds; Absent distention or tenderness Rectal (female): Present deferred (female): Present deferred Extremities: Present normal inspection and full ROM; Absent edema Skin: Present intact Neuro: Present alert, awake and oriented x 3 Assessment and Plan *Assessment and plan (1) Acute and chronic respiratory failure with hypoxia: Status: Acute Category: Medical Code(s): J96.21 - Acute and chronic respiratory failure with hypoxia (2) COPD exacerbation: Status: Acute Category: Medical Code(s): J44.1 - Chronic obstructive pulmonary disease with (acute) exacerbation (3) Tobacco use: Status: Chronic Category: Social Hx Code(s): Z72.0 - Tobacco use (4) BMI greater than 30: Status: Chronic Category: Medical Plan Ms. Barr is a 59-year-old female who presented to the emergency department yesterday with increasing shortness of breath, chest tightness, and was found to be hypoxic with oxygen saturations in the 70s. She was placed on 3 L nasal cannula and oxygen saturation maintained above 92%. She has a history of COPD, tobacco use disorder. She was also seen in the emergency room on 03/03/2025 for COPD exacerbation and discharged home with azithromycin and prednisone. She denies any other medical conditions, chest pain, abdominal pain, nausea, vomiting, fever, chills, weakness. She does endorse smoking approximately half to 1 pack of cigarettes per day. She does state that she is trying to cut back. #COPD exacerbation #Acute hypoxic respiratory failure ?Patient assessment reveals expiratory wheezing throughout, diminished air movement. Patient does remain short of breath and has difficulty speaking in complete sentences. She is not currently on maintenance therapy for her COPD. ?Pulmonology consulted, continue oxygen supplementation to remain above 90%, patient currently on room air maintaining 93% oxygen saturation. ? DuoNebs every 4 hours, Pulmicort every 12 hours scheduled, prednisone 40 daily, doxycycline 100 mg twice daily, Rocephin 2 g daily. ? Patient viral respiratory panel negative. MRSA PCR pending. ?Sputum culture obtained, preliminary showing gram-positive cocci. Awaiting culture and sensitivity ?Leukocytosis 15.8 on admission, trending down today to 14.8. Will continue to monitor CBC in the a.m. ?Chest x-ray showed does left lower lobe consolidation, treat for presumed pneumonia. #Tobacco use disorder ?Patient counseled on smoking cessation, declined nicotine patch at this time. #Obesity ?Obesity complicates all aspects of care, BMI 36 Full code Regular diet Pulmonology consulted Ambulate as tolerated VTE?IPC's
--- NOTE | 2025-03-06 12:43 | PC.NURSE ---
pt room air sat at 1200 vitals was 93. pt remains on room air at this time. continous pulse ox applied.
--- OUTSIDE RECORDS SUMMARY | 2025-03-06 14:30 | XMS_ITS | Clinical Summary ---
Author Organization [facility] Address [address] [place] [address] Phone Care Team Providers Care Business Office Representative Name Role Phone Unavailable Primary Care Provider [...] studies. IMPRESSION- No radiographic evidence of malignancy ([id number]) RECOMMENDATION- Routine screening mammogram in 1 year. * The patient with a palpable abnormality, unexplained by breast imaging, should be managed on clinical basis by the attending physician. * Breast imaging has a false negative rate of 15%. * The patient was notified by mail of the results of this examination. The mammogram was reviewed by a Radiologist and CAD. Party Demonstrator- MIRELA LEMUS Reading Radiologist- ELAN MELENDEZ MD Released Date Time- 12/26/05 2133 Procedure Note Elan Melendez - 10/29/2009 Procedure-MV MAMMO SCREEN W/CAD PANEL Mobile Screening Mammogram Bilateral CC and MLO view(s) were taken. Prior study comparison- December 24, 2004, bilateral mobile screening mammogram. There are scattered fibroglandular densities. No significant changes when compared with prior studies. IMPRESSION- No radiographic evidence of malignancy ([id number]) RECOMMENDATION- Routine screening mammogram in 1 year. * The patient with a palpable abnormality, unexplained by breast imaging, should be managed on clinical basis by the attending physician. * Breast imaging has a false negative rate of 15%. * The patient was notified by mail of the results of this examination. The mammogram was reviewed by a Radiologist and CAD. Party Demonstrator- MIRELA Patel Radiologist- ELAN MELENDEZ MD Released Date Time- 12/26/05 2133 [facility] Justino Perez [facility] HISTORICAL Fin al Result from Last 3 Months or Most Recently Relevant to Health Maintenance Insurance [employer] * Guarantor: Mariann Barr Account Type Relation to Patient Date of Phone Billing Address Personal/Family Self 1965 [id number] [place] [facility] [id number] [place] [id number]
--- NOTE | 2025-03-06 17:03 | PC.NURSE ---
Pt is A&Ox4. Vital signs stable. Attempted to wean pt to room air this afternoon. Pt O2 dropped to 87-88% on room air. 2L NC re-applied. Pt currently weaned to 1L NC. Continuous pule ox applied. PO abx and steroids administered per OCT. Pulmonolgy consulted today. Respiratory panel and MRSA swab collected. Pt resting comfortably sitting up in bed with no further needs voiced at this time. Call light within reach
[2025-03-06] MEDS: BUDESONIDE 0.5MG/2ML NEB 0.5 MG IH (18:44)
[2025-03-06 23:54] LABS: MRSA DNA PCR Positive (Negative)
[2025-03-07] VITALS (10 sets, daily range): BP systolic 127–154; BP diastolic 74–83; PULSE 76–108; RESP 15–22; TEMP 36.6–36.9; O2SAT 90–97; BMI 36.8
[2025-03-07] MEDS: IPRATROPIUM/ALBUTEROL 3 ML NEB IH ×4 (02:21→14:08)
--- NOTE | 2025-03-07 04:24 | PC.NURSE ---
Pt. is alert and orientated x 4. Pt. is on 1 liter of oxygen per N/C. continuous pulse ox in place. Pt. getting bot PO and IV antibiotics. Deunebs q 4 hours. Pt. SOB at rest but getting better jper patient. SOB increases with activity. Pt. up to bathroom to void. stays on the oxygen in bathroom. Pt. resting quietly in bed, SCD's in place and on. Pt. tolerating well. Personal items and call zaragoza in reach.
[2025-03-07] MEDS: BUDESONIDE 0.5MG/2ML NEB 0.5 MG IH (06:14)
[2025-03-07] MEDS: DOXYCYCLINE HYCL 100 MG TABLET PO (08:13)
[2025-03-07] MEDS: guaiFENesin 600 MG TAB.ER.12H PO (08:13)
[2025-03-07 08:35] LABS: Hematocrit 38.3 % (37.0-47.0); Hemoglobin 12.0 g/dL (12.2-16.2); Immature Granulocytes % 1.0 %; Mean Corpuscular HGB Conc 31.3 g/dL (31.8-35.4); Mean Corpuscular Hemoglobin 27.5 pg (27.0-31.2); Mean Corpuscular Volume 87.6 fl (81-99); Nucleated Red Blood Cells % 0 %; Platelet Count 304 K/mm3 (142-424); Red Blood Count 4.37 M/mm3 (4.20-5.40); Red Cell Distribution Width-SD 43.5 fL; White Blood Count 12.2 K/mm3 (4.8-10.8)
[2025-03-07 08:43] LABS: Alanine Aminotransferase 19 U/L (12-78); Albumin Level 3.8 g/dl (3.5-5.0); Albumin/Globulin Ratio 1.2 (1.1-1.8); Alkaline Phosphatase 81 U/L (38-126); Anion Gap 15.1 mEq/L (5-15); Aspartate Amino Transferase 25 U/L (14-36); Bilirubin,Total 0.3 mg/dl (0.2-1.3); Blood Urea Nitrogen 9 mg/dl (7-17); Calcium 8.9 mg/dl (8.4-10.2); Carbon Dioxide 32 mmol/L (22.0-30.0); Chloride 96 mmol/L (98-107); Creatinine Clearance Estimated 85 mL/min (50-200); Creatinine,Serum 0.70 mg/dl (0.52-1.04); Estimated Glomerular Filt Rate 85 ml/min (>60); GFR (African American) 103 ML/MIN (>60); Globulin 3.3 g/dL (1.3-3.2); Glucose 149 mg/dl (74-100); Potassium 3.1 mmoL/L (3.5-5.1); Sodium 140 mmol/L (136-145); Total Protein,Serum 7.1 g/dl (6.3-8.2)
--- NOTE | 2025-03-07 09:34 | EXP.PULM.PN ---
Subjective *Date: 03/07/25 *Time: 11:03 Interval history: No acute respiratory events overnight. Patient admits minimal improvement in her respiratory symptoms. Pulmonology Exam Inpatient Vital signs and Labs for Last 24 Hours: Temp Pulse Resp BP Pulse Ox O2 Del Method O2 Flow Rate 98.1 F 88 16 128/82 92 L Room Air 0.5 03/07/25 08:00 03/07/25 08:00 03/07/25 08:00 03/07/25 08:00 03/07/25 08:00 03/07/25 08:14 03/07/25 06:14 Laboratory Results - last 24 hr 03/06/25 10:35: Chlamy pneumoniae PCR Not detected, Adenovirus (PCR) Not detected, B. pertussis DNA (PCR) Not detected, Coronavirus OC43 (PCR) Not detected, Coronavirus HKU1 (PCR) Not detected, Coronavirus 229E (PCR) Not detected, SARS-CoV-2 (PCR) Not detected, Coronavirus NL63 (PCR) Not detected, Human Metapneumovir PCR Not detected, Influenza A (H1) PCR Not detected, Influ A (H1N1/09) PCR Not detected, Influenza A (H3) PCR Not detected, Influenza Type A (PCR) Not detected, Influenza Type B (PCR) Not detected, M. pneumoniae (PCR) Not detected, Parainfluenza 1 (PCR) Not detected, Parainfluenza 2 (PCR) Not detected, Parainfluenza 3 (PCR) Not detected, Parainfluenza 4 (PCR) Not detected, RSV (PCR) Not detected, Entero/Rhino (PCR) Not detected 03/06/25 11:30: MRSA (PCR) Positive A 03/07/25 08:26: WBC 12.2 H, RBC 4.37, Hgb 12.0 L, Hct 38.3, MCV 87.6, MCH 27.5, MCHC 31.3 L, RDW 13.4, Plt Count 304, MPV 9.9, Neut % (Auto) 74.7, Lymph % (Auto) 20.9, [place] % (Auto) 3.0, Eos % (Auto) 0.2, Baso % (Auto) 0.2, Neut # (Auto) 9.1 H, Lymph # (Auto) 2.5, [place] # (Auto) 0.4, Eos # (Auto) 0.0, Baso # (Auto) 0.0, Sodium 140, Potassium 3.1 L D, Chloride 96 L, Carbon Dioxide 32 H, Anion Gap 15.1 H, BUN 9, Creatinine 0.70, Estimated Creat Clear 85, Estimated GFR 85, Est GFR ( Amer) 103, Glucose 149 H, Lactate 2.7 H, Calcium 8.9, Total Bilirubin 0.3, AST 25, ALT 19, Alkaline Phosphatase 81, Total Protein 7.1, Albumin 3.8, Globulin 3.3 H, Albumin/Globulin Ratio 1.2 Temp Pulse Resp BP Pulse Ox O2 Del Method O2 Flow Rate 97.8 F 84 16 114/62 95 Nasal Cannula 3 03/06/25 08:00 03/06/25 08:00 03/06/25 08:00 03/06/25 08:00 03/06/25 08:00 03/06/25 08:00 03/06/25 08:00 Laboratory Results - last 24 hr 03/05/25 17:51: VBG pH 7.36, VBG pCO2 54.3 H, VBG pO2 28.1, VBG HCO3 30.1 H, VBG Total CO2 31.8 H, VBG O2 Saturation 53.6, VBG Base Excess 4.7 H, VBG Lactic Acid 2.6 H 03/05/25 17:55: WBC 15.8 H, RBC 4.80, Hgb 13.7, Hct 41.7, MCV 86.9, MCH 28.5, MCHC 32.9, RDW 13.3, Plt Count 366, MPV 9.9, Neut % (Auto) 90.8 H, Lymph % (Auto) 5.8 L, [place] % (Auto) 2.7, Eos % (Auto) 0.0 L, Baso % (Auto) 0.1, Neut # (Auto) 14.4 H, Lymph # (Auto) 0.9, [place] # (Auto) 0.4, Eos # (Auto) 0.0, Baso # (Auto) 0.0, Sodium 138, Potassium 4.3, Chloride 92 L, Carbon Dioxide 31 H, Anion Gap 19.3 H, BUN 9 D, Creatinine 0.60, Estimated Creat Clear 85, Estimated GFR 102, Est GFR ( Amer) 123, Glucose 138 H, Calcium 9.2, Magnesium 2.3, Total Bilirubin 0.5, AST 23, ALT 22, Alkaline Phosphatase 107, Troponin I < 0.01, NT-Pro-B Natriuret Pep 324 H, Total Protein 8.3 H, Albumin 4.4, Globulin 3.9 H, Albumin/Globulin Ratio 1.1 03/05/25 21:35: Lactate 3.1 H, Troponin I < 0.01 03/06/25 00:09: Lactate 3.2 H, Troponin I < 0.01 03/06/25 05:52: WBC 14.8 H, RBC 4.43, Hgb 12.5, Hct 38.9, MCV 87.8, MCH 28.2, MCHC 32.1, RDW 13.3, Plt Count 352, MPV 10.4, Neut % (Auto) 87.8 H, Lymph % (Auto) 9.0 L, [place] % (Auto) 2.6, Eos % (Auto) 0.0 L, Baso % (Auto) 0.1, Neut # (Auto) 13.0 H, Lymph # (Auto) 1.3, [place] # (Auto) 0.4, Eos # (Auto) 0.0, Baso # (Auto) 0.0, Sodium 137, Potassium 4.4, Chloride 94 L, Carbon Dioxide 32 H, Anion Gap 15.4 H, BUN 8, Creatinine 0.80 D, Estimated Creat Clear 85, Estimated GFR 73, Est GFR ( Amer) 88 D, Glucose 125 H, Calcium 9.1 I & O for Labs for Last 24 Hours: Intake & Output 03/04/25 03/05/25 03/06/25 03/07/25 23:59 23:59 23:59 23:59 Intake Total 1080 / 1180 460 / 460 Output Total 800 / 800 Balance 280 / 380 460 / 460 Weight 200 lb 200 lb 199 lb 15.983 oz Intake & Output 03/03/25 03/04/25 03/05/25 03/06/25 23:59 23:59 23:59 23:59 Intake Total 240 / 240 Output Total 600 / 600 Balance -360 / -360 Weight 200 lb 200 lb Microbiology Reports for the Last 24 Hours: Microbiology 03/05/25 22:00 Sputum - Expectorated Sputum Gram Stain - Final Constitutional: Present severe distress Head: Present normocephalic and atraumatic ENT: Present normal exam, normal oropharynx and mucous membranes moist Neck: Present normal inspection and full ROM Respiratory: Present respiratory distress and able to speak in complete sentences; Absent wheezes or distant breath sounds Cardiac: Present S1/S2, Tachycardia and radial pulses present GI: Present soft and distention; Absent tenderness or guarding Rectal (female): Present deferred (female): Present deferred Skin: Present intact; Absent cyanosis or jaundice Neuro: Present alert, awake and oriented x 3 Extremities: Present normal inspection; Absent clubbing or cyanosis Psychiatric: Present normal affect and cooperative Assessment and Plan *Assessment and plan (1) Acute and chronic respiratory failure with hypoxia: Status: Acute Category: Medical Code(s): J96.21 - Acute and chronic respiratory failure with hypoxia (2) COPD exacerbation: Status: Acute Category: Medical Code(s): J44.1 - Chronic obstructive pulmonary disease with (acute) exacerbation Plan Ms. Barr is a 59-year-old female with reported history of COPD current smoker greater than [id number] smoking not using any inhalers or oxygen supplementation at baseline presented to the ER with worsening respiratory distress and pulmonary was called for further evaluation and management. Patient was recently seen in the ER on 03/03/2025 for presumed COPD exacerbation, discharged home on azithromycin and prednisone. Admits sick contacts last week and, symptoms started with worsening respiratory distress body aches and subjective fevers. Afebrile. Hemodynamically stable. Neutrophilic predominant leukocytosis. Blood gas upon admission mild hypercarbic respiratory failure VBG, pH 7.36 and pCO2 54.3. Chest x-ray from her ER admission on from 03/05/2025 no acute pulmonary parenchymal opacities noted. Questionable left lower lobe opacity. On initial examination moderate to severe respiratory distress on examination. Bilateral diffuse wheezing noted. Interval update: Improving respiratory distress overnight. Improving wheezing on auscultation. Increasing ox requirements, on 2 L saturating 95%, weaned to 1 L comprehensive respiratory viral PCR panel negative. Afebrile. Hemodynamically stable Plan: Continue oxygen supplementation to maintain O2 saturation goal of 90% and above, 1 to 2 L at rest. 6-minute walk testing prior to discharge. Given improving respiratory status we will hold off on performing further imaging including CT PE protocol. Trelegy 100 inhaler along with DuoNebs 4 times daily as needed Continue doxycycline 100 mg p.o. twice daily x 5 days Continue prednisone 40 mg daily to complete a total of 5-day course # Thank you for involving pulmonary in this patient care will follow patient in pulmonary clinic 2 weeks postdischarge
[2025-03-07] MEDS: FLUTICASONE/UMECLIDIN/VILANTER 100/62.5/25MCG INHALER 1 PUFF IH (11:20)
[2025-03-07] MEDS: POTASSIUM CHLORIDE 20MEQ TAB 40 MEQ PO ×2 (12:21→15:07)
[2025-03-07 12:31] LABS: Reflex Lactic Add Lactic Reflex
--- NOTE | 2025-03-07 12:38 | CT_ITS ---
FINAL REPORT TECHNIQUE: Thin section axial CT with contrast with multiplanar reconstruction This study was performed with techniques to keep radiation doses as low as reasonably achievable, (ALARA). Individualized dose reduction techniques using automated exposure control or adjustment of mA and/or kV according to the patient's size were employed. CLINICAL HISTORY: Shortness of breath, hypoxia COMPARISON: CT chest 07/20/2022 FINDINGS: Pulmonary vessels enhance in normal fashion without evidence of embolism. Thoracic aorta shows no dissection or aneurysm. There are innumerable new ill-defined nodular densities throughout the lungs, suggestive of bronchiolitis or bronchopneumonia. No areas of cavitation or consolidation are identified. There is no significant pleural effusion. There is no significant pericardial effusion. No mediastinal or hilar adenopathy is present. Bilateral adrenal nodules, likely adenomas, stable in appearance. IMPRESSION: 1. No evidence of pulmonary embolism 2. Ill-defined nodular densities throughout the lungs as described above, suggestive of bronchiolitis or bronchopneumonia. Recommend 2-month chest CT follow-up for further evaluation. Reviewed, Interpreted and Dictated by Faith Claudio MD Transcribed by Arina Franco Authenticated and [facility]
--- NOTE | 2025-03-07 12:46 | P.PN_ITS ---
Subjective *Date: 03/07/25 *Time: 12:46 Interval history: Patient sitting up in bed, currently on room air O2 saturation 87%. Reapplied 2 L nasal cannula. Patient still unable to complete full sentences without hypoxia and shortness of breath. Inspiratory and expiratory wheezes and rhonchi bilaterally. Patient receiving Pulmicort twice daily, every 4 hour DuoNebs, prednisone 40 mg p.o. Patient also continuing IV antibiotics, doxycycline 100 mg twice daily and ceftriaxone 2 g daily. Patient still has wet cough, encouraged use of incentive spirometer. Start Trelegy inhaler. Medical Exam Vital signs and Labs for Last 24 Hours: Vital Signs Temp Pulse Pulse Resp BP Pulse Ox O2 Del Method 03/07/25 11:21 93 L Nasal Cannula 03/07/25 11:10 Nasal Cannula 03/07/25 09:43 95 H 03/07/25 09:43 97 H 03/07/25 09:43 91 L Nasal Cannula 03/07/25 08:14 Room Air 03/07/25 08:00 98.1 F 88 16 128/82 92 L Room Air 03/07/25 08:00 93 L Room Air 03/07/25 07:00 Room Air 03/07/25 06:14 79 03/07/25 06:14 84 03/07/25 06:14 93 L Nasal Cannula 03/07/25 05:00 Nasal Cannula 03/07/25 04:00 98.3 F 81 18 127/76 91 L Nasal Cannula 03/07/25 03:00 Nasal Cannula 03/07/25 02:21 95 H 03/07/25 02:21 94 H 03/07/25 01:00 Nasal Cannula 03/07/25 00:00 98.4 F 76 15 137/74 95 Nasal Cannula 03/06/25 23:00 Room Air 03/06/25 21:54 102 H 03/06/25 21:54 102 H 03/06/25 21:00 Nasal Cannula 03/06/25 20:00 16 95 Nasal Cannula 03/06/25 20:00 98.5 F 101 H 19 133/74 91 L Nasal Cannula 03/06/25 18:50 Room Air 03/06/25 18:44 97 H 03/06/25 18:44 100 H 03/06/25 18:44 92 L Nasal Cannula 03/06/25 17:00 Nasal Cannula 03/06/25 16:00 98.1 F 90 18 133/67 94 L Nasal Cannula 03/06/25 15:00 Nasal Cannula 03/06/25 14:09 93 H 03/06/25 14:09 93 H 03/06/25 14:09 94 L Nasal Cannula 03/06/25 13:00 Room Air O2 Flow Rate 03/07/25 11:21 1 03/07/25 11:10 2 03/07/25 09:43 03/07/25 09:43 03/07/25 09:43 2 03/07/25 08:14 03/07/25 08:00 03/07/25 08:00 03/07/25 07:00 03/07/25 06:14 03/07/25 06:14 03/07/25 06:14 0.5 03/07/25 05:00 0.5 03/07/25 04:00 0.5 03/07/25 03:00 1 03/07/25 02:21 03/07/25 02:21 03/07/25 01:00 1 03/07/25 00:00 1 03/06/25 23:00 03/06/25 21:54 03/06/25 21:54 03/06/25 21:00 1 03/06/25 20:00 1 03/06/25 20:00 1 03/06/25 18:50 03/06/25 18:44 03/06/25 18:44 03/06/25 18:44 1 03/06/25 17:00 1 03/06/25 16:00 2 03/06/25 15:00 2 03/06/25 14:09 03/06/25 14:09 03/06/25 14:09 2 03/06/25 13:00 Intake and Output 03/06/25 03/07/25 03/07/25 23:59 07:59 15:59 Intake Total 260 / 1180 100 / 460 360 / 460 Output Total 200 / 800 0 / 0 Balance 60 / 380 100 / 460 360 / 460 Intake: Intake, Oral Amount 260 / 1080 360 / 360 Intake, Total IV Amount 100 / 100 Ceftriaxone Sodium 2 gm In 0.9 100 / 100 % Sodium Chloride 100 ml @ 200 mls/hr IV Q24H [facility] Rx#:[id number] Output: Output, Urine Amount 200 / 800 0 / 0 Other: Number of Unmeasured Voids 1 1 Weight 90.718 kg Patient Weight 03/07/25 23:59 Weight 90.718 kg Laboratory Results - last 24 hr 03/06/25 11:30: MRSA (PCR) Positive A 03/07/25 08:26: WBC 12.2 H, RBC 4.37, Hgb 12.0 L, Hct 38.3, MCV 87.6, MCH 27.5, MCHC 31.3 L, RDW 13.4, Plt Count 304, MPV 9.9, Neut % (Auto) 74.7, Lymph % (Auto) 20.9, [place] % (Auto) 3.0, Eos % (Auto) 0.2, Baso % (Auto) 0.2, Neut # (Auto) 9.1 H, Lymph # (Auto) 2.5, [place] # (Auto) 0.4, Eos # (Auto) 0.0, Baso # (Auto) 0.0, Sodium 140, Potassium 3.1 L D, Chloride 96 L, Carbon Dioxide 32 H, Anion Gap 15.1 H, BUN 9, Creatinine 0.70, Estimated Creat Clear 85, Estimated GFR 85, Est GFR ( Amer) 103, Glucose 149 H, Lactate 2.7 H, Calcium 8.9, Total Bilirubin 0.3, AST 25, ALT 19, Alkaline Phosphatase 81, Total Protein 7.1, Albumin 3.8, Globulin 3.3 H, Albumin/Globulin Ratio 1.2 I & O for Labs for Last 24 Hours: Intake & Output 03/04/25 03/05/25 03/06/25 03/07/25 23:59 23:59 23:59 23:59 Intake Total 1080 / 1180 460 / 460 Output Total 800 / 800 0 / 0 Balance 280 / 380 460 / 460 Weight 90.718 kg 90.718 kg 90.718 kg Microbiology Reports for the Last 24 Hours: Microbiology 03/05/25 22:00 Sputum - Expectorated Sputum Gram Stain - Final 03/05/25 22:00 Sputum - Expectorated Sputum Sputum Culture - Preliminary Constitutional: Present mild distress and cooperative Head: Present atraumatic Eyes: Present as per HPI ENT: Present normal exam Neck: Present normal inspection and full ROM Respiratory: Present wheezes and diminished air movement; Absent able to speak in complete sentences Cardiac: Present Reg Rate and Rhythm GI: Present soft and normal bowel sounds; Absent distention or tenderness Rectal (female): Present deferred (female): Present deferred Extremities: Present normal inspection and full ROM; Absent edema Skin: Present intact Neuro: Present alert, awake and oriented x 3 Assessment and Plan *Assessment and plan (1) Acute and chronic respiratory failure with hypoxia: Status: Acute Category: Medical Code(s): J96.21 - Acute and chronic respiratory failure with hypoxia (2) COPD exacerbation: Status: Acute Category: Medical Code(s): J44.1 - Chronic obstructive pulmonary disease with (acute) exacerbation (3) Tobacco use: Status: Chronic Category: Social Hx Code(s): Z72.0 - Tobacco use (4) BMI greater than 30: Status: Chronic Category: Medical Plan Ms. Barr is a 59-year-old female who presented to the emergency department yesterday with increasing shortness of breath, chest tightness, and was found to be hypoxic with oxygen saturations in the 70s. She was placed on 3 L nasal cannula and oxygen saturation maintained above 92%. She has a history of COPD, tobacco use disorder. She was also seen in the emergency room on 03/03/2025 for COPD exacerbation and discharged home with azithromycin and prednisone. She denies any other medical conditions, chest pain, abdominal pain, nausea, vomiting, fever, chills, weakness. She does endorse smoking approximately half to 1 pack of cigarettes per day. She does state that she is trying to cut back. #COPD exacerbation #Acute hypoxic respiratory failure ?Patient assessment reveals expiratory wheezing throughout, diminished air movement. Patient does remain short of breath and has difficulty speaking in complete sentences. She is not currently on maintenance therapy for her COPD. Patient states that she feels minimally better from yesterday, still very short of breath. Will obtain chest CTA due to limited improvement. ? Patient O2 saturation 87% on room air, patient placed back on 2 L nasal cannula at this time. ? DuoNebs every 4 hours, Pulmicort every 12 hours scheduled, prednisone 40 daily, doxycycline 100 mg twice daily, Rocephin 2 g daily. ? Patient viral respiratory panel negative. MRSA PCR positive. ?Sputum culture obtained, preliminary showing gram-positive cocci. Sputum culture preliminary is negative. ?Leukocytosis 15.8 on admission, continues to trend down, 12.2 today. Will continue to monitor CBC in the a.m. ?Chest x-ray showed does left lower lobe consolidation, treat for presumed pneumonia. #Tobacco use disorder ?Patient counseled on smoking cessation, declined nicotine patch at this time. #Obesity ?Obesity complicates all aspects of care, BMI 36 Full code Regular diet Pulmonology consulted Ambulate as tolerated VTE?IPC's
[2025-03-07 13:05] LABS: Lactic Acid Follow Up (RFLX 1) 2.1 mmol/L (0.7-2.1)
[2025-03-07] MEDS: 0.9 % SODIUM CHLORIDE 50 ML VIAL IV (13:47)
[2025-03-07] MEDS: SODIUM CHLORIDE 0.9% 10ML SYR (RAD ONLY) 10 ML IV (13:47)
[2025-03-07] MEDS: IOPAMIDOL-370 (76%);100ML BOTTLE 85 ML IV (13:47)
[2025-03-07 14:43] LABS: Reflex Lactic (2 hrs) Add Lactic Reflex
[2025-03-07 15:11] LABS: Lactic Acid Follow up (RFLX 2) 2.8 mmol/L (0.7-2.1)
--- NOTE | 2025-03-07 16:07 | CA_ITS ---
APPROVED REPORT EXAM: Comprehensive 2D, Doppler, and color-flow Echocardiogram [employer] Helper: Kamila Dias RT(R) Ht: 5 ft 2 in Wt: 200lbs BSA: 1.91 BP: 117/85 mmHg Indications: hypoxia, COPD, SOB, O2 dependent, pneumonia 2D Dimensions LA Volume 15.10 mL LA Volume Index 7.91 mL/m2 (M/F) 16-34 EF AP4 66.60 % GL Strain -17.6 % M-Mode Dimensions RVDd 2.84 cm (0.9-2.6) LA Diam 2.70 cm (1.9-4.0) LVDd 2.00 cm (3.5-5.7) LVDs 1.40 cm (3.5-5.7) IVSd 1.08 cm (0.6-1.1) PWd 1.04 cm (0.6-1.1) EF (Teich) 59.80% FS 30.00% EDV (Teich) 12.70 mL ESV (Teich) 5.10 mL LV Diastology E Decel Time 167 (160-240 msec) E/A Ratio 1.2 Mitral Valve MV E Max Brian. 113.0 (40-130 cm/s) MV A Velocity 93.0 (40-130 cm/s) E/A Ratio 1.22 MV PHT 49.0 ms Left Ventricle The left ventricle is normal size. The left ventricular systolic function is normal. The left ventricular ejection fraction is within the normal range. There is increased LV wall thickness. There is normal LV segmental wall motion. Diastolic function is indeterminate. LVEF is 60%. Right Ventricle The right ventricle is normal size. The right ventricular systolic function is normal. Atria The left atrium size is normal. The right atrium size is normal. There is no Doppler evidence of interatrial shunt. Aortic Valve The aortic valve is mildly thickened. There is no aortic valvular stenosis. Trace aortic regurgitation. Mitral Valve The mitral valve leaflets are mildly thickened. No evidence of mitral valve stenosis. Mild mitral regurgitation. Tricuspid Valve Tricuspid valve is grossly normal in structure and function. Trace tricuspid regurgitation. There is insufficient TR jet to estimate RVSP. Pulmonic Valve The pulmonary valve is normal in structure. Trace pulmonary regurgitation. Great Vessels The aortic root is normal in size. IVC is normal in size and collapses >50% with inspiration. Pericardium There is no pericardial effusion. Other Information Study Quality: Technically Difficult Conclusion Technically difficult study due to poor acoustic windows. Normal biventricular systolic function. Mild MR. Electronically signed by : Marcie Montalvo MD 03/07/2025 23:09:52
--- NOTE | 2025-03-07 16:21 | PC.NURSE ---
pt is A&Ox4. she has some expiratory wheezing on auscultation. she is receiving duoneb treatments every four hours. this morning she had an oxygen saturation of 87% on room air so we bumped her up to 2L NC. we did a walk test with her. on room air she was satting 86% but with 2L NC she was satting 93%. pt has no other needs at this time. call light within reach.
--- NOTE | 2025-03-07 16:41 | P.DS_ITS ---
<Statement entered by Dawit Burr MD - 03/08/25 10:38> Patient had acute hypoxic respiratory failure requiring 2L due to COPD exacerbation, saturating 87% on room air at rest. General Admission date:: 03/05/25 Discharge date: 03/07/25 HPI HPI HPI: This is a 59-year-old female with a past medical history of COPD not on O2 at home, who presents emergency department today with worsening hypoxia and shortness of breath. She was seen in the emergency department on 713 for COPD exacerbation and was discharged home on prednisone and azithromycin. Followed up with Dr. Russell today in [place] who sent her here to be admitted. She reports last night her oxygen saturations were in the 70s but had improvement after her nebulizer. She presented to the outpatient office today with oxygen saturations in the high 80s. She endorses worsening shortness of breath and cough. Yellow sputum production. Denies fever. States that she feels winded no matter what. Does not endorse significant orthopnea. Emergency Department workup notable for probable left lower lobe pneumonia noted on chest imaging. She is hypoxic requiring 3 L nasal cannula to maintain oxygen saturation greater than 90%. Given her new oxygen requirement and continued difficulty breathing is felt she would benefit from hospitalization. She is admitted to hospitalist Hospital Course Hospital Course Hospital Course: Ms. Barr is a 59-year-old female who presented to the emergency department yesterday with increasing shortness of breath, chest tightness, and was found to be hypoxic with oxygen saturations in the 70s. She was placed on 3 L nasal cannula and oxygen saturation maintained above 92%. She has a history of COPD, tobacco use disorder. She was also seen in the emergency room on 03/03/2025 for COPD exacerbation and discharged home with azithromycin and prednisone. She denies any other medical conditions, chest pain, abdominal pain, nausea, vomiting, fever, chills, weakness. She does endorse smoking approximately half to 1 pack of cigarettes per day. She does state that she is trying to cut back. #COPD exacerbation #Acute hypoxic respiratory failure ?Assessment this morning patient had wheezing throughout, wheezing has improved this afternoon lung sounds CTA. Patient does remain short of breath without oxygen. O2 saturation 87% on room air. 93% on 2 L nasal cannula. Will discharge patient home with 2 L nasal cannula. She is not currently on maintenance therapy for her COPD. Patient states that she feels minimally better from yesterday, still very short of breath. CTA unremarkable. ? Continue prednisone 40 mg x 5 days total, doxycycline 100 mg twice daily x 5 days total, DuoNebs 4 times daily, Trelegy inhaler once daily. ? Patient O2 saturation 87% on room air, patient placed back on 2 L nasal cannula at this time. ? Patient viral respiratory panel negative. MRSA PCR positive. ?Sputum culture obtained, preliminary showing gram-positive cocci. Sputum culture preliminary is negative. ?Leukocytosis 15.8 on admission, continues to trend down, 12.2 today. ?Chest x-ray showed does left lower lobe consolidation, treat for presumed pneumonia. ?Close outpatient follow-up with pulmonology and PCP. #Tobacco use disorder ?Patient counseled on smoking cessation, declined nicotine patch. #Obesity ?Obesity complicates all aspects of care, BMI 36 Total time spent on discharge 32 minutes in counseling, documentation, chart review, and direct care with patient. Exam Data for Last 24 hours Vital signs and Labs for Last 24 Hours: Temp Pulse Resp BP Pulse Ox O2 Del Method O2 Flow Rate 98.1 F 108 H 22 128/82 92 L Nasal Cannula 2 03/07/25 08:00 03/07/25 16:10 03/07/25 16:10 03/07/25 08:00 03/07/25 16:10 03/07/25 16:10 03/07/25 16:10 Laboratory Results - last 24 hr 03/06/25 11:30: MRSA (PCR) Positive A 03/07/25 08:26: WBC 12.2 H, RBC 4.37, Hgb 12.0 L, Hct 38.3, MCV 87.6, MCH 27.5, MCHC 31.3 L, RDW 13.4, Plt Count 304, MPV 9.9, Neut % (Auto) 74.7, Lymph % (Auto) 20.9, Emmet % (Auto) 3.0, Eos % (Auto) 0.2, Baso % (Auto) 0.2, Neut # (Auto) 9.1 H, Lymph # (Auto) 2.5, Emmet # (Auto) 0.4, Eos # (Auto) 0.0, Baso # (Auto) 0.0, Sodium 140, Potassium 3.1 L D, Chloride 96 L, Carbon Dioxide 32 H, Anion Gap 15.1 H, BUN 9, Creatinine 0.70, Estimated Creat Clear 85, Estimated GFR 85, Est GFR ( Amer) 103, Glucose 149 H, Lactate 2.7 H, Calcium 8.9, Total Bilirubin 0.3, AST 25, ALT 19, Alkaline Phosphatase 81, Total Protein 7.1, Albumin 3.8, Globulin 3.3 H, Albumin/Globulin Ratio 1.2 03/07/25 12:40: Lactate 2.1 03/07/25 14:51: Lactate 2.8 H Temp Pulse Resp BP Pulse Ox O2 Del Method O2 Flow Rate 97.7 F 94 H 18 124/68 95 Nasal Cannula 1 05/31/23 07:44 05/31/23 07:44 05/31/23 07:44 05/31/23 07:44 05/31/23 08:00 05/31/23 09:58 05/31/23 09:58 Laboratory Results - last 24 hr 05/30/23 08:15: Chlamy pneumoniae PCR TNP, Adenovirus (PCR) Not detected, B. pertussis DNA (PCR) TNP, Coronavirus OC43 (PCR) Detected A, Coronavirus HKU1 (PCR) Not detected, Coronavirus 229E (PCR) Not detected, SARS-CoV-2 (PCR) Not detected, Coronavirus NL63 (PCR) Not detected, Human Metapneumovir PCR Not detected, Influenza A (H1) PCR Not detected, Influ A (H1N1/09) PCR Not detected, Influenza A (H3) PCR Not detected, Influenza Type A (PCR) Not detected, Influenza Type B (PCR) Not detected, M. pneumoniae (PCR) TNP, Parainfluenza 1 (PCR) Not detected, Parainfluenza 2 (PCR) Not detected, Parainfluenza 3 (PCR) Not detected, Parainfluenza 4 (PCR) Not detected, RSV (PCR) Not detected, Entero/Rhino (PCR) Not detected 05/31/23 06:15: WBC 6.9, RBC 4.59, Hgb 12.8, Hct 40.0, MCV 87.1, MCH 27.9, MCHC 32.0, RDW 14.1, Plt Count 232, MPV 8.2, Neut % (Auto) 69.0, Lymph % (Auto) 24.6, Emmet % (Auto) 5.3, Eos % (Auto) 0.9, Baso % (Auto) 0.2, Neut # (Auto) 4.8, Lymph # (Auto) 1.7, Emmet # (Auto) 0.4, Eos # (Auto) 0.1, Baso # (Auto) 0.0, Sodium 137, Potassium 3.7 D, Chloride 103, Carbon Dioxide 28, Anion Gap 9.7, BUN 7, Creatinine 0.60, Estimated Creat Clear 142, Estimated GFR 102, Est GFR ( Amer) 124, Glucose 99, Calcium 7.9 L I & O for Last 24 hours: Intake & Output 03/04/25 03/05/25 03/06/25 03/07/25 23:59 23:59 23:59 23:59 Intake Total 1080 / 1180 820 / 820 Output Total 800 / 800 0 / 0 Balance 280 / 380 820 / 820 Weight 90.718 kg 90.718 kg 90.718 kg Intake & Output 05/28/23 05/29/23 05/30/23 05/31/23 23:59 23:59 23:59 23:59 Intake Total 1550 / 1700 370 / 370 Output Total 0 / 0 0 / 0 0 / 0 Balance 0 / 0 1550 / 1700 370 / 370 Weight 88.989 kg 88.989 kg 89 kg Microbiology Reports for the Last 24 Hours: Microbiology 03/05/25 22:00 Sputum - Expectorated Sputum Gram Stain - Final 03/05/25 22:00 Sputum - Expectorated Sputum Sputum Culture - Preliminary Constitutional Constitutional: obese and cooperative *Routine HEENT Exam Head: Present normocephalic Eye: Present EOMI ENT: Present mucous membranes moist *Routine Neck Exam Neck: Present supple and full ROM *Routine Respiratory Exam Respiratory: Present normal respiratory effort and symmetric chest movement; Absent respiratory distress or wheezes *Routine Cardiovascular Exam Cardiovascular: Present RRR, Normal S1 and Normal S2 *Routine Abdominal Exam Abdominal: Present soft and normoactive bowel sounds; Absent tenderness *Routine Rectal Exam Patient deferred: visual exam *Routine Exam Patient deferred: external exam *Routine Extremities Exam Extremities: Absent edema *Routine Skin Exam Skin: Present intact and dry *Routine Neurological Exam Neurological: Present alert, oriented X3, vision grossly intact, hearing grossly intact and normal speech Routine Psychiatric Exam Psychiatric: Present normal affect, normal thought process, cooperative, good insight and good judgment Results Data Completed and Pending Labs on day of discharge: Labs from last 24 hours 03/07/25 03/07/25 03/07/25 14:51 12:40 08:26 WBC 12.2 H RBC 4.37 Hgb 12.0 L Hct 38.3 MCV 87.6 MCH 27.5 MCHC 31.3 L RDW 13.4 Plt Count 304 MPV 9.9 Neut % (Auto) 74.7 Lymph % (Auto) 20.9 Emmet % (Auto) 3.0 Eos % (Auto) 0.2 Baso % (Auto) 0.2 Neut # (Auto) 9.1 H Lymph # (Auto) 2.5 Emmet # (Auto) 0.4 Eos # (Auto) 0.0 Baso # (Auto) 0.0 Sodium 140 Potassium 3.1 L D Chloride 96 L Carbon Dioxide 32 H Anion Gap 15.1 H BUN 9 Creatinine 0.70 Estimated Creat Clear 85 Estimated GFR 85 Est GFR ( Amer) 103 Glucose 149 H Lactate 2.8 H 2.1 2.7 H Calcium 8.9 Total Bilirubin 0.3 AST 25 ALT 19 Alkaline Phosphatase 81 Total Protein 7.1 Albumin 3.8 Globulin 3.3 H Albumin/Globulin Ratio 1.2 MRSA (PCR) 03/06/25 11:30 WBC RBC Hgb Hct MCV MCH MCHC RDW Plt Count MPV Neut % (Auto) Lymph % (Auto) Emmet % (Auto) Eos % (Auto) Baso % (Auto) Neut # (Auto) Lymph # (Auto) Emmet # (Auto) Eos # (Auto) Baso # (Auto) Sodium Potassium Chloride Carbon Dioxide Anion Gap BUN Creatinine Estimated Creat Clear Estimated GFR Est GFR ( Amer) Glucose Lactate Calcium Total Bilirubin AST ALT Alkaline Phosphatase Total Protein Albumin Globulin Albumin/Globulin Ratio MRSA (PCR) Positive A Preliminary micro results at discharge 03/05/25 22:00 Sputum Culture - Preliminary Sputum - Expectorated Sputum DS: Diagnosis Discharge Diagnosis (1) Acute and chronic respiratory failure with hypoxia: Status: Acute Code(s): J96.21 - Acute and chronic respiratory failure with hypoxia (2) COPD exacerbation: Status: Acute Code(s): J44.1 - Chronic obstructive pulmonary disease with (acute) exacerbation (3) Tobacco use: Status: Chronic Code(s): Z72.0 - Tobacco use (4) BMI greater than 30: Status: Chronic Meds Home Medications and Allergies Home Medications ?Medication ?Instructions ?Recorded ?Confirmed ?Type prednisone 20 mg tablet 40 mg PO DAILY 03/06/2502/19 History doxycycline hyclate 100 mg capsule 100 mg PO DAILY #7 caps 03/07/25 Rx fluticasone fur. 100 mcg-umeclid 1 inh inhalation JEANCARLOS Y #60 ea 03/07/25 Rx 62.5 mcg-vilant 25 mcg inhalat.powder (Trelegy Ellipta) ipratropium 0.5 mg-albuterol 3 mg 3 ml inhalation QID #90 mL 03/07/25 Rx (2.5 mg base)/3 mL nebulization soln New Prescriptions to Start Prescriptions: doxycycline hyclate Brit Gallardo [id number] [Trelegy Ellipta] Brit Gallardo ipratropium-albuterol Brit Gallardo Allergies Allergy/AdvReac Type Severity Reaction Status Date / Time No Known Allergies Allergy Verified 03/05/25 14:21 Discharge Plan Disposition Patient Disposition: Home, Self-Care Condition: Fair Discharge Order Discharge Orders: Discharge Order (Routine); Ordered 03/07/25 Ordered By: Brit Gallardo Follow up Plan Follow up with: Fabien Salinas MD [Physician, Pulmonology] - Enter time for follow up Prescriptions/Medication Reconciliation: New doxycycline hyclate 100 mg capsule 100 mg PO DAILY Qty: 7 0RF Trelegy Ellipta 100-62.5-25 mcg blister with device 1 inh inhalation DAILY Qty: 60 0RF ipratropium-albuterol 0.5 mg-3 mg(2.5 mg base)/3 mL solution for nebulization 3 ml inhalation QID Qty: 90 0RF Continued prednisone 20 mg tablet 40 mg PO DAILY Patient Comments: TAKE 2 TABLETS BY MOUTH ONCE DAILY FOR 5 DAYS Discontinued azithromycin 250 mg tablet 250 mg PO DAILY Patient Comments: TAKE 1 TABLET BY MOUTH ONCE DAILY FOR 4 DAYS; START ON DAY 2 OF THERAPY Other Ambulatory Orders: Home Medical Equipment (Routine) Location: None Selected Ordered By: Brit Gallardo Problem Reconciliation Problems Reviewed?: Yes Patient Discharge Instructions ACTIVITY: Continue current activity DIET: continue same diet Patient Instructions: DI for Chronic Obstructive Pulmonary Disease, DI for Respiratory Failure, DI for Hypoxia, Stop Light Pneumonia, Stop Light COPD Print Language: Maori Providers Primary Care Provider: Provider,Referral Admit Provider: Dawit Burr Attending Provider: Dawit Burr
--- NOTE | 2025-03-07 18:12 | PC.NURSE ---
PT WAS CALLED AND INSTRUCTED TO ONLY TAKE DOXYCYCLINE TWICE A DAY FOR 3 DAYS PER HOSPITALIST.
--- NOTE | 2025-03-08 10:12 | SW/DCPLANNER ---
Spoke with patient on the phone. Patient stated that she is doing okay. Patient stated that she is aware of her upcoming appointment. Patient stated that she was able to get her new medicine from clinic pharmacy. Patient stated that she has no concerns or questions at this time. Byron Phillips
== END 2025-03-07 18:05 | disposition home or self-care (01) | DRG 190 ==
LOC: ER 17:33 → 2ND 20:19
PROVIDERS: Nurse Practitioner Acute Care; Physician Assistant; Admitting Provider Student in an Organized Health Care Education/Training Program; Emergency Provider Student in an Organized Health Care Education/Training Program; Visit Provider Student in an Organized Health Care Education/Training Program
DX: J44.1 Chronic obstructive pulmonary disease with (acute) exacerbation (principal); J18.9 Pneumonia, unspecified organism; J96.21 Acute and chronic respiratory failure with hypoxia; J96.92 Respiratory failure, unspecified with hypercapnia; J44.0 Chronic obstructive pulmonary disease with (acute) lower respiratory infection; E66.9 Obesity, unspecified; G47.33 Obstructive sleep apnea (adult) (pediatric); B95.62 Methicillin resistant Staphylococcus aureus infection as the cause of diseases classified elsewhere; Z68.36 Body mass index [BMI] 36.0-36.9, adult; Z71.6 Tobacco abuse counseling; Z79.899 Other long term (current) drug therapy
CPT/HCPCS: 36415; 71045; 71275; 80048; 80053; 82803; 83605; 83735; 83880; 84484; 85025; 87070; 87205; 87633; 87641; 93005; 93306; 94618; 94640; 94761; J0456; J0696; J2919; J7050; Q9967

== ENCOUNTER 2025-03-13 09:48 | Outpatient (CLI) | payer OTHER, SELFPAY ==
[2025-03-13 15:26] LABS: Hematocrit 45.6 % (37.0-47.0); Hemoglobin 13.7 g/dL (12.2-16.2); Immature Granulocytes % 4.3 %; Mean Corpuscular HGB Conc 30.0 g/dL (31.8-35.4); Mean Corpuscular Hemoglobin 27.3 pg (27.0-31.2); Mean Corpuscular Volume 91.0 fl (81-99); Nucleated Red Blood Cells % 0 %; Platelet Count 366 K/mm3 (142-424); Red Blood Count 5.01 M/mm3 (4.20-5.40); Red Cell Distribution Width-SD 45.5 fL; White Blood Count 11.5 K/mm3 (4.8-10.8)
[2025-03-13 15:41] LABS: Albumin Level 3.8 g/dl (3.5-5.0); Chloride 97 mmol/L (98-107)
[2025-03-13 15:42] LABS: Potassium 5.3 mmoL/L (3.5-5.1); Sodium 136 mmol/L (136-145)
[2025-03-13 17:27] LABS: Alanine Aminotransferase 19 U/L (12-78); Alkaline Phosphatase 102 U/L (38-126); Anion Gap 12.3 mEq/L (5-15); Aspartate Amino Transferase 22 U/L (14-36); Bilirubin,Total 0.7 mg/dl (0.2-1.3); Blood Urea Nitrogen 11 mg/dl (7-17); Carbon Dioxide 32 mmol/L (22.0-30.0); Creatinine,Serum 0.70 mg/dl (0.52-1.04); Estimated Glomerular Filt Rate 85 ml/min (>60); GFR (African American) 103 ML/MIN (>60)
[2025-03-13 17:28] LABS: Albumin/Globulin Ratio 1.2 (1.1-1.8); Calcium 9.5 mg/dl (8.4-10.2); Globulin 3.3 g/dL (1.3-3.2); Glucose 121 mg/dl (74-100); Total Protein,Serum 7.1 g/dl (6.3-8.2)
--- OUTSIDE RECORDS SUMMARY | 2025-03-14 14:56 | XMS_ITS | Clinical Summary ---
Author Organization [facility] Address [address] [place] [address] Phone Care Team Providers Care Track Template Maker Name Role Phone Unavailable Primary Care Provider [...] studies. IMPRESSION- No radiographic evidence of malignancy ([id number]) RECOMMENDATION- Routine screening mammogram in 1 year. * The patient with a palpable abnormality, unexplained by breast imaging, should be managed on clinical basis by the attending physician. * Breast imaging has a false negative rate of 15%. * The patient was notified by mail of the results of this examination. The mammogram was reviewed by a Radiologist and CAD. Civil Rights Representative- MIRELA LEMUS Reading Radiologist- ELAN MELENDEZ MD Released Date Time- 12/26/05 2133 Procedure Note Elan Melendez - 10/29/2009 Procedure-MV MAMMO SCREEN W/CAD PANEL Mobile Screening Mammogram Bilateral CC and MLO view(s) were taken. Prior study comparison- December 24, 2004, bilateral mobile screening mammogram. There are scattered fibroglandular densities. No significant changes when compared with prior studies. IMPRESSION- No radiographic evidence of malignancy ([id number]) RECOMMENDATION- Routine screening mammogram in 1 year. * The patient with a palpable abnormality, unexplained by breast imaging, should be managed on clinical basis by the attending physician. * Breast imaging has a false negative rate of 15%. * The patient was notified by mail of the results of this examination. The mammogram was reviewed by a Radiologist and CAD. Civil Rights Representative- MIRELA Patel Radiologist- ELAN MELENDEZ MD Released Date Time- 12/26/05 2133 [facility]ISTORICAL Fin al Result from Last 3 Months or Most Recently Relevant to Health Maintenance Insurance [employer]
== END 2025-03-13 23:59 | disposition home or self-care (01) ==
LOC: LAB.DROPOF 03-14 14:54
PROVIDERS: PCP Nurse Practitioner; Visit Provider Nurse Practitioner
DX: J44.9 Chronic obstructive pulmonary disease, unspecified (principal); J96.21 Acute and chronic respiratory failure with hypoxia; Z72.0 Tobacco use
CPT/HCPCS: 80053; 85025

== ENCOUNTER 2025-06-20 07:35 | Outpatient (CLI) | payer OTHER, SELFPAY ==
[2025-06-20] MEDS: ALBUTEROL 0.083% 2.5 MG/3 ML NEB IH (08:42)
== END 2025-06-20 23:59 | disposition home or self-care (01) ==
LOC: RT 07:35
PROVIDERS: PCP Nurse Practitioner; Visit Provider Internal Medicine Pulmonary Disease
DX: J44.9 Chronic obstructive pulmonary disease, unspecified (principal); R94.2 Abnormal results of pulmonary function studies
CPT/HCPCS: 94060; 94618; 94726; 94729